=== PATIENT | male | born 1980 | race Two or more races ===

== ENCOUNTER 2016-12-27 00:09 | Inpatient (IN) | payer MEDICAID, OTHER ==
[~2016-12-27] VITALS: Ht 170.2 cm; Wt 102.5 kg
[~2016-12-27 00:09] MED LIST: ASPI-605 PO; ATOR80TA PO; ENAL10TA PO; FLUC100T8 PO; Gemfibrozil PO; HYDR-552 PO; INSU100I14 SQ; INSU100V10 SQ; METF10002 PO; NIAC500T8 PO; PANT40TA2 PO
[2016-12-27] MEDS ORDERED: IV NORMAL SALINE 1000 ML BAG IV ONE (00:30)
[2016-12-27] MEDS ORDERED: ONDANSETRON 4 MG/2 ML VIAL IV ONE (00:30)
[2016-12-27] MEDS ORDERED: HYDROMORPHONE 1 MG/1 ML DISP.SYRIN IV ONE ×2 (00:30→02:00)
--- NOTE | 2016-12-27 00:30 | NUR ---
PATIENT WALKED INTO ER C/O CP RADIATING TO BILATERAL LOWER QAUDRANT THAT STARTED IN THE AM OF 12/26/16. PATIENT IS NAUSEATED BUT HAS NOT VOMITIED. CAME IN FOR WORSENING PAIN
[2016-12-27] MEDS ORDERED: FENO145T20 PO (00:33)
[2016-12-27] MEDS ORDERED: GLIM4TAB3 PO (00:33)
[2016-12-27] MEDS ORDERED: JANUMET PO (00:33)
--- NOTE | 2016-12-27 00:33 | NUR ---
PT GAVE ME NAMES,DOSES AND FREQUENCY OF DAILY MEDS.PT STATES TAKES ONLY 4 MEDS NOW
[2016-12-27] MEDS ORDERED: HYDROMORPHONE 1 MG/1 ML DISP.SYRIN ONE ×3 (00:41→06:25)
[2016-12-27] MEDS ORDERED: ONDANSETRON 4 MG/2 ML VIAL ONE (00:41)
[2016-12-27 01:11] LABS: HEMOGLOBIN 16.3 G/DL (14.0-18.0); MEAN CORPUSCULAR HEMOGLOBIN 33.2 UUG (27.0-31.0); MEAN CORPUSCULAR HGB CONC 41 g/dL (32.0-37.0); MEAN CORPUSCULAR VOLUME 81.7 FL (82.0-92.0); PLATELET COUNT (AUTO) 355 K/UL (150-450); WHITE BLOOD COUNT (AUTO) 10.1 K/UL (4.0-11.2)
[2016-12-27 01:22] LABS: BAND % (MANUAL) 2 % (0-10); EOSINOPHILS % (MANUAL) 2 % (0-8); LYMPHOCYTES % (MANUAL) 36 % (20-40); MONOCYTES % (MANUAL) 2 % (2-10); NEUTROPHILS % (MANUAL) 58 % (42-75)
[2016-12-27 01:51] LABS: BILIRUBIN,TOTAL 1.4 mg/dL (0.1-1.0); POTASSIUM 3.3 mmol/L (3.5-5.1)
[2016-12-27 01:52] LABS: BILIRUBIN,DIRECT 0.1 mg/dL (0.0-0.2)
[2016-12-27] MEDS ORDERED: POTASSIUM CHLORIDE 40 MEQ in IV NS 1000 ML 1,000 ML IV STA (02:08)
[2016-12-27] MEDS ORDERED: IV NS 1000 ML 1,000 ML IV PRN (02:51)
[2016-12-27] MEDS ORDERED: MORPHINE SULFATE 2 MG/1 ML DISP.SYRIN IV PRN (03:00)
[2016-12-27] MEDS ORDERED: Z GUARD REMEDY PASTE 57 GM TUBE TOP PRN (03:00)
[2016-12-27] MEDS ORDERED: ONDANSETRON 4 MG/2 ML VIAL IV PRN (03:00)
[2016-12-27] MEDS ORDERED: TEMAZEPAM 7.5 MG CAPSULE PO PRN (03:00)
[2016-12-27] MEDS ORDERED: MAGNESIUM HYDROXIDE 30 ML LIQUID UDC PO PRN (03:00)
[2016-12-27] MEDS ORDERED: DEXTROSE 50% 50 ML DISP.SYRIN IV PRN (03:00)
[2016-12-27] MEDS ORDERED: INSULIN REGULAR, HUMAN 300 UNITS/3 ML VIAL SQ PRN (03:00)
[2016-12-27] MEDS ORDERED: ACETAMINOPHEN 325 MG TABLET PO PRN (03:00)
--- NOTE | 2016-12-27 03:02 | NUR ---
Transfered to 2nd floor Med Surg via antonio
--- NOTE | 2016-12-27 03:30 | NUR ---
CALL TO DR. VEE FOR CLARIFICATION OF ORDERS REGARDING IVF ORDERED BY ER-MD. PER DR. VEE, OKAY TO COMPLETE 1ST BAG OF 40 MEQ KCL IN 1L NS THEN CONTINUE MAINTENANCE IVF. PATIENT ALSO STATED THAT ORDERED MORPHINE DOES NOT MANAGE HIS PAIN WELL IN PAST, REQUESTED DILAUDID INSTEAD. NOTIFIED DR. VEE, ORDERS RECEIVED. SEE ORDER HISTORY.
[2016-12-27] MEDS ORDERED: HYDROMORPHONE 1 MG/1 ML DISP.SYRIN IM PRN (03:45)
[2016-12-27 04:36] VITALS: BP 121/90
[2016-12-27 05:10] LABS: TOTAL PROTEIN, SERUM 7.4 g/dL (6.4-8.2)
[2016-12-27 05:12] LABS: CREATININE 1.1 mg/dL (0.6-1.3)
--- NOTE | 2016-12-27 06:58 | NUR ---
STK MED ONCE 1 mg Dilaudid pulled from pyxis, administered as ordered. See eMAR
[2016-12-27] MEDS ORDERED: GLIMEPIRIDE 4 MG TABLET PO SCH (08:00)
--- NOTE | 2016-12-27 08:00 | NUR ---
RERSTING WELL NO SOB OR N/V OR PAIN AT THIS TIME CONTINUE IVF EAT CLEAR LIQ DIET MOD AMT CALL COE IN REACH AND INSTRUCTION TO CALL WHEN NEEDED
[2016-12-27] MEDS: PANTOPRAZOLE SODIUM 40 MG TABLET.DR PO SCH (08:38)
[2016-12-27] MEDS: ASPIRIN EC 81 MG TABLET.DR PO SCH (08:38)
[2016-12-27] MEDS: BLOOD SUGAR DIAGNOSTIC 1 EACH STRIP VI SCH ×8 (08:39→23:06)
[2016-12-27] MEDS ORDERED: METFORMIN HCL 500 MG TABLET PO SCH (09:00)
[2016-12-27] MEDS ORDERED: FENOFIBRATE NANOCRYSTALLIZED 145 MG TABLET PO SCH (09:00)
[2016-12-27] MEDS ORDERED: LINAGLIPTIN 5 MG TABLET PO SCH (09:00)
[2016-12-27] MEDS ORDERED: JANUMET PO SCH (09:00)
[2016-12-27] MEDS: INSULIN REGULAR, HUMAN 300 UNIT/3 ML VIAL SQ PRN ×2 (09:29→12:25)
--- NOTE | 2016-12-27 09:30 | NUR ---
ELDER BAINS SEE PATIENT AND LAB RESULT AND ORDER IN CHART
[2016-12-27 09:48] LABS: HEMATOCRIT 37.4 % (40-50); HEMOGLOBIN 14.7 G/DL (14.0-18.0); MEAN CORPUSCULAR HEMOGLOBIN 32.6 UUG (27.0-31.0); MEAN CORPUSCULAR HGB CONC 39 g/dL (32.0-37.0); MEAN CORPUSCULAR VOLUME 83.1 FL (82.0-92.0); PLATELET COUNT (AUTO) 342 K/UL (150-450); RED BLOOD CELL COUNT(AUTO) 4.51 MIL/UL (4.7-6.1); WHITE BLOOD COUNT (AUTO) 8.1 K/UL (4.0-11.2)
--- NOTE | 2016-12-27 10:00 | NUR ---
NPO FOR CT SCAN OF ABD WITHUOT CONTRAST
[2016-12-27] MEDS: HYDROMORPHONE 1 MG/1 ML DISP.SYRIN IV PRN ×4 (10:15→21:10)
--- NOTE | 2016-12-27 10:30 | NUR ---
TO CT SCAN VIA W/C CONDITION STABLE
--- NOTE | 2016-12-27 10:45 | NUR ---
BACK TO ROOM DR MILLER SEE PATIENT AND URINE SENT TO LAB ORDER
[2016-12-27 10:59] LABS: EOSINOPHILS % (MANUAL) 2 % (0-8); LYMPHOCYTES % (MANUAL) 39 % (20-40); NEUTROPHILS % (MANUAL) 59 % (42-75)
[2016-12-27 11:51] LABS: *BLOOD, URINE NEGATIVE (NEGATIVE); *CLARITY,URINE CLEAR (CLEAR); *COLOR,URINE YELLOW (YELLOW); *KETONES,URINE NEGATIVE (NEGATIVE); *PROTEIN,URINE 1+ (NEGATIVE); *UROBILINOGEN,URINE 0.2 E.U./dl (NORMAL); LEUKOCYTE ESTERASE ,URINE NEGATIVE (NEGATIVE); NITRITE, URINE NEGATIVE (NEGATIVE); PH,URINE 5.5 (5.0-8.0)
[2016-12-27] MEDS ORDERED: POTASSIUM CHLORIDE 20 MEQ TAB.PRT.SR PO ONE (12:00)
[2016-12-27 12:02] LABS: *BILIRUBIN,URIN 1+ (NEGATIVE); UGLUCOSE 2+ (NEGATIVE)
[2016-12-27 12:16] LABS: RBC,URINE 0-3 /HPF (0-3)
[2016-12-27 12:17] LABS: BACTERIA,URINE FEW /HPF (NONE SEEN); SQUAMOUS EPITHELIAL CELL,UR MANY /HPF (NONE SEEN)
--- NOTE | 2016-12-27 13:06 | NUR ---
Pt reassignment and full SBAR report received by WOODY Ball.
[2016-12-27 13:16] VITALS: BP 108/75
[2016-12-27 13:42] LABS: BASOPHILS % (AUTO) 0.7 % (0.0-2.0); EOSINOPHILS # (AUTO) 0.3 K/uL (0.0-0.7); EOSINOPHILS % (AUTO) 4.9 % (0.0-7.0); LYMPHOCYTES # (AUTO) 2.8 K/UL (0.8-4.8); MONOCYTES # (AUTO) 0.5 K/UL (0.1-1.30); MONOCYTES % (AUTO) 6.9 % (0.0-11.0); NEUTROPHILS # (AUTO) 3.2 K/UL (1.8-8.9); NEUTROPHILS % (AUTO) 45.5 % (38.5-71.5); PLATELET COUNT (AUTO) 317 K/UL (150-450); WHITE BLOOD COUNT (AUTO) 6.8 K/UL (4.0-11.2)
[2016-12-27] MEDS: CEFTRIAXONE 1 G in IV DEXTROSE 5% 50 ML IV SCH (13:42)
[2016-12-27 14:49] LABS: HEMATOCRIT 33.7 % (40-50); HEMOGLOBIN 11.4 G/DL (14.0-18.0); MEAN CORPUSCULAR HEMOGLOBIN 28.1 UUG (27.0-31.0); MEAN CORPUSCULAR HGB CONC 34 g/dL (32.0-37.0); MEAN CORPUSCULAR VOLUME 83.4 FL (82.0-92.0); RED BLOOD CELL COUNT(AUTO) 4.04 MIL/UL (4.7-6.1)
[2016-12-27] MEDS: IV D5/ 0.9% NACL 1,000 ML IV PRN (16:00)
[2016-12-27] MEDS: GEMFIBROZIL 600 MG TABLET PO SCH ×2 (16:03→20:14)
[2016-12-27] MEDS ORDERED: BLOOD SUGAR DIAGNOSTIC 1 EACH STRIP VI SCH (16:30)
[2016-12-27] MEDS ORDERED: INSULIN REGULAR, HUMAN 100 UNIT in IV NORMAL SALINE 99 ML IV PRN ×2 (16:30)
[2016-12-27 16:39] VITALS: BP 127/82
[2016-12-27] MEDS: INSULIN REGULAR, HUMAN 100 UNIT in IV NORMAL SALINE 99 ML IV PRN ×2 (17:04)
[2016-12-27 17:15] LABS: BILIRUBIN,TOTAL 0.5 mg/dL (0.1-1.0); POTASSIUM 4.5 mmol/L (3.5-5.1)
[2016-12-27 17:16] LABS: TOTAL PROTEIN, SERUM 7.2 g/dL (6.4-8.2)
[2016-12-27 17:18] LABS: MAGNESIUM 1.5 mg/dL (1.8-2.4); PHOSPHOROUS 4.1 mg/dL (2.5-4.9)
--- NOTE | 2016-12-27 19:20 | NUR ---
Made rounds and seen patient lying high bentley's position with sister and mother. Pt is full AOX4 ambulates to bathroom, non labored breathing, on telebox cardiac rehab nurse w/ SR on the monitor 90's. Denies any discomfort (epigastric pain). On continuos insulin drip and on blood sugar monitoring.
--- NOTE | 2016-12-27 19:32 | NUR ---
End of shift: Pt resting in bed awake and alert with family at the bedside. director quality systems and alarms working properly wnl. IV insulin drip infusing as ordered per protocol. IVF infusing as ordered. All needs met. Pt stable and nad noted.
[2016-12-27 20:00] VITALS: BP 118/90
[2016-12-27] MEDS: NIACIN 500 MG TABLET PO SCH (20:13)
--- NOTE | 2016-12-27 20:50 | NUR ---
Dr. Reeves changed protocol blood sugar range from 95-150 to 80 to 100mg/dl. Following same protocol with different range. BS @ 2000 119mg/dl.
--- NOTE | 2016-12-27 21:00 | NUR ---
BS is 120mg/dl. Kept the same rate 1 unit/hr.Encouaraged to rest and drink water, compliant.
--- NOTE | 2016-12-27 22:00 | NUR ---
BS 119mg/dl, kept the same rate 1 unit/hr. Pt observed resting/sleeping, continue monitor.
[2016-12-28] VITALS: BP 114/82
--- NOTE | 2016-12-28 | NUR ---
BS 115mg/dl, kept Insulin drip 1 unit/hr. Continue monitor. Pt intermittently awake.
[2016-12-28] MEDS: BLOOD SUGAR DIAGNOSTIC 1 EACH STRIP VI SCH ×25 (00:22→23:49)
--- NOTE | 2016-12-28 01:00 | NUR ---
BS 114mg/dl, maintained 1 unit /hr of insulin drip.
[2016-12-28] MEDS: HYDROMORPHONE 1 MG/1 ML DISP.SYRIN IV PRN ×6 (01:10→21:14)
--- NOTE | 2016-12-28 02:00 | NUR ---
Blodd sugar 129mg/dl, continue Insulin drip of 1 unit/hr.Continue monitor.
[2016-12-28 04:00] VITALS: BP 114/84
[2016-12-28] MEDS: IV D5/ 0.9% NACL 1,000 ML IV PRN ×2 (05:09→15:35)
[2016-12-28] MEDS: HYDROCODONE/APAP 5-325MG TABLET PO PRN (06:19)
[2016-12-28] MEDS: PANTOPRAZOLE SODIUM 40 MG TABLET.DR PO SCH (06:21)
--- NOTE | 2016-12-28 07:00 | NUR ---
BS has been below 150mg/dl, BS check Q1.Remained on Insulin drip 1unit/hr. Lowest BS was 114mg/dl and highest is 150mg/dl for the whole shift.
--- NOTE | 2016-12-28 07:10 | NUR ---
Report to WOODY Menendez
[2016-12-28 07:31] LABS: HEMATOCRIT 35.8 % (40-50); HEMOGLOBIN 12.6 G/DL (14.0-18.0); MEAN CORPUSCULAR HEMOGLOBIN 29.5 UUG (27.0-31.0); MEAN CORPUSCULAR HGB CONC 35 g/dL (32.0-37.0); MEAN CORPUSCULAR VOLUME 83.6 FL (82.0-92.0); PLATELET COUNT (AUTO) 264 K/UL (150-450); RED BLOOD CELL COUNT(AUTO) 4.28 MIL/UL (4.7-6.1); WHITE BLOOD COUNT (AUTO) 5.3 K/UL (4.0-11.2)
[2016-12-28] MEDS: GEMFIBROZIL 600 MG TABLET PO SCH ×2 (08:02→20:49)
[2016-12-28] MEDS: ASPIRIN EC 81 MG TABLET.DR PO SCH (08:02)
[2016-12-28 10:56] LABS: CREATININE 0.7 mg/dL (0.6-1.3); PHOSPHOROUS 3.7 mg/dL (2.5-4.9)
[2016-12-28 10:58] LABS: MAGNESIUM 1.6 mg/dL (1.8-2.4); THYROID STIMULATING HORMONE 1.664 mIU/mL (0.358-3.740); TOTAL PROTEIN, SERUM 6.7 g/dL (6.4-8.2)
[2016-12-28 10:59] LABS: BILIRUBIN,TOTAL 0.6 mg/dL (0.2-1.0); POTASSIUM 4.2 mmol/L (3.5-5.1)
[2016-12-28 11:47] VITALS: BP 118/86
[2016-12-28] MEDS: CEFTRIAXONE 1 G in IV DEXTROSE 5% 50 ML IV SCH (13:16)
[2016-12-28 14:28] LABS: BAND % (MANUAL) 2 % (0-10); EOSINOPHILS % (MANUAL) 10 % (0-8); LYMPHOCYTES % (MANUAL) 48 % (20-40); METAMYELOCYTES % 1 % (0-1); MONOCYTES % (MANUAL) 6 % (2-10); NEUTROPHILS % (MANUAL) 33 % (42-75)
--- NOTE | 2016-12-28 15:02 | NUR ---
ELDER Watters here to see pt. Full report given. New orders received. stated that it was okay for pt to advance diet to full liquids.
[2016-12-28 16:24] VITALS: BP 123/85
[2016-12-28] MEDS: INSULIN REGULAR, HUMAN 100 UNIT in IV NORMAL SALINE 99 ML IV PRN ×2 (17:22)
--- NOTE | 2016-12-28 18:44 | NUR ---
End of shift: Pt resting in bed awake and alert. child monitor and alarms working properly wnl. IV insulin drip infusing as ordered per protocol. IVF infusing as ordered. All needs met. Pt stable and nad noted.
[2016-12-28 20:00] VITALS: BP 124/89
--- NOTE | 2016-12-28 20:00 | NUR ---
RECEIVED PT. AWAKE, ALERT & ORIENTED X4. C/O PAIN ON UPPER ABD. REPOSITIONED, DOES NOT NEED MED. FOR PAIN THIS TIME. IVF D5NS @ 100CC/HR ON RFA. ON REGULAR INSULIN DRIP @ 1 UNIT/HR. ON RM AIR W/ O2 SAT OF 100%.
[2016-12-28] MEDS: NIACIN 500 MG TABLET PO SCH (20:49)
--- NOTE | 2016-12-28 21:13 | NUR ---
C/O UPPER ABD. PAIN SCALE OF 6/10, MEDICATED W/ DILAUDID 1MG IVP ORDERED.
[2016-12-29] VITALS: BP 118/87
[2016-12-29] MEDS: BLOOD SUGAR DIAGNOSTIC 1 EACH STRIP VI SCH ×20 (00:58→23:48)
[2016-12-29] MEDS: HYDROMORPHONE 1 MG/1 ML DISP.SYRIN IV PRN ×6 (01:11→22:19)
[2016-12-29] MEDS: IV D5/ 0.9% NACL 1,000 ML IV PRN ×3 (02:41→20:28)
[2016-12-29 04:00] VITALS: BP 118/82
--- NOTE | 2016-12-29 06:00 | NUR ---
RESTING QUITELY THIS TIME.
[2016-12-29] MEDS: PANTOPRAZOLE SODIUM 40 MG TABLET.DR PO SCH (06:06)
[2016-12-29 06:54] LABS: BASOPHILS % (AUTO) 0.9 % (0.0-2.0); EOSINOPHILS # (AUTO) 0.3 K/uL (0.0-0.7); EOSINOPHILS % (AUTO) 6.4 % (0.0-7.0); HEMATOCRIT 36.1 % (40-50); LYMPHOCYTES # (AUTO) 2.1 K/UL (0.8-4.8); LYMPHOCYTES % (AUTO) 48.1 % (20.5-51.5); MEAN CORPUSCULAR HEMOGLOBIN 28.4 UUG (27.0-31.0); MEAN CORPUSCULAR HGB CONC 34 g/dL (32.0-37.0); MEAN CORPUSCULAR VOLUME 83.5 FL (82.0-92.0); MONOCYTES # (AUTO) 0.4 K/UL (0.1-1.30); MONOCYTES % (AUTO) 8.7 % (0.0-11.0); NEUTROPHILS # (AUTO) 1.6 K/UL (1.8-8.9); NEUTROPHILS % (AUTO) 35.9 % (38.5-71.5); PLATELET COUNT (AUTO) 232 K/UL (150-450); RED BLOOD CELL COUNT(AUTO) 4.32 MIL/UL (4.7-6.1); WHITE BLOOD COUNT (AUTO) 4.4 K/UL (4.0-11.2)
[2016-12-29 07:26] LABS: HEMOGLOBIN 12.3 G/DL (14.0-18.0)
[2016-12-29 07:37] LABS: MAGNESIUM 1.7 mg/dL (1.8-2.4); PHOSPHOROUS 3.4 mg/dL (2.5-4.9)
[2016-12-29 07:58] LABS: CREATININE 0.8 mg/dL (0.6-1.3); POTASSIUM 3.8 mmol/L (3.5-5.1)
[2016-12-29 08:00] VITALS: BP 119/87
[2016-12-29] MEDS: GEMFIBROZIL 600 MG TABLET PO SCH ×2 (08:17→20:22)
[2016-12-29] MEDS: HYDROCODONE/APAP 5-325MG TABLET PO PRN (08:17)
[2016-12-29] MEDS: ASPIRIN EC 81 MG TABLET.DR PO SCH (08:17)
[2016-12-29] MEDS ORDERED: IV NORMAL SALINE 250 ML BAG IV ONE (09:00)
[2016-12-29 09:23] LABS: BILIRUBIN,TOTAL 0.7 mg/dL (0.2-1.0); CREATININE 0.8 mg/dL (0.6-1.3); MAGNESIUM 1.5 mg/dL (1.8-2.4)
[2016-12-29 09:58] LABS: TOTAL PROTEIN, SERUM 6.7 g/dL (6.4-8.2)
[2016-12-29 11:56] VITALS: BP 137/59
[2016-12-29] MEDS: CEFTRIAXONE 1 G in IV DEXTROSE 5% 50 ML IV SCH (12:16)
[2016-12-29] MEDS: MAGNESIUM SULFATE/D5W 100 ML IV SCH ×2 (13:14→14:17)
[2016-12-29 15:43] VITALS: BP 131/91
[2016-12-29] MEDS ORDERED: DEXTROSE 50% 50 ML DISP.SYRIN IV PRN (16:00)
--- NOTE | 2016-12-29 17:00 | NUR ---
At this time patient had a one to one session with manager export who educated patient regarding following diet. Addendum: 12/29/16 at 1907 by MILAD SABILLON RN This education session also covered more education on Diabetes Mellitus.
[2016-12-29] MEDS: INSULIN REGULAR, HUMAN 100 UNIT in IV NORMAL SALINE 99 ML IV PRN ×2 (17:39)
--- NOTE | 2016-12-29 19:20 | NUR ---
Bedside reporting with WOODY Mark. Patient in bed, awake, denies any pain/discomforts at this time. On continuous Insulin drip as ordered. Denies s/s of hypo/hyperglycemia. Continue care as planned.
[2016-12-29 20:05] VITALS: BP 128/91
[2016-12-29] MEDS: NIACIN 500 MG TABLET PO SCH (20:21)
[2016-12-30] VITALS: BP 128/95
[2016-12-30] MEDS: BLOOD SUGAR DIAGNOSTIC 1 EACH STRIP VI SCH ×5 (02:00→10:10)
[2016-12-30] MEDS: HYDROMORPHONE 1 MG/1 ML DISP.SYRIN IV PRN ×3 (02:04→10:11)
[2016-12-30 04:00] VITALS: BP 119/88
[2016-12-30] MEDS: PANTOPRAZOLE SODIUM 40 MG TABLET.DR PO SCH (06:04)
--- NOTE | 2016-12-30 06:15 | NUR ---
VSS. Slept at short interval. Medicated 3x for pain with relief. Continue on Insulin drip as ordered. no s/s of Hypo/hyperglycemia noted. All needs attended and met. No significant event reported all night. Continue care as planned.
[2016-12-30] MEDS: IV D5/ 0.9% NACL 1,000 ML IV PRN (06:38)
[2016-12-30 06:40] LABS: CREATININE 0.9 mg/dL (0.6-1.3); MAGNESIUM 1.7 mg/dL (1.8-2.4); POTASSIUM 3.8 mmol/L (3.5-5.1)
[2016-12-30 07:28] VITALS: BP 124/90
--- NOTE | 2016-12-30 07:30 | NUR ---
RECIEVED PT LYING IN BED, AWAKE , ALERT AND ORIENTEDX3. SR ON THE MONITOR, DENIES OF ANY DISCOMFORTS AT THIS TIME. MAIN IVF IS D5NS AT 100ML /HR INFUSING WELL ON THE RIGHT FA. RECIEVED THE INSULIN DRIP AT 2UNITS/HR INFUSING ON THE RIGHT FA. LAST BS IS 127. PT DENIES ANY DIZZINESS. SKIN IS DRY AND WARM. MOVES ALL EXTREMETIES WITHOUT ANY PROBLEM.
--- NOTE | 2016-12-30 08:00 | NUR ---
ACCU CHECK IS EVERY 2HRS. DONE AT 8AM-119. NO CHANGE IN THE RATE PER INSULIN PROTOCOL.
[2016-12-30] MEDS: ASPIRIN EC 81 MG TABLET.DR PO SCH (08:04)
[2016-12-30] MEDS: GEMFIBROZIL 600 MG TABLET PO SCH (08:07)
--- NOTE | 2016-12-30 09:00 | NUR ---
PT ATE WELL. NO NAUSEA VOMITING NOTED.
[2016-12-30] MEDS ORDERED: MAGNESIUM OXIDE 400 MG TABLET PO ONE (09:30)
--- NOTE | 2016-12-30 09:30 | NUR ---
DROPPED THE INSULIN DOWN TO 1UNIT PER INSULIN PROTOCOL. PHARMACIST MINI AWARE. REPORT GIVEN TO ISHMAEL MCKAY.
--- NOTE | 2016-12-30 10:00 | NUR ---
SEEN BY STOCK CONTROL CLERK WITH DISCHARGE ORDER, SPOKE WITH PT REGARDING HOME FOLLOW-UP
[2016-12-30] MEDS: INSULIN REGULAR, HUMAN 100 UNIT in IV NORMAL SALINE 99 ML IV PRN ×2 (10:13)
[2016-12-30] MEDS ORDERED: NIAC500T8 PO (11:14)
[2016-12-30] MEDS ORDERED: GEMF600T3 PO (11:14)
[2016-12-30] MEDS ORDERED: CEPH-570 PO (11:14)
[2016-12-30] MEDS ORDERED: HYDR-3326 PO (11:14)
[2016-12-30 11:37] VITALS: BP 140/95
--- NOTE | 2016-12-30 12:04 | NUR ---
DISCHARGE INSTRUCTION GIVEN SO WITH DIABETIC TEACHING BY JUNIOR SOFTWARE ENGINEER AND PHARMACY
--- NOTE | 2016-12-30 12:37 | NUR ---
HOME ACCOMPANIED BY MOTHER STABLE VIA PRIVATE CAR
== END 2016-12-30 12:35 | disposition home or self-care (01) | DRG 282 ==
LOC: ER 00:10 → MED 02:53 → TELE-TD 13:12 → MED 12-30 11:28
PROVIDERS: ADMIT Family Medicine; ATTEND Family Medicine
DX: K85.90 Acute pancreatitis without necrosis or infection, unspecified (principal); E11.65 Type 2 diabetes mellitus with hyperglycemia; E88.81 Metabolic syndrome and other insulin resistance; I10 Essential (primary) hypertension; E78.5 Hyperlipidemia, unspecified; E87.6 Hypokalemia; M94.0 Chondrocostal junction syndrome [Tietze]; K86.1 Other chronic pancreatitis; E87.1 Hypo-osmolality and hyponatremia
CPT/HCPCS: 36415; 70030-TC; 71010; 83550; 83690; 83735; 84100; 84300; 84443; 84478; 84550; 85025; 87077; 87086; 93005; 93307; J0696; J1170; J1815; J2405; J3475; J3480; J3490; J7030; J7060

== ENCOUNTER 2017-03-07 01:02 | Inpatient (IN) | payer MEDICAID ==
[~2017-03-07] VITALS: Ht 170.2 cm; Wt 103.0 kg
[2017-03-07] VITALS (12 sets, daily range): BP systolic 111–143; BP diastolic 75–85
[~2017-03-07 01:02] MED LIST changes: -ATOR80TA PO; +CEPH-570 PO; -ENAL10TA PO; -FLUC100T8 PO; +GEMF600T3 PO; +GLIM4TAB3 PO; -Gemfibrozil PO; +HYDR-3326 PO; -HYDR-552 PO; -INSU100I14 SQ; -INSU100V10 SQ; +JANUMET PO; -METF10002 PO; -PANT40TA2 PO
[2017-03-07] MEDS ORDERED: HYDROMORPHONE 1 MG/1 ML DISP.SYRIN IV ONE ×2 (01:15→03:30)
[2017-03-07] MEDS ORDERED: IV NORMAL SALINE 1000 ML BAG IV ONE ×2 (01:30→02:30)
[2017-03-07] MEDS ORDERED: HYDROMORPHONE 2 MG/1 ML DISP.SYRIN ONE ×3 (01:31→06:19)
[2017-03-07] MEDS ORDERED: ATOR40TA PO (01:35)
[2017-03-07] MEDS ORDERED: FENO145T20 PO (01:35)
[2017-03-07] MEDS ORDERED: SITA1TAB6 PO (01:35)
[2017-03-07 02:17] LABS: EOSINOPHILS # (AUTO) 0.5 K/uL (0.0-0.7); MONOCYTES # (AUTO) 0.6 K/UL (0.1-1.30)
[2017-03-07 02:25] LABS: BASOPHILS # (AUTO) 0.1 K/uL (0.0-8.0); EOSINOPHILS % (AUTO) 5.2 % (0.0-7.0); HEMATOCRIT 39.3 % (40-50); HEMOGLOBIN 13.7 G/DL (14.0-18.0); LYMPHOCYTES # (AUTO) 3.3 K/UL (0.8-4.8); LYMPHOCYTES % (AUTO) 34.2 % (20.5-51.5); MEAN CORPUSCULAR HEMOGLOBIN 29.3 UUG (27.0-31.0); MEAN CORPUSCULAR HGB CONC 35 g/dL (32.0-37.0); MONOCYTES % (AUTO) 6.5 % (0.0-11.0); NEUTROPHILS # (AUTO) 5.1 K/UL (1.8-8.9); NEUTROPHILS % (AUTO) 53.1 % (38.5-71.5); PLATELET COUNT (AUTO) 414 K/UL (150-450); RED BLOOD CELL COUNT(AUTO) 4.68 MIL/UL (4.7-6.1); WHITE BLOOD COUNT (AUTO) 9.6 K/UL (4.0-11.2)
[2017-03-07 04:32] LABS: POTASSIUM 4.1 mmol/L (3.5-5.1)
[2017-03-07 04:35] LABS: TOTAL PROTEIN, SERUM 7.9 g/dL (6.4-8.2)
[2017-03-07 04:44] LABS: BILIRUBIN,DIRECT 0.1 mg/dL (0.0-0.2)
[2017-03-07 04:49] LABS: BILIRUBIN,TOTAL 0.7 mg/dL (0.1-1.0)
[2017-03-07] MEDS ORDERED: IV NS 1000 ML 1,000 ML IV PRN (05:04)
--- NOTE | 2017-03-07 05:12 | NUR ---
Pt. admitted to CCU , under care of COLLIN Gutierrez List completed.
[2017-03-07] MEDS ORDERED: INSULIN REGULAR, HUMAN 1,000 UNITS/10 ML VIAL SUBCUT ONE (05:15)
[2017-03-07] MEDS ORDERED: MISCELLANEOUS MED XX ONE (05:15)
[2017-03-07] MEDS ORDERED: HYDROMORPHONE 1 MG/1 ML DISP.SYRIN IV PRN ×2 (05:15→05:45)
[2017-03-07] MEDS ORDERED: INSULIN REGULAR, HUMAN 300 UNIT/3 ML VIAL ONE (05:15)
[2017-03-07] MEDS ORDERED: ACETAMINOPHEN 325 MG TABLET PO PRN (05:15)
--- NOTE | 2017-03-07 05:50 | NUR ---
Received patient to CCU #4. Alert & orientated X 4.
--- NOTE | 2017-03-07 05:53 | NUR ---
TRANSPORTED PATIENT VIA GURNEY TO CCU-4, HAND OFF GIVEN TO WOODY WILLIS AT BEDSIDE.
[2017-03-07 05:57] LABS: BAND % (MANUAL) 3 % (0-10); EOSINOPHILS % (MANUAL) 5 % (0-8); LYMPHOCYTES % (MANUAL) 32 % (20-40); MONOCYTES % (MANUAL) 7 % (2-10); NEUTROPHILS % (MANUAL) 53 % (42-75)
--- NOTE | 2017-03-07 06:10 | NUR ---
Note to pharmacy: Dilaudid given & charted elsewhere.
--- NOTE | 2017-03-07 06:10 | NUR ---
Ch[place] Sunshine N.P. ok'd start Dilaudid dose now.
[2017-03-07] MEDS ORDERED: INSULIN REGULAR, HUMAN 100 UNIT in IV NORMAL SALINE 99 ML IV PRN ×2 (07:00)
[2017-03-07] MEDS ORDERED: INSULIN REGULAR, HUMAN 100 UNITS in IV NORMAL SALINE 100 ML IV ONE ×2 (07:15)
--- NOTE | 2017-03-07 07:15 | NUR ---
report received from Inga. 36yr old male admitted for pancreatitis and hyperglycemia. on insulin drip @ 1.5 units per hr.via left forearm IV site.. awake alert and oriented. ekg sinus rhythm. afebrile. Addendum: 03/07/17 at 0844 by DAMIAN MARK RN Amended: Links added.
[2017-03-07] MEDS: BLOOD SUGAR DIAGNOSTIC 1 EACH STRIP VI SCH ×8 (07:23→20:51)
[2017-03-07] MEDS ORDERED: HYDROMORPHONE 2 MG/1 ML DISP.SYRIN IV PRN (07:30)
--- NOTE | 2017-03-07 08:00 | NUR ---
accucheck 189, remains on insulin drip @ 1.5units/hr via left forearm IV Addendum: 03/07/17 at 0833 by DAMIAN MAKR RN Amended: Links added.
--- NOTE | 2017-03-07 09:00 | NUR ---
tristan 175, remains on 1.5 units per hr insulin drip Addendum: 03/07/17 at 0934 by DAMIAN MARK RN Amended: Links added.
[2017-03-07 09:13] LABS: MAGNESIUM 1.4 mg/dL (1.8-2.4); PHOSPHOROUS 4.5 mg/dL (2.5-4.9)
[2017-03-07] MEDS: FAMOTIDINE. 20 MG/2 ML VIAL IV SCH ×2 (09:24→20:51)
--- NOTE | 2017-03-07 09:25 | NUR ---
medicated for abdominal pain scale / Addendum: 03/07/17 at 0942 by DAMIAN MARK RN Amended: Links added.
[2017-03-07] MEDS: ENOXAPARIN SODIUM 40 MG/0.4 ML DISP.SYRIN SQ SCH (09:56)
--- NOTE | 2017-03-07 10:00 | NUR ---
accuchharriet 136, drip at 1.5 units per hr. IV fluid changed to d5NS at 75ml/hr Addendum: 03/07/17 at 1053 by DAMIAN MARK RN Amended: Links added.
[2017-03-07] MEDS ORDERED: IV D5 1/2 NS 1000 ML 1,000 ML IV PRN (10:15)
[2017-03-07] MEDS: IV D5/ 0.9% NACL 1,000 ML IV PRN (10:36)
--- NOTE | 2017-03-07 10:55 | NUR ---
patient verbalized no relief from dilaudid [address] Tommie Wooten informed Addendum: 03/07/17 at 1055 by DAMIAN MARK RN Amended: Links added. Addendum: 03/07/17 at 1111 by DAMIAN MARK RN Amended: Links added.
--- NOTE | 2017-03-07 11:11 | NUR ---
tristan 124, insulin drip @ 1.5 units per hr Addendum: 03/07/17 at 1111 by DAMIAN MARK RN Amended: Links added.
--- NOTE | 2017-03-07 11:33 | NUR ---
report given to Lucy Machined Parts Metal Sprayer
--- NOTE | 2017-03-07 12:00 | NUR ---
insulin drip at 1.5 units /hr. accucheck 134 Addendum: 03/07/17 at 1224 by DAMIAN MARK RN Amended: Links added.
--- NOTE | 2017-03-07 12:03 | NUR ---
report received from Lucy Director Advertising Addendum: 03/07/17 at 1343 by DAMIAN MARK RN Amended: Links added.
[2017-03-07] MEDS: HYDROMORPHONE 2 MG/1 ML DISP.SYRIN IV PRN ×4 (12:13→22:10)
--- NOTE | 2017-03-07 12:13 | NUR ---
medicated forabdominal pain scale /10 Addendum: 03/07/17 at 1223 by DAMIAN MARK RN Amended: Bay added. Addendum: 03/07/17 at 1224 by DAMIAN MARK RN Amended: Bay vidal.
--- NOTE | 2017-03-07 12:30 | NUR ---
seen by dr salvador triplett with orders . insulin drip dc/d. transfer orders to med surg received. Addendum: 03/07/17 at 1406 by DAMIAN MARK RN Amended: Links added.
[2017-03-07] MEDS: ONDANSETRON 4 MG/2 ML VIAL IV PRN ×2 (12:36→17:23)
[2017-03-07] MEDS ORDERED: DEXTROSE 50% 50 ML DISP.SYRIN IV PRN ×2 (13:30)
[2017-03-07] MEDS ORDERED: INSULIN REGULAR, HUMAN 300 UNIT/3 ML VIAL SQ PRN (13:30)
[2017-03-07] MEDS ORDERED: INSULIN REGULAR, HUMAN 300 UNITS/3 ML VIAL SQ PRN (13:30)
--- NOTE | 2017-03-07 14:15 | NUR ---
report given to Adryan RN Addendum: 03/07/17 at 1432 by DAMIAN MARK RN Amended: Links added.
--- NOTE | 2017-03-07 14:45 | NUR ---
TRANSFER FROM CCU. V/S STABLE. C/O INTERMITTANT CHEST PAIN--STATES IS MUCH LESS THAN WHEN HE WAS FIRST ADMITTED. NO SOB. NO OTHER C/O.
[2017-03-07] MEDS ORDERED: BLOOD SUGAR DIAGNOSTIC 1 EACH STRIP VI SCH (16:00)
--- NOTE | 2017-03-07 19:00 | NUR ---
RECEIVED PATIENT IN BED, ALERT ORIENTED, NO SOB , NO CHEST PAIN, CONT ON PAIN MANAGEMENT, ON CLEAR LIQUID DIET, BUT PATIENT NON COMPLIANT, DRINK MILK, AND ATE PUDDING. NO S/S OF DISTRESS.
[2017-03-08] VITALS (10 sets, daily range): BP systolic 120–147; BP diastolic 73–103
[2017-03-08] MEDS: IV D5/ 0.9% NACL 1,000 ML IV PRN (00:51)
[2017-03-08] MEDS: ONDANSETRON 4 MG/2 ML VIAL IV PRN ×3 (01:09→22:12)
[2017-03-08] MEDS: HYDROMORPHONE 2 MG/1 ML DISP.SYRIN IV PRN ×6 (02:20→21:55)
--- NOTE | 2017-03-08 04:39 | NUR ---
PATIENT SLEEP ON AND OFF, CONT ON PAIN MANAGEMENT, PAIN ON ABDOMEN, HAS X2 EPISODES OF VOMITTING UNDIGESTED FOOD, APPROX AMT 300CC EACH EPISODES, MEDICATED FOR NAUSEA/VOMITING, CONT TO MONITOR.
[2017-03-08] MEDS: BLOOD SUGAR DIAGNOSTIC 1 EACH STRIP VI SCH ×9 (06:24→23:02)
--- NOTE | 2017-03-08 07:39 | NUR ---
Awake, alert, oriented x 4. IVF infusing. Pain level 3/10, bearable
[2017-03-08 07:55] LABS: BASOPHILS # (AUTO) 0.1 K/uL (0.0-8.0); BASOPHILS % (AUTO) 0.6 % (0.0-2.0); EOSINOPHILS # (AUTO) 0.3 K/uL (0.0-0.7); EOSINOPHILS % (AUTO) 3.2 % (0.0-7.0); LYMPHOCYTES # (AUTO) 1.6 K/UL (0.8-4.8); LYMPHOCYTES % (AUTO) 19.1 % (20.5-51.5); MEAN CORPUSCULAR HEMOGLOBIN 28.1 UUG (27.0-31.0); MEAN CORPUSCULAR HGB CONC 33 g/dL (32.0-37.0); MEAN CORPUSCULAR VOLUME 84.8 FL (82.0-92.0); MONOCYTES # (AUTO) 0.3 K/UL (0.1-1.30); MONOCYTES % (AUTO) 3.4 % (0.0-11.0); NEUTROPHILS # (AUTO) 6.3 K/UL (1.8-8.9); NEUTROPHILS % (AUTO) 73.7 % (38.5-71.5); WHITE BLOOD COUNT (AUTO) 8.6 K/UL (4.0-11.2)
[2017-03-08 07:56] LABS: HEMOGLOBIN 11.4 G/DL (14.0-18.0)
[2017-03-08 07:57] LABS: HEMATOCRIT 34.3 % (40-50); PLATELET COUNT (AUTO) 276 K/UL (150-450)
[2017-03-08 07:58] LABS: RED BLOOD CELL COUNT(AUTO) 4.05 MIL/UL (4.7-6.1)
[2017-03-08] MEDS: FAMOTIDINE. 20 MG/2 ML VIAL IV SCH ×2 (08:14→20:59)
[2017-03-08] MEDS: INSULIN REGULAR, HUMAN 300 UNIT/3 ML VIAL SQ PRN ×3 (08:16→17:18)
[2017-03-08] MEDS: ENOXAPARIN SODIUM 40 MG/0.4 ML DISP.SYRIN SQ SCH (08:17)
[2017-03-08] MEDS ORDERED: IV NS 1000 ML 1,000 ML IV SCH (09:45)
--- NOTE | 2017-03-08 09:51 | NUR ---
Complaining of abdominal pain and nausea. Dilaudid and Zofran IV given as ordered, with relief
[2017-03-08 12:32] LABS: POTASSIUM 3.8 mmol/L (3.5-5.1)
[2017-03-08 12:33] LABS: CREATININE 0.8 mg/dL (0.6-1.3)
--- NOTE | 2017-03-08 14:17 | NUR ---
Complained of abdominal pain. Dilaudid IV given as ordered. Resting after
[2017-03-08] MEDS ORDERED: INSULIN REGULAR, HUMAN 100 UNIT in IV NORMAL SALINE 99 ML IV PRN ×2 (16:45)
--- NOTE | 2017-03-08 17:35 | NUR ---
36 yr old male who was admitted for pancreatitis, hyperglycemia secondary to high triglycerides. now being transferred back to ccu for insulin drip and high lipase. patient is awake alert and oriented. vital sign ar stable.. patient verbalized understanding of rationale for transfer Addendum: 03/08/17 at 1829 by DAMIAN MARK RN Amended: Links added.
--- NOTE | 2017-03-08 17:36 | NUR ---
Noted elevated lipase. Dr. Lopez informed with orders to transfer to ICU. Transferred per wheelchair. Report given to Emi.
[2017-03-08] MEDS: POTASSIUM CHLORIDE 20 MEQ in IV D5 1/2 NS 1000 ML 1,000 ML IV PRN (17:50)
--- NOTE | 2017-03-08 18:10 | NUR ---
started on main IV fluid d5 1/2 plus 20meq kcl at 100 ml/hr and also insulin drip 3units per hr. via left forearm iv site #20 Addendum: 03/08/17 at 1831 by DAMIAN MARK RN Amended: Links added.
--- NOTE | 2017-03-08 18:25 | NUR ---
medicated for abd pain scale 04/26 Addendum: 03/08/17 at 1825 by DAMIAN MARK RN Amended: Bay added. Addendum: 03/08/17 at 1831 by DAMIAN MARK RN Amended: Bay vidal.
--- NOTE | 2017-03-08 18:56 | NUR ---
tristan goodrich 211, insulin drip titrated down to 2 units/hr Addendum: 03/08/17 at 1856 by DAMIAN MARK RN Amended: Links added.
--- NOTE | 2017-03-08 19:22 | NUR ---
report given to Sasha Addendum: 03/08/17 at 1922 by DAMIAN MARK RN Amended: Links added.
--- NOTE | 2017-03-08 20:00 | NUR ---
Awake, alert, pleasant. Plans of care discussed and pt explained understanding. Family was here briefly; all appreciative of care and info. Remains on insulin drip per protocol with main IV infusing as well via left forearm. Stable VS and rhythm. Admits to bearable abdominal discomfort; made aware to call for PRN meds. Please see CCU flowsheet for full assessment and clinical data.
[2017-03-08] MEDS ORDERED: HYDROMORPHONE 2 MG/1 ML DISP.SYRIN ONE (21:57)
--- NOTE | 2017-03-08 22:30 | NUR ---
Had abdominal pain and nausea episodes, relieved with IV Dilaudid and Zofran. Sleeping at periodic intervals.
[2017-03-09] VITALS (22 sets, daily range): BP systolic 115–143; BP diastolic 68–94
[2017-03-09] MEDS: BLOOD SUGAR DIAGNOSTIC 1 EACH STRIP VI SCH ×24 (00:09→22:56)
[2017-03-09] MEDS: HYDROMORPHONE 2 MG/1 ML DISP.SYRIN IV PRN ×8 (03:11→23:00)
[2017-03-09] MEDS ORDERED: HYDROMORPHONE 2 MG/1 ML DISP.SYRIN ONE ×2 (03:22→05:55)
--- NOTE | 2017-03-09 03:30 | NUR ---
Had another unbearable abdominal pain episode relieved with IV Dilaudid. Nursing comfort measures observed at all times.
[2017-03-09] MEDS: ONDANSETRON 4 MG/2 ML VIAL IV PRN ×4 (04:10→18:56)
[2017-03-09] MEDS: POTASSIUM CHLORIDE 20 MEQ in IV D5 1/2 NS 1000 ML 1,000 ML IV PRN ×2 (04:15→14:29)
[2017-03-09 05:20] LABS: HEMATOCRIT 32.9 % (40-50); HEMOGLOBIN 11.6 G/DL (14.0-18.0); MEAN CORPUSCULAR HEMOGLOBIN 29.8 UUG (27.0-31.0); MEAN CORPUSCULAR HGB CONC 35 g/dL (32.0-37.0); MEAN CORPUSCULAR VOLUME 84.7 FL (82.0-92.0); PLATELET COUNT (AUTO) 312 K/UL (150-450); RED BLOOD CELL COUNT(AUTO) 3.89 MIL/UL (4.7-6.1); WHITE BLOOD COUNT (AUTO) 5.3 K/UL (4.0-11.2)
--- NOTE | 2017-03-09 06:00 | NUR ---
AM care rendered. Medicated with another IV Dilaudid dose, with relief. Remains on insulin drip per protocol. No untoward reactions noted. Restful, stable night. Please see CCU flowsheet for trends and clinical data.
[2017-03-09 07:27] LABS: EOSINOPHILS % (MANUAL) 7 % (0-8); LYMPHOCYTES % (MANUAL) 37 % (20-40); MONOCYTES % (MANUAL) 2 % (2-10); NEUTROPHILS % (MANUAL) 54 % (42-75)
[2017-03-09] MEDS: FAMOTIDINE. 20 MG/2 ML VIAL IV SCH ×2 (08:04→20:39)
[2017-03-09] MEDS: ENOXAPARIN SODIUM 40 MG/0.4 ML DISP.SYRIN SQ SCH (08:05)
--- NOTE | 2017-03-09 08:20 | NUR ---
A call to Lab. to inquire for estimated time of report for LFT's.
[2017-03-09] MEDS ORDERED: HYDROMORPHONE 2 MG/1 ML DISP.SYRIN IV PRN (12:15)
--- NOTE | 2017-03-09 12:37 | NUR ---
Report given to press room supervisor.
[2017-03-09 13:23] LABS: POTASSIUM 3.8 mmol/L (3.5-5.1)
[2017-03-09 13:24] LABS: BILIRUBIN,TOTAL 0.7 mg/dL (0.1-1.0); CREATININE 0.7 mg/dL (0.6-1.3); PHOSPHOROUS 3.3 mg/dL (2.5-4.9)
[2017-03-09 13:25] LABS: MAGNESIUM 1.3 mg/dL (1.8-2.4)
[2017-03-09 13:26] LABS: TOTAL PROTEIN, SERUM 6.5 g/dL (6.4-8.2)
[2017-03-09 14:47] LABS: AMYLASE 39 U/L (25-115); LIPASE 314 U/L (73-393)
--- NOTE | 2017-03-09 15:00 | NUR ---
Dr. Reeves in the unit to examine patient, also informed of preliminary results for LFT"s as they were reported at this time.
[2017-03-09 15:08] LABS: TRIGLYCERIDES 2345 MG/DL (30-150)
--- NOTE | 2017-03-09 20:00 | NUR ---
RECEIVED PT. AWAKE, ALERT & ORIENTED X3 W/ PLEASANT PERSONALITY. STATED MED. FOR GIVEN EARLIER WORKS. IVF D51/2NS W/ 20MEQ KCL @ 100CC/HR ON LFA. ON REGULAR INSULIN DRIP @ 1 UNIT/HR, CHECKING BLOOD SUGAR Q I HR. VOIDED ADEQ. URINE USES URINAL. NOT IN ANY DISTRESS.
--- NOTE | 2017-03-09 22:00 | NUR ---
REPOSITIONED SELF FOR COMFORTS. V/S STABLE.
[2017-03-10] VITALS (12 sets, daily range): BP systolic 112–144; BP diastolic 76–99
[2017-03-10] MEDS: POTASSIUM CHLORIDE 20 MEQ in IV D5 1/2 NS 1000 ML 1,000 ML IV PRN ×2 (00:45→11:04)
[2017-03-10] MEDS: BLOOD SUGAR DIAGNOSTIC 1 EACH STRIP VI SCH ×16 (00:49→15:29)
[2017-03-10] MEDS: HYDROMORPHONE 2 MG/1 ML DISP.SYRIN IV PRN ×7 (01:01→14:10)
[2017-03-10] MEDS: ONDANSETRON 4 MG/2 ML VIAL IV PRN ×4 (05:02→16:21)
--- NOTE | 2017-03-10 05:30 | NUR ---
AM CARE DONE W/ MINIMAL ASSISTANCE. ORAL CARE DONE..
[2017-03-10] MEDS: FAMOTIDINE. 20 MG/2 ML VIAL IV SCH (08:02)
[2017-03-10] MEDS: ENOXAPARIN SODIUM 40 MG/0.4 ML DISP.SYRIN SQ SCH (08:05)
--- NOTE | 2017-03-10 09:00 | NUR ---
07:00 RECIEVED REPORT FROM DAMIAN MCKAY. pT RESTING COMFORTABLY. INSULIN DRIP IS INFUSING AT 1 UNIT/HR AND IVF D51/2NS + 20 mEq KCL AT 100 ML/HR. IV SITE WNL. PERFORMING POCT Q1HR PER PROTOCOL. COMPLETE ASSESSMENT DONE AND DOCUMENTED. V/S STABLE PT IS AFEBRILE, SINUS RHYTHM ON MONITOR, ON 2L NC OXYGEN LUNGS CTA B/L NO RESPIRATORY DISTRESS. 08:00 C/O 6/10 PAIN UPPER ABDOMEN AREA. DILAUDID 2MG IV GIVEN PER ORDER. PT GET IT Q2H PRN. DENIES ANY NAUSEA AT THIS TIME. 08:33 IMPROVEMENT IN PAIN NOTED. PT RESTING/DOZING INTERMITTENTLY. DIET CHANGED TO CLEAR LIQUID. CONTINUE TO MONITOR. Addendum: 03/10/17 at 0935 by PABLO BRIONES RN DIET CHANGED TO FULL LIQUID.
--- NOTE | 2017-03-10 14:18 | NUR ---
NO CHANGE IN PT'S CONDITION. GIVING PAIN MEDICATION Q2H PER PT'S REQUEST FOR ABDOMINAL PAIN 5-12/25. WITH GOOD RESULTS. V/S STABLE AFEBRILE. AT BEDSIDE VISITING PT. DR LANIER DISCHARGING PT HOME. PT CALLED HIS AND SHE WILL BE COMING TO PICK PT UP. WAITING FOR DR. LANIER TO PUT D/C ORDERS IN. PHARMACY INFORMATION TEXT TO AND TALKED TO ADMITTING TO UPDATE PHARMACY INFORMATION FOLLOWS: [facility] [id number] [place] [address] .
--- NOTE | 2017-03-10 15:47 | NUR ---
INSULIN DRIP AND IVF D/C PER ORDER. pT IS TOLERATED BREAKFAST AND LUNCH. DRINKING FLUIDS WITH OUT PROBLEM. RESTING WITH EYES CLLOSED. NO ACUTE DISTRESS. FELLING BETTER.
[2017-03-10] MEDS ORDERED: INSULIN REGULAR, HUMAN 300 UNIT/3 ML VIAL SQ PRN (16:30)
[2017-03-10] MEDS ORDERED: BLOOD SUGAR DIAGNOSTIC 1 EACH STRIP VI SCH (16:30)
[2017-03-10] MEDS ORDERED: INSULIN REGULAR, HUMAN 300 UNITS/3 ML VIAL SQ PRN (16:30)
[2017-03-10] MEDS ORDERED: DEXTROSE 50% 50 ML DISP.SYRIN IV PRN (16:30)
[2017-03-10] MEDS ORDERED: EZET10TA13 PO (17:03)
[2017-03-10] MEDS ORDERED: HYDR-548 PO (17:03)
[2017-03-10] MEDS ORDERED: FAMO-132 PO (17:03)
--- NOTE | 2017-03-10 17:49 | NUR ---
WENT OVER D/C INSTRUCTIONS PACKAGE WITH PT AND . EXPLAINED WHEN TO CALL OR GO TO ER, FOLLOW UP WITH [facility], DISEASE PROCESS, DIET. BOTH VERBALIZED UNDERSTANDING. PHARMACIST SPOKE TO PT ABOUT HIS D/C MEDICATIONS NARCO AND ZETIA. BELONGING LIST CHECKED AND SIGNED BY PT AND MYSELF. IV HEPLOCK D/C'D PRESSURE APPLIED FOR 5 MINUTES AND DSD APPLIED. PT WENT DOWN IN W/C WITH WOODY STINSON. PT LEAVING WITH IN PRIVATE CAR. PT LEFT IN STABLE CONDITION. NO PAIN AND NO N/V.
== END 2017-03-10 17:55 | disposition home or self-care (01) | DRG 423 ==
LOC: ER 01:05 → CCU 05:32 → TELE 14:42 → MED 14:55 → CCU 03-08 17:40
PROVIDERS: ADMIT Nurse Practitioner Acute Care; ATTEND Nurse Practitioner Acute Care
DX: E78.1 Pure hyperglyceridemia (principal); K85.80 Other acute pancreatitis without necrosis or infection; E11.65 Type 2 diabetes mellitus with hyperglycemia; E88.81 Metabolic syndrome and other insulin resistance; K86.1 Other chronic pancreatitis; E66.9 Obesity, unspecified; Z68.36 Body mass index [BMI] 36.0-36.9, adult; Z79.84 Long term (current) use of oral hypoglycemic drugs; Z79.82 Long term (current) use of aspirin; Z83.3 Family history of diabetes mellitus; Z82.49 Family history of ischemic heart disease and other diseases of the circulatory system; G89.29 Other chronic pain; Z87.440 Personal history of urinary (tract) infections; I10 Essential (primary) hypertension; M47.899 Other spondylosis, site unspecified
CPT/HCPCS: 36415; 83690; 83735; 84100; 84478; 85025; 93005; A4663; J1170; J1650; J1815; J2405; J3480; J3490; J7030; J7042

== ENCOUNTER 2017-07-06 12:02 | Inpatient (IN) | payer MEDICAID ==
[~2017-07-06] VITALS: Ht 170.2 cm; Wt 102.1 kg
[~2017-07-06 12:02] MED LIST changes: +ATOR40TA PO; -CEPH-570 PO; +EZET10TA13 PO; +FAMO-132 PO; +FENO145T20 PO; -GEMF600T3 PO; -HYDR-3326 PO; +HYDR-548 PO; -JANUMET PO; -NIAC500T8 PO; +SITA1TAB6 PO
[2017-07-06] MEDS ORDERED: ONDANSETRON IV *ER 4 MG/2 ML VIAL IV ONE ×2 (12:30→14:30)
[2017-07-06] MEDS ORDERED: IV NORMAL SALINE 1000 ML BAG IV ONE ×2 (12:30→14:00)
[2017-07-06] MEDS ORDERED: HYDROMORPHONE 1 MG/1 ML DISP.SYRIN IV ONE ×2 (12:30→14:30)
[2017-07-06] MEDS ORDERED: METF10002 PO (12:34)
[2017-07-06] MEDS ORDERED: LANTUS SQ (12:34)
[2017-07-06] MEDS ORDERED: LOSA50TA21 PO (12:34)
[2017-07-06] MEDS ORDERED: INSU100V8 SQ (12:34)
[2017-07-06] MEDS ORDERED: OMEGA 3 PO (12:34)
[2017-07-06] MEDS ORDERED: GEMF600T3 PO (12:34)
[2017-07-06 12:43] LABS: BASOPHILS # (AUTO) 0.1 K/uL (0.0-8.0); BASOPHILS % (AUTO) 1.2 % (0.0-2.0); EOSINOPHILS # (AUTO) 0.3 K/uL (0.0-0.7); EOSINOPHILS % (AUTO) 2.4 % (0.0-7.0); HEMATOCRIT 40.6 % (36.7-47.1); HEMOGLOBIN 14.5 g/dL (12.5-16.3); LYMPHOCYTES # (AUTO) 2.6 K/uL (20.0-40.0); LYMPHOCYTES % (AUTO) 22.5 % (20.5-51.5); MEAN CORPUSCULAR HEMOGLOBIN 29.4 uug (23.8-33.4); MEAN CORPUSCULAR HGB CONC 36 g/dL (32.5-36.3); MEAN CORPUSCULAR VOLUME 82.4 fL (73.0-96.2); MONOCYTES # (AUTO) 0.6 K/uL (2.0-10.0); MONOCYTES % (AUTO) 5.2 % (0.0-11.0); NEUTROPHILS # (AUTO) 7.9 K/uL (1.8-8.9); NEUTROPHILS % (AUTO) 68.7 % (38.5-71.5); PLATELET COUNT (AUTO) 448 K/uL (152-348); RED BLOOD CELL COUNT(AUTO) 4.92 MIL/uL (4.06-5.63); WHITE BLOOD COUNT (AUTO) 11.4 K/uL (3.6-10.2)
[2017-07-06] MEDS ORDERED: ONDANSETRON 4 MG/2 ML VIAL ONE ×2 (12:54→14:50)
[2017-07-06] MEDS ORDERED: HYDROMORPHONE 4 MG/1 ML DISP.SYRIN ONE ×2 (12:55→14:50)
[2017-07-06 12:58] LABS: CARBON DIOXIDE 22 mmol/L (21-32); CHLORIDE 94 mmol/L (98-107); CREATININE 0.7 mg/dL (0.6-1.3); POTASSIUM 3.6 mmol/L (3.5-5.1); UREA NITROGEN, BLOOD 12 mg/dL (7-18)
[2017-07-06 13:02] LABS: GLUCOSE 302 mg/dL (74-106)
[2017-07-06 13:12] LABS: ALANINE AMINOTRANSFERASE 16 U/L (16-63); ALKALINE PHOSPHATASE 52 U/L (50-136); ASPARTATE AMINOTRANSFERASE 6 U/L (15-37); BILIRUBIN,DIRECT < 0.1 mg/dL (0.0-0.2); BILIRUBIN,TOTAL 0.7 mg/dL (0.2-1.0); TOTAL PROTEIN, SERUM 7.8 g/dL (6.4-8.2)
--- NOTE | 2017-07-06 13:45 | NUR ---
pt admitted to tele for pancreatits, no bed available at thispoint per maintenance supervisor electrical
[2017-07-06] MEDS ORDERED: PANTOPRAZOLE SODIUM 40 MG VIAL IV ONE (14:00)
[2017-07-06] MEDS ORDERED: INSULIN REGULAR, HUMAN 1,000 UNITS/10 ML VIAL IV ONE (14:00)
--- NOTE | 2017-07-06 14:00 | NUR ---
DR BAUTISTA SPOKE WITH DR BYRD WILL ADMIT TO ICU.
--- NOTE | 2017-07-06 14:00 | NUR ---
Pt. admitted to ICU 3, under care of Dr. BYRD Belongs List completed
--- NOTE | 2017-07-06 14:20 | NUR ---
Telephone SBAR report received by ARLETH Penny.
[2017-07-06] MEDS ORDERED: PANTOPRAZOLE SODIUM 40 MG VIAL ONE (14:26)
[2017-07-06] MEDS ORDERED: INSULIN REGULAR, HUMAN 300 UNIT/3 ML VIAL ONE (14:26)
--- NOTE | 2017-07-06 14:40 | NUR ---
PT TRANSFERED TO CCU IN STABLE CONDITION
--- NOTE | 2017-07-06 14:50 | NUR ---
Pt received from ER awake and alert able to walk to bed. Oriented pt to the room and demonstrated proper use of call light. Plan of care discussed. Pt verbalized understanding.
--- NOTE | 2017-07-06 15:30 | NUR ---
Call made to Dr. Reeves regarding pt's new admission and diet orders. Awaiting return call.
[2017-07-06] MEDS ORDERED: HYDROMORPHONE 1 MG/1 ML DISP.SYRIN IV PRN (15:45)
[2017-07-06] MEDS: MORPHINE SULFATE 4 MG/1 ML DISP.SYRIN IV PRN ×3 (15:53→21:51)
[2017-07-06 16:00] VITALS: BP 129/99
[2017-07-06] MEDS ORDERED: METOPROLOL TARTRATE 5 MG/5 ML VIAL IVP PRN (17:00)
[2017-07-06] MEDS ORDERED: diphenhydrAMINE 50 MG/1 ML VIAL IV PRN (17:00)
[2017-07-06] MEDS ORDERED: ACETAMINOPHEN 650 MG SUPP.RECT RC PRN (17:00)
[2017-07-06] MEDS: BLOOD SUGAR DIAGNOSTIC 1 EACH STRIP VI SCH ×7 (17:55→23:54)
[2017-07-06] MEDS: INSULIN REGULAR, HUMAN 100 UNIT in IV NORMAL SALINE 99 ML IV PRN ×2 (18:03)
--- NOTE | 2017-07-06 19:30 | NUR ---
Report received. Patient sleeping easily arouses to name. NAD noted. Was just medicated by am RN. Patient denies pain at this time. Assessment done. On continuous Insulin drip at 1.5 units/H; accuchecks QH.
[2017-07-06 20:00] VITALS: BP 146/89
--- NOTE | 2017-07-06 20:40 | NUR ---
New IV started to LW area with #20 angio cath. Patient cooperative. Orders clarified with Dr. Lopez including pain medication. Morphine increased to 10 mg Q3H; Pharmacist Hui aware.
[2017-07-06 21:00] VITALS: BP 135/95
[2017-07-06] MEDS ORDERED: MORPHINE SULFATE 10 MG/1 ML DISP.SYRIN IV PRN (21:00)
[2017-07-06] MEDS: FAMOTIDINE. 20 MG/2 ML VIAL IV SCH (21:04)
[2017-07-06 22:00] VITALS: BP 128/85
[2017-07-06] MEDS ORDERED: ENALAPRILAT DIHYDRATE INJ 1.25 MG in IV NORMAL SALINE 50 ML IV SCH (22:00)
[2017-07-06] MEDS ORDERED: ENALAPRILAT DIHYDRATE INJ 1.25 MG in IV NORMAL SALINE 50 ML IV PRN (22:00)
[2017-07-06] MEDS: POTASSIUM CHLORIDE 20 MEQ in IV D5 1/2 NS 1000 ML 1,000 ML IV PRN (22:00)
--- NOTE | 2017-07-06 22:00 | NUR ---
IV order clarified with Dr. Lopez. IV to continue as ordered.
[2017-07-06 23:00] VITALS: BP 126/80
[2017-07-07] VITALS (25 sets, daily range): BP systolic 111–166; BP diastolic 35–97
[2017-07-07] MEDS: MORPHINE SULFATE 4 MG/1 ML DISP.SYRIN IV PRN ×8 (00:51→23:01)
--- NOTE | 2017-07-07 00:51 | NUR ---
Medicated with Morphine IV for c/o chest pain. VS stable.
[2017-07-07] MEDS: BLOOD SUGAR DIAGNOSTIC 1 EACH STRIP VI SCH ×23 (01:00→23:07)
[2017-07-07 05:11] LABS: BASOPHILS # (AUTO) 0.1 K/uL (0.0-8.0); BASOPHILS % (AUTO) 0.7 % (0.0-2.0); EOSINOPHILS # (AUTO) 0.4 K/uL (0.0-0.7); EOSINOPHILS % (AUTO) 4.3 % (0.0-7.0); HEMATOCRIT 36.7 % (36.7-47.1); HEMOGLOBIN 12.8 g/dL (12.5-16.3); LYMPHOCYTES # (AUTO) 2.7 K/uL (20.0-40.0); LYMPHOCYTES % (AUTO) 28.2 % (20.5-51.5); MEAN CORPUSCULAR HEMOGLOBIN 29.3 uug (23.8-33.4); MEAN CORPUSCULAR HGB CONC 35 g/dL (32.5-36.3); MEAN CORPUSCULAR VOLUME 83.9 fL (73.0-96.2); MONOCYTES # (AUTO) 0.7 K/uL (2.0-10.0); MONOCYTES % (AUTO) 7.2 % (0.0-11.0); NEUTROPHILS # (AUTO) 5.8 K/uL (1.8-8.9); NEUTROPHILS % (AUTO) 59.6 % (38.5-71.5); PLATELET COUNT (AUTO) 354 K/uL (152-348); RED BLOOD CELL COUNT(AUTO) 4.38 MIL/uL (4.06-5.63); WHITE BLOOD COUNT (AUTO) 9.7 K/uL (3.6-10.2)
[2017-07-07 05:29] LABS: BILIRUBIN,TOTAL 0.7 mg/dL (0.2-1.0); CREATININE 0.9 mg/dL (0.6-1.3); MAGNESIUM 1.3 mg/dL (1.8-2.4); POTASSIUM 3.4 mmol/L (3.5-5.1); TOTAL PROTEIN, SERUM 7.1 g/dL (6.4-8.2)
--- NOTE | 2017-07-07 05:45 | NUR ---
Am care rendered. Assisted up in chair; gait steady but c/o nausea. Medicated with Zofran IV.
[2017-07-07] MEDS: ONDANSETRON 4 MG/2 ML VIAL IV PRN ×3 (05:49→20:09)
--- NOTE | 2017-07-07 06:36 | NUR ---
Patient c/o chest pain and requesting pain medication. Overrode Morphine 10 mg syringe; no Morphine 4 mg available. Unable to scan Morphine syringe.
[2017-07-07] MEDS ORDERED: MORPHINE SULFATE 10 MG/1 ML DISP.SYRIN ONE (06:52)
--- NOTE | 2017-07-07 07:30 | NUR ---
PT ON CONTINOUS INSULIN DRIP AT1.5 ML/HR CONSTANT DRIP WITHOUT A COVERAGE. AWAKE AND ORIENTEDX3. PT STATED C/O OF CHEST PRESSURE LEVEL 9. MEDICATED WITH MORPPHINE 10MG SLOW IVP. MAIN IV LINE IS D5 1/2 NS WITH 20MEQ KCL AT 80ML/HR. SITE IS INTACT.
[2017-07-07] MEDS: FAMOTIDINE. 20 MG/2 ML VIAL IV SCH ×2 (08:49→20:09)
--- NOTE | 2017-07-07 09:00 | NUR ---
ACCU CHECK Q 1HR WITHOUT COVERAGE. SLEEPING ON AND OFF.
[2017-07-07] MEDS ORDERED: POTASSIUM CHLORIDE 20 MEQ TAB.PRT.SR PO ONE (10:45)
[2017-07-07] MEDS: MAGNESIUM SULFATE/D5W 100 ML IV SCH ×2 (10:53→11:55)
[2017-07-07] MEDS: ASPIRIN EC 81 MG TABLET.DR PO SCH (10:54)
[2017-07-07] MEDS: POTASSIUM CHLORIDE 20 MEQ in IV D5 1/2 NS 1000 ML 1,000 ML IV PRN ×2 (10:54→22:58)
[2017-07-07] MEDS ORDERED: INFLUENZA VACCINE 2017-2018 0.5 ML DISP.SYRIN IM ONE (16:30)
--- NOTE | 2017-07-07 16:30 | NUR ---
SEEN AND EXAMINED BY DR BYRD WITH NEW ORDERS. PT TOLERATED HIS CLEAR LIQUIDS WELL.
[2017-07-07] MEDS: INSULIN REGULAR, HUMAN 100 UNIT in IV NORMAL SALINE 99 ML IV PRN ×2 (18:02)
--- NOTE | 2017-07-07 20:00 | NUR ---
Awake, alert. Expressing desire to be home by Kalpana. Remains on Insulin drip at 1.5 units/hr with hourly accucheks (No titration). Please see IV spreadsheet for glucose trends. Resp. easy and regular. Morphine IV for c/o pain at abdomen/chest, with adequate relief. Nursing comfort measures observed at all times. Please see CCU flowsheet for full assessment and clinical data.
[2017-07-08] VITALS (16 sets, daily range): BP systolic 106–134; BP diastolic 67–90
[2017-07-08] MEDS: BLOOD SUGAR DIAGNOSTIC 1 EACH STRIP VI SCH ×11 (00:02→16:44)
[2017-07-08] MEDS: MORPHINE SULFATE 4 MG/1 ML DISP.SYRIN IV PRN ×4 (02:06→11:26)
--- NOTE | 2017-07-08 04:00 | NUR ---
Sleeps at very short intervals. Remains on Insulin drip at same rate; hourly blood glucose trends stable. Pt also gets Morphine 10 mg IV dose about q 3hr for c/o mid-abdominal pain radiating to chest. In no apparent acute distress.
[2017-07-08 05:23] LABS: BASOPHILS # (AUTO) 0.1 K/uL (0.0-8.0); BASOPHILS % (AUTO) 0.8 % (0.0-2.0); EOSINOPHILS # (AUTO) 0.3 K/uL (0.0-0.7); EOSINOPHILS % (AUTO) 4.2 % (0.0-7.0); HEMATOCRIT 34.8 % (36.7-47.1); LYMPHOCYTES # (AUTO) 2.2 K/uL (20.0-40.0); LYMPHOCYTES % (AUTO) 30.4 % (20.5-51.5); MEAN CORPUSCULAR HEMOGLOBIN 29.1 uug (23.8-33.4); MEAN CORPUSCULAR HGB CONC 34 g/dL (32.5-36.3); MEAN CORPUSCULAR VOLUME 84.9 fL (73.0-96.2); MONOCYTES # (AUTO) 0.6 K/uL (2.0-10.0); MONOCYTES % (AUTO) 7.7 % (0.0-11.0); NEUTROPHILS # (AUTO) 4.2 K/uL (1.8-8.9); NEUTROPHILS % (AUTO) 56.9 % (38.5-71.5); PLATELET COUNT (AUTO) 356 K/uL (152-348); WHITE BLOOD COUNT (AUTO) 7.4 K/uL (3.6-10.2)
[2017-07-08 05:35] LABS: CREATININE 0.9 mg/dL (0.6-1.3); MAGNESIUM 1.7 mg/dL (1.8-2.4); PHOSPHOROUS 2.8 mg/dL (2.5-4.9); POTASSIUM 3.5 mmol/L (3.5-5.1)
--- NOTE | 2017-07-08 07:30 | NUR ---
Pt. A/A/O WATCHING TV, NO S/S OF DISTRESS.
[2017-07-08] MEDS: ASPIRIN EC 81 MG TABLET.DR PO SCH (08:06)
[2017-07-08] MEDS: FAMOTIDINE. 20 MG/2 ML VIAL IV SCH (08:06)
[2017-07-08] MEDS: ONDANSETRON 4 MG/2 ML VIAL IV PRN (08:10)
[2017-07-08] MEDS ORDERED: DEXTROSE 50% 50 ML DISP.SYRIN IV PRN (08:45)
[2017-07-08] MEDS ORDERED: METFORMIN HCL 500 MG TABLET PO SCH (08:45)
[2017-07-08] MEDS ORDERED: INSULIN REGULAR, HUMAN 300 UNITS/3 ML VIAL SQ PRN (08:45)
[2017-07-08] MEDS ORDERED: LOSARTAN POTASSIUM 25 MG TABLET PO SCH (09:00)
[2017-07-08] MEDS ORDERED: OMEGA-3 FATTY ACIDS/FISH OIL CAPSULE PO SCH (09:00)
[2017-07-08] MEDS ORDERED: FENOFIBRATE NANOCRYSTALLIZED 145 MG TABLET PO SCH (09:00)
[2017-07-08] MEDS ORDERED: MAGNESIUM OXIDE 400 MG TABLET PO ONE (09:00)
--- NOTE | 2017-07-08 11:30 | NUR ---
PT.SLEEPING,NO S/S OF DISTRESS.
[2017-07-08] MEDS: INSULIN REGULAR, HUMAN 300 UNIT/3 ML VIAL SQ PRN ×2 (11:34→16:46)
--- NOTE | 2017-07-08 16:25 | NUR ---
Pt.was seen by .
[2017-07-08] MEDS ORDERED: HYDR-548 PO (16:33)
--- NOTE | 2017-07-08 16:55 | NUR ---
PT.WAS D/C HOME,D/C INSTRUCTION AND Rx GIVEN,WAS CARD STRIPPER BY MOM.
[2017-07-08] MEDS ORDERED: FAMOTIDINE 20 MG TABLET PO SCH (21:00)
[2017-07-08] MEDS ORDERED: ATORVASTATIN 40 MG TABLET PO SCH (21:00)
[2017-07-08] MEDS ORDERED: EZETIMIBE 10 MG TABLET PO SCH (21:00)
[2017-07-09] MEDS ORDERED: FENOFIBRATE NANOCRYSTALLIZED 145 MG TABLET PO SCH (09:00)
== END 2017-07-08 16:58 | disposition home or self-care (01) | DRG 423 ==
LOC: ER 12:02 → CCU 14:31
PROVIDERS: ADMIT Internal Medicine; ATTEND Internal Medicine
DX: E78.1 Pure hyperglyceridemia (principal); K85.80 Other acute pancreatitis without necrosis or infection; E88.81 Metabolic syndrome and other insulin resistance; E11.65 Type 2 diabetes mellitus with hyperglycemia; K86.1 Other chronic pancreatitis; Z79.4 Long term (current) use of insulin; G89.29 Other chronic pain; M54.5 Low back pain; Z82.49 Family history of ischemic heart disease and other diseases of the circulatory system; Z83.3 Family history of diabetes mellitus; E66.9 Obesity, unspecified; Z68.35 Body mass index [BMI] 35.0-35.9, adult; Z71.3 Dietary counseling and surveillance; Z87.440 Personal history of urinary (tract) infections; E78.5 Hyperlipidemia, unspecified; Z79.82 Long term (current) use of aspirin; Z79.899 Other long term (current) drug therapy; K21.9 Gastro-esophageal reflux disease without esophagitis; I10 Essential (primary) hypertension
CPT/HCPCS: 36415; 70030-TC; 71010; 83605; 83690; 83735; 84100; 84478; 85025; 85730; 87040; 90686; 93005; A4663; C9113; J1170; J1815; J2270; J2405; J3475; J3480; J3490; J7030

== ENCOUNTER 2017-10-05 21:38 | Inpatient (IN) | payer MEDICAID ==
[~2017-10-05] VITALS: Ht 170.2 cm; Wt 117.9 kg
[~2017-10-05 21:38] MED LIST changes: -ATOR40TA PO; -FAMO-132 PO; -FENO145T20 PO; +FENO145T37 PO; +GEMF600T3 PO; -GLIM4TAB3 PO; +INSU100V8 SQ; +LANTUS SQ; +LOSA50TA21 PO; +METF10004 PO; +OMEGA 3 PO; -SITA1TAB6 PO
[2017-10-05] MEDS ORDERED: ASPIRIN 325 MG TABLET PO ONE (22:00)
[2017-10-05 22:12] LABS: BASOPHILS # (AUTO) 0.1 K/uL (0.0-8.0); BASOPHILS % (AUTO) 1.1 % (0.0-2.0); EOSINOPHILS # (AUTO) 0.3 K/uL (0.0-0.7); EOSINOPHILS % (AUTO) 3.6 % (0.0-7.0); HEMATOCRIT 38.9 % (36.7-47.1); HEMOGLOBIN 13.8 g/dL (12.5-16.3); LYMPHOCYTES # (AUTO) 4.7 K/uL (20.0-40.0); LYMPHOCYTES % (AUTO) 49.2 % (20.5-51.5); MEAN CORPUSCULAR HEMOGLOBIN 29.6 uug (23.8-33.4); MEAN CORPUSCULAR HGB CONC 35 g/dL (32.5-36.3); MEAN CORPUSCULAR VOLUME 83.6 fL (73.0-96.2); MONOCYTES # (AUTO) 0.5 K/uL (2.0-10.0); MONOCYTES % (AUTO) 5.4 % (0.0-11.0); NEUTROPHILS # (AUTO) 3.9 K/uL (1.8-8.9); NEUTROPHILS % (AUTO) 40.7 % (38.5-71.5); PLATELET COUNT (AUTO) 347 K/uL (152-348); RED BLOOD CELL COUNT(AUTO) 4.65 MIL/uL (4.06-5.63); WHITE BLOOD COUNT (AUTO) 9.5 K/uL (3.6-10.2)
--- NOTE | 2017-10-05 22:20 | NUR ---
Pt c/o CP, pressure, 02/24, today, had intermittant CP yesterday w/some nausea. Pt denies SOB, dizziness, n/v, no other complaints, no distress noted. Pt placed on monitor, EKG -- given to MD, IV 20g right hand, Blood drawn and given to kiln labourer.
[2017-10-05] MEDS ORDERED: HYDROMORPHONE 4 MG/1 ML DISP.SYRIN ONE (22:30)
[2017-10-05] MEDS ORDERED: ONDANSETRON 4 MG/2 ML VIAL ONE (22:30)
[2017-10-05] MEDS ORDERED: HYDROMORPHONE 1 MG/1 ML DISP.SYRIN IV ONE (22:30)
[2017-10-05] MEDS ORDERED: ASPIRIN 81 MG TAB.CHEW PO ONE (22:30)
[2017-10-05] MEDS ORDERED: ONDANSETRON IV *ER 4 MG/2 ML VIAL IV ONE (22:30)
[2017-10-05] MEDS ORDERED: ASPIRIN 81 MG TAB.CHEW ONE (22:30)
[2017-10-05 22:35] LABS: CARBON DIOXIDE 24 mmol/L (21-32); CHLORIDE 100 mmol/L (98-107); CREATININE 0.9 mg/dL (0.6-1.3); GLUCOSE 160 mg/dL (74-106); POTASSIUM 3.6 mmol/L (3.5-5.1); UREA NITROGEN, BLOOD 18 mg/dL (7-18)
[2017-10-05 22:46] LABS: ALANINE AMINOTRANSFERASE 35 U/L (16-63); ALKALINE PHOSPHATASE 37 U/L (50-136); BILIRUBIN,DIRECT < 0.1 mg/dL (0.0-0.2); BILIRUBIN,TOTAL 0.1 mg/dL (0.2-1.0); TOTAL PROTEIN, SERUM 7.3 g/dL (6.4-8.2)
[2017-10-05] MEDS ORDERED: INSU100I26 SQ (23:19)
[2017-10-05] MEDS ORDERED: INSU100C SUBCUT (23:19)
[2017-10-05 23:20] LABS: ASPARTATE AMINOTRANSFERASE 18 U/L (15-37)
[2017-10-06] MEDS ORDERED: HYDROMORPHONE 1 MG/1 ML DISP.SYRIN IV ONE
[2017-10-06] MEDS ORDERED: HYDROMORPHONE 4 MG/1 ML DISP.SYRIN ONE ×2 (00:12→06:30)
--- NOTE | 2017-10-06 00:33 | NUR ---
Called report to Tracy.
[2017-10-06 01:00] VITALS: BP 141/100
--- NOTE | 2017-10-06 01:00 | NUR ---
REPORT RECEIVED FROM GRACIA IN ED. PT RECEIVED FROM ED VIA WHEELCHAIR. ORIENTED TO ROOM. A/OX4. ABLE TO MAKE NEEDS KNOWN. V/S STABLE. IN NO ACUTE DISTRESS. PT C/O CHEST PAIN AND ABDOMINAL PRESSURE 5/10 AT THIS TIME. 93 SINUS RHYTHM ON THE TELE MONITOR. IV INTACT AND PATENT. ON RA, TOLERATING WELL. AFEBRILE. SAFETY MEASURES IMPLEMENTED. CALL LIGHT WITHIN REACH.
[2017-10-06] MEDS ORDERED: Z GUARD REMEDY PASTE 57 GM TUBE TOP PRN (01:15)
[2017-10-06] MEDS ORDERED: DEXTROSE 50% 50 ML DISP.SYRIN IV PRN (01:15)
[2017-10-06] MEDS ORDERED: HYDROCODONE/APAP 5-325MG TABLET PO PRN (01:15)
[2017-10-06] MEDS ORDERED: INSULIN REGULAR, HUMAN 300 UNITS/3 ML VIAL SQ PRN (01:15)
[2017-10-06] MEDS ORDERED: MAGNESIUM HYDROXIDE 30 ML LIQUID UDC PO PRN (01:15)
[2017-10-06] MEDS ORDERED: ACETAMINOPHEN 325 MG TABLET PO PRN (01:15)
[2017-10-06] MEDS ORDERED: LORAZEPAM 2 MG/1 ML VIAL IV PRN (01:45)
[2017-10-06] MEDS ORDERED: NITROGLYCERIN 0.4 MG/TAB BOTTLE SL PRN (01:45)
[2017-10-06] MEDS: IV LACTATED RINGERS SOLUTION 1,000 ML IV PRN ×3 (02:06→21:46)
[2017-10-06] MEDS: TEMAZEPAM 15 MG CAPSULE PO PRN ×2 (02:06→21:19)
[2017-10-06] MEDS ORDERED: HYDROMORPHONE 2 MG/1 ML DISP.SYRIN ONE (02:24)
[2017-10-06] MEDS: HYDROMORPHONE 1 MG/1 ML DISP.SYRIN IV PRN ×2 (02:27→06:30)
[2017-10-06 04:00] VITALS: BP 131/93
--- NOTE | 2017-10-06 05:50 | NUR ---
END OF SHIFT NOTES. PT SLEPT INTERMITTENTLY THROUGHOUT SHIFT. INSOMNIA CONT. CHEST PAIN MANAGED. IVF INFUSING. TOLERATED RA, WELL. SINUS RHYTHM ON THE TELE MONITOR. ALL NEEDS ATTENDED. SAFETY MAINTAINED. CALL LIGHT WITHIN REACH.
[2017-10-06] MEDS: BLOOD SUGAR DIAGNOSTIC 1 EACH STRIP VI SCH ×4 (06:24→21:11)
[2017-10-06 06:31] LABS: BILIRUBIN,TOTAL 0.2 mg/dL (0.2-1.0); CREATININE 0.9 mg/dL (0.6-1.3); MAGNESIUM 1.3 mg/dL (1.8-2.4); PHOSPHOROUS 4.4 mg/dL (2.5-4.9); TOTAL PROTEIN, SERUM 7.2 g/dL (6.4-8.2)
--- NOTE | 2017-10-06 07:25 | NUR ---
Received report from night shift supervisor nurse, patient in bed asleep, no evidence of distress noted, bed in low position, side rails up x2.
[2017-10-06] MEDS: PANTOPRAZOLE SODIUM 40 MG VIAL IV SCH (08:15)
[2017-10-06] MEDS: LOSARTAN POTASSIUM 50 MG TABLET PO SCH (08:18)
[2017-10-06] MEDS: METFORMIN HCL 500 MG TABLET PO SCH ×2 (08:18→17:04)
[2017-10-06] MEDS: ASPIRIN 81 MG TAB.CHEW PO SCH (08:18)
[2017-10-06] MEDS: INSULIN REGULAR, HUMAN 300 UNIT/3 ML VIAL SQ PRN ×2 (08:20→17:02)
[2017-10-06] MEDS ORDERED: MORPHINE SULFATE 4 MG/1 ML DISP.SYRIN IV PRN (10:30)
--- NOTE | 2017-10-06 10:30 | NUR ---
Patient is not receiving any pain relief from morphine, contacted DISPATCH OFFICER for review of medications and possible oral Dilauded.
[2017-10-06] MEDS ORDERED: DOCUSATE SODIUM 100 MG CAPSULE PO PRN (10:45)
[2017-10-06] MEDS ORDERED: MORPHINE SULFATE 2 MG/1 ML DISP.SYRIN IV ONE (11:30)
[2017-10-06 11:49] VITALS: BP 126/82
[2017-10-06] MEDS: ONDANSETRON 4 MG/2 ML VIAL IV PRN (14:14)
[2017-10-06] MEDS: MAGNESIUM SULFATE/D5W 100 ML IV SCH ×4 (15:43→21:07)
[2017-10-06] MEDS: MORPHINE SULFATE 4 MG/1 ML DISP.SYRIN IV PRN ×2 (15:44→20:46)
[2017-10-06 15:49] VITALS: BP 137/89
--- NOTE | 2017-10-06 19:04 | NUR ---
PATIENT HAS REPORTED SEVERE PAIN THROUGHOUT THE DAY. ELECTROCARDIOGRAPH REPAIRER NOTIFIED, AND PAIN MEDICATION ADJUSTED. PATIENT IS IN BED, AWAKE NO EVIDENCE OF DISTRESS AT THIS TIME, BED IN LOW POSITION, SIDE RAILS UP X2.
--- NOTE | 2017-10-06 19:40 | NUR ---
PT RECEIVED IN BED, AWAKE. A/OX4. ABLE TO MAKE NEEDS KNOWN. V/S STABLE. IN NO ACUTE DISTRESS. PT C/O CHEST PAIN 02/24. IVF INFUSING. ON RA, TOLERATING WELL. HOB ELEVATED. SAFETY MEASURES IMPLEMENTED. CALL LIGHT WITHIN REACH.
[2017-10-06 20:00] VITALS: BP 129/96
[2017-10-06] MEDS ORDERED: INSULIN GLARGINE,HUM 300 UNITS/3 ML CARTRIDGE SQ SCH (21:00)
[2017-10-06] MEDS ORDERED: FENOFIBRATE NANOCRYSTALLIZED 145 MG TABLET PO SCH (21:00)
[2017-10-06] MEDS ORDERED: EZETIMIBE 10 MG TABLET PO SCH (21:00)
[2017-10-06] MEDS ORDERED: MAGNESIUM OXIDE 400 MG TABLET PO ONE (22:00)
[2017-10-07] MEDS: MORPHINE SULFATE 4 MG/1 ML DISP.SYRIN IV PRN ×3 (00:28→08:04)
[2017-10-07 04:00] VITALS: BP 116/84
--- NOTE | 2017-10-07 05:35 | NUR ---
END OF SHIFT NOTES. PT SLEPT INTERMITTENTLY THROUGHOUT SHIFT. IN STABLE CONDITION. BLOOD GLUCOSE CONTROLLED. IVF INFUSING. TOLERATED RA, WELL. AFEBRILE. CHEST PAIN MANAGED THROUGHOUT SHIFT. ALL NEEDS ATTENDED. SAFETY MAINTAINED. CALL LIGHT WITHIN REACH.
[2017-10-07] MEDS: IV LACTATED RINGERS SOLUTION 1,000 ML IV PRN (06:47)
[2017-10-07] MEDS: BLOOD SUGAR DIAGNOSTIC 1 EACH STRIP VI SCH ×2 (06:48→11:30)
[2017-10-07 06:56] LABS: CREATININE 0.9 mg/dL (0.6-1.3); MAGNESIUM 1.7 mg/dL (1.8-2.4); PHOSPHOROUS 3.9 mg/dL (2.5-4.9)
[2017-10-07 07:02] LABS: BASOPHILS # (AUTO) 0.1 K/uL (0.0-8.0); EOSINOPHILS # (AUTO) 0.3 K/uL (0.0-0.7); EOSINOPHILS % (AUTO) 4.6 % (0.0-7.0); HEMATOCRIT 40.2 % (36.7-47.1); HEMOGLOBIN 13.7 g/dL (12.5-16.3); LYMPHOCYTES # (AUTO) 3.6 K/uL (20.0-40.0); LYMPHOCYTES % (AUTO) 47.3 % (20.5-51.5); MEAN CORPUSCULAR HEMOGLOBIN 28.9 uug (23.8-33.4); MEAN CORPUSCULAR HGB CONC 34 g/dL (32.5-36.3); MEAN CORPUSCULAR VOLUME 84.9 fL (73.0-96.2); MONOCYTES # (AUTO) 0.4 K/uL (2.0-10.0); NEUTROPHILS # (AUTO) 3.1 K/uL (1.8-8.9); NEUTROPHILS % (AUTO) 41.1 % (38.5-71.5); PLATELET COUNT (AUTO) 288 K/uL (152-348); RED BLOOD CELL COUNT(AUTO) 4.74 MIL/uL (4.06-5.63); WHITE BLOOD COUNT (AUTO) 7.5 K/uL (3.6-10.2)
--- NOTE | 2017-10-07 07:10 | NUR ---
RECEIVED REPORT FROM MATERIAL MAN NURSE, PATIENT IN BED AWAKE, REPORTING THAT HE IS DUE FOR HIS PAIN MEDICATION SOON. BED IN LOW POSITION, SIDE RAILS UP X2.
[2017-10-07] MEDS: PANTOPRAZOLE SODIUM 40 MG VIAL IV SCH (08:03)
[2017-10-07] MEDS: ASPIRIN 81 MG TAB.CHEW PO SCH (08:03)
[2017-10-07] MEDS: LOSARTAN POTASSIUM 50 MG TABLET PO SCH (08:03)
[2017-10-07] MEDS: METFORMIN HCL 500 MG TABLET PO SCH (08:03)
[2017-10-07] MEDS: ONDANSETRON 4 MG/2 ML VIAL IV PRN (08:13)
[2017-10-07 11:44] VITALS: BP 121/82
[2017-10-07] MEDS ORDERED: GEMF600T3 PO (12:08)
[2017-10-07] MEDS: INSULIN REGULAR, HUMAN 300 UNIT/3 ML VIAL SQ PRN (12:46)
--- NOTE | 2017-10-07 13:50 | NUR ---
Patient was discharged after education given and iv removed.
[2017-10-07] MEDS ORDERED: MAGNESIUM OXIDE 400 MG TABLET PO ONE (14:00)
[2017-10-19] MEDS ORDERED: HYDR-548 PO (20:15)
== END 2017-10-07 14:00 | disposition home or self-care (01) | DRG 282 ==
LOC: ER 21:39 → TELE 23:44 → MED 10-06 17:05
PROVIDERS: ADMIT Hospitalist; ATTEND Hospitalist
DX: K86.1 Other chronic pancreatitis (principal); E11.65 Type 2 diabetes mellitus with hyperglycemia; I10 Essential (primary) hypertension; E78.1 Pure hyperglyceridemia; E83.42 Hypomagnesemia; Z68.41 Body mass index [BMI] 40.0-44.9, adult; I25.10 Atherosclerotic heart disease of native coronary artery without angina pectoris; E11.9 Type 2 diabetes mellitus without complications; I44.4 Left anterior fascicular block; Z79.4 Long term (current) use of insulin; E66.9 Obesity, unspecified; F41.9 Anxiety disorder, unspecified; R07.89 Other chest pain; Z82.49 Family history of ischemic heart disease and other diseases of the circulatory system; Z83.3 Family history of diabetes mellitus; E78.5 Hyperlipidemia, unspecified
CPT/HCPCS: 36415; 70030-TC; 71045; 83690; 83735; 84100; 85025; 85730; 93005; A4663; C9113; J1170; J1815; J2270; J2405; J3475; J7120

== ENCOUNTER 2017-10-18 18:05 | Inpatient (IN) | payer MEDICAID ==
[~2017-10-18] VITALS: Ht 170.2 cm; Wt 115.7 kg
[~2017-10-18 18:05] MED LIST changes: -GEMF600T3 PO; -HYDR-548 PO; +INSU100C SUBCUT; +INSU100I26 SQ; -INSU100V8 SQ; -LANTUS SQ
[2017-10-18] MEDS ORDERED: KETAMINE HCL 500 MG/10 ML INJ IV ONE (19:30)
[2017-10-18 19:35] LABS: BASOPHILS # (AUTO) 0.1 K/uL (0.0-8.0); EOSINOPHILS # (AUTO) 0.4 K/uL (0.0-0.7); HEMATOCRIT 45.5 % (36.7-47.1); HEMOGLOBIN 15.6 g/dL (12.5-16.3); MEAN CORPUSCULAR HEMOGLOBIN 29.3 uug (23.8-33.4); MEAN CORPUSCULAR HGB CONC 34 g/dL (32.5-36.3); MEAN CORPUSCULAR VOLUME 85.6 fL (73.0-96.2); RED BLOOD CELL COUNT(AUTO) 5.32 MIL/uL (4.06-5.63)
[2017-10-18] MEDS ORDERED: ONDANSETRON 4 MG/2 ML VIAL ONE ×2 (19:40→21:54)
[2017-10-18] MEDS ORDERED: KETAMINE HCL 500 MG/10 ML INJ ONE (19:40)
[2017-10-18] MEDS ORDERED: LORAZEPAM 2 MG/1 ML VIAL ONE ×3 (19:51→21:55)
[2017-10-18 20:00] LABS: PLATELET COUNT (AUTO) 427 K/uL (152-348)
[2017-10-18] MEDS ORDERED: LORAZEPAM 2 MG/1 ML VIAL IV ONE ×2 (20:00→20:15)
[2017-10-18 20:01] LABS: BASOPHILS % (AUTO) 1.3 % (0.0-2.0); EOSINOPHILS % (AUTO) 4.4 % (0.0-7.0); LYMPHOCYTES % (AUTO) 40.6 % (20.5-51.5); MONOCYTES % (AUTO) 5.9 % (0.0-11.0); NEUTROPHILS % (AUTO) 47.8 % (38.5-71.5)
[2017-10-18 20:02] LABS: LYMPHOCYTES # (AUTO) 3.3 K/uL (20.0-40.0); MONOCYTES # (AUTO) 0.5 K/uL (2.0-10.0); NEUTROPHILS # (AUTO) 3.9 K/uL (1.8-8.9)
[2017-10-18 20:04] LABS: WHITE BLOOD COUNT (AUTO) 8.3 K/uL (3.6-10.2)
[2017-10-18 20:46] LABS: NEUTROPHILS % (MANUAL) 45 % (42-75)
[2017-10-18 20:47] LABS: BAND % (MANUAL) 4 % (0-10); EOSINOPHILS % (MANUAL) 6 % (0-8); LYMPHOCYTES % (MANUAL) 38 % (20-40); MONOCYTES % (MANUAL) 7 % (2-10)
[2017-10-18 21:17] LABS: POTASSIUM 3.7 mmol/L (3.5-5.1)
[2017-10-18 21:19] LABS: BILIRUBIN,DIRECT 0.1 mg/dL (0.0-0.2); BILIRUBIN,TOTAL 0.4 mg/dL (0.1-1.0)
[2017-10-18 21:20] LABS: TOTAL PROTEIN, SERUM 7.9 g/dL (6.4-8.2)
[2017-10-18] MEDS ORDERED: IOHEXOL 350 100 ML INFUS..BTL ONE (21:42)
[2017-10-18] MEDS ORDERED: NORMAL SALINE FLUSH 10 ML DISP.SYRIN ONE (21:42)
[2017-10-18] MEDS ORDERED: IV NORMAL SALINE 100 ML ONE (21:42)
[2017-10-18] MEDS ORDERED: ONDANSETRON IV *ER 4 MG/2 ML VIAL IV ONE (21:45)
[2017-10-18] MEDS ORDERED: MORPHINE SULFATE 4 MG/1 ML DISP.SYRIN IV ONE (21:45)
[2017-10-18] MEDS ORDERED: IV NORMAL SALINE 1000 ML BAG IV ONE (21:45)
[2017-10-18] MEDS ORDERED: MORPHINE SULFATE 4 MG/1 ML DISP.SYRIN ONE (21:54)
[2017-10-19] MEDS ORDERED: INSULIN REGULAR, HUMAN 300 UNITS/3 ML VIAL SQ PRN (00:45)
[2017-10-19] MEDS ORDERED: ONDANSETRON 4 MG/2 ML VIAL IV PRN (00:45)
[2017-10-19] MEDS ORDERED: HYDROCODONE/APAP 5-325MG TABLET PO PRN (00:45)
[2017-10-19] MEDS ORDERED: DEXTROSE 50% 50 ML DISP.SYRIN IV PRN (00:45)
[2017-10-19] MEDS ORDERED: ACETAMINOPHEN 325 MG TABLET PO PRN ×2 (00:45→02:37)
[2017-10-19] MEDS ORDERED: Z GUARD REMEDY PASTE 57 GM TUBE TOP PRN (00:45)
[2017-10-19] MEDS ORDERED: MAGNESIUM HYDROXIDE 30 ML LIQUID UDC PO PRN (00:45)
[2017-10-19 03:10] VITALS: BP 138/98
[2017-10-19] MEDS ORDERED: MORPHINE SULFATE 2 MG/1 ML DISP.SYRIN IM PRN (03:45)
[2017-10-19] MEDS: IV NS 1000 ML 1,000 ML IV PRN ×2 (03:58→11:41)
[2017-10-19] MEDS: MORPHINE SULFATE 2 MG/1 ML DISP.SYRIN IVP PRN ×4 (03:59→19:50)
[2017-10-19] MEDS: BLOOD SUGAR DIAGNOSTIC 1 EACH STRIP VI SCH ×4 (06:34→19:53)
[2017-10-19] MEDS ORDERED: PANTOPRAZOLE SODIUM 40 MG VIAL IV SCH (09:00)
[2017-10-19 11:13] VITALS: BP 119/71
[2017-10-19] MEDS: INSULIN REGULAR, HUMAN 300 UNIT/3 ML VIAL SQ PRN ×2 (12:04→17:37)
[2017-10-19] MEDS ORDERED: ASPIRIN EC 81 MG TABLET.DR PO SCH (14:00)
[2017-10-19] MEDS ORDERED: LOSARTAN POTASSIUM 50 MG TABLET PO SCH (14:00)
[2017-10-19 14:28] LABS: BASOPHILS # (AUTO) 0.1 K/uL (0.0-8.0); EOSINOPHILS # (AUTO) 0.3 K/uL (0.0-0.7); EOSINOPHILS % (AUTO) 4.2 % (0.0-7.0); HEMATOCRIT 40.7 % (36.7-47.1); LYMPHOCYTES # (AUTO) 3.3 K/uL (20.0-40.0); LYMPHOCYTES % (AUTO) 44.7 % (20.5-51.5); MEAN CORPUSCULAR HEMOGLOBIN 30.1 uug (23.8-33.4); MEAN CORPUSCULAR HGB CONC 36 g/dL (32.5-36.3); MEAN CORPUSCULAR VOLUME 83.5 fL (73.0-96.2); MONOCYTES # (AUTO) 0.4 K/uL (2.0-10.0); MONOCYTES % (AUTO) 5.6 % (0.0-11.0); NEUTROPHILS # (AUTO) 3.3 K/uL (1.8-8.9); NEUTROPHILS % (AUTO) 44.5 % (38.5-71.5); PLATELET COUNT (AUTO) 394 K/uL (152-348); RED BLOOD CELL COUNT(AUTO) 4.88 MIL/uL (4.06-5.63); WHITE BLOOD COUNT (AUTO) 7.4 K/uL (3.6-10.2)
[2017-10-19 14:43] LABS: HEMOGLOBIN 14.7 g/dL (12.5-16.3)
[2017-10-19 14:59] LABS: POTASSIUM 4.2 mmol/L (3.5-5.1)
[2017-10-19 15:13] LABS: BILIRUBIN,TOTAL 0.2 mg/dL (0.2-1.0); MAGNESIUM 1.5 mg/dL (1.8-2.4); PHOSPHOROUS 3.2 mg/dL (2.5-4.9); TOTAL PROTEIN, SERUM 7.6 g/dL (6.4-8.2)
[2017-10-19 15:18] VITALS: BP 138/95
[2017-10-19] MEDS ORDERED: Medication Not On Formulary EA (Metformin Hcl 1,000 MG) PO SCH (16:30)
[2017-10-19] MEDS ORDERED: METFORMIN HCL 500 MG TABLET PO SCH (18:00)
[2017-10-19] MEDS ORDERED: HYDR-548 PO (20:15)
[2017-10-19] MEDS ORDERED: EZETIMIBE 10 MG TABLET PO SCH (21:00)
[2017-10-19] MEDS ORDERED: INSULIN GLARGINE,HUM 300 UNITS/3 ML CARTRIDGE SQ SCH (21:00)
[2017-10-19] MEDS ORDERED: FENOFIBRATE NANOCRYSTALLIZED 145 MG TABLET PO SCH (21:00)
== END 2017-10-19 21:02 | disposition home or self-care (01) | DRG 282 ==
LOC: ER 18:06 → TELE 10-19 01:50 → MED 10-19 19:40
PROVIDERS: ADMIT Internal Medicine; ATTEND Internal Medicine
DX: K85.90 Acute pancreatitis without necrosis or infection, unspecified (principal); K76.0 Fatty (change of) liver, not elsewhere classified; E11.65 Type 2 diabetes mellitus with hyperglycemia; E78.1 Pure hyperglyceridemia; K86.3 Pseudocyst of pancreas; E83.42 Hypomagnesemia; K40.20 Bilateral inguinal hernia, without obstruction or gangrene, not specified as recurrent; J98.11 Atelectasis; E66.9 Obesity, unspecified; Z68.39 Body mass index [BMI] 39.0-39.9, adult; Z82.49 Family history of ischemic heart disease and other diseases of the circulatory system; Z83.3 Family history of diabetes mellitus; Z79.82 Long term (current) use of aspirin; E78.5 Hyperlipidemia, unspecified; G89.29 Other chronic pain; M47.9 Spondylosis, unspecified; Z87.440 Personal history of urinary (tract) infections; K86.1 Other chronic pancreatitis
CPT/HCPCS: 36415; 70030-TC; 71045; 83690; 83735; 84100; 85025; 85730; 86301; 93005; A4663; C9113; J1815; J2060; J2270; J2405; J3490; J7030; Q9967

== ENCOUNTER 2019-05-19 16:28 | Inpatient (IN) | payer MEDICARE, MEDICAID ==
[~2019-05-19] VITALS: Ht 172.7 cm; Wt 107.5 kg
[~2019-05-19 16:28] MED LIST changes: -EZET10TA13 PO; +EZET10TA15 PO; +HYDR-4354 PO; -LOSA50TA21 PO; +LOSA50TA39 PO; +METF-442 PO; -METF10004 PO
[2019-05-19] MEDS ORDERED: GABA-534 PO (16:56)
[2019-05-19] MEDS ORDERED: BENZ-13 PO (16:56)
[2019-05-19] MEDS ORDERED: EMPA25TA PO (16:56)
[2019-05-19] MEDS ORDERED: ERGO500040 PO (16:56)
[2019-05-19] MEDS ORDERED: METF-442 PO (16:56)
[2019-05-19] MEDS ORDERED: INSU100I26 SQ (16:56)
[2019-05-19] MEDS ORDERED: AMLO5TAB9 PO (16:56)
[2019-05-19] MEDS ORDERED: MECL-102 PO (16:56)
[2019-05-19] MEDS ORDERED: DEXL60CA3 PO (16:56)
[2019-05-19] MEDS ORDERED: ASPI-605 PO (16:56)
[2019-05-19] MEDS ORDERED: METO-356 PO (16:56)
[2019-05-19] MEDS ORDERED: INSU500I SQ (16:56)
[2019-05-19] MEDS ORDERED: PIOG15TA8 PO (16:56)
[2019-05-19] MEDS ORDERED: EZET10TA32 PO (16:56)
[2019-05-19] MEDS ORDERED: GLIM4TAB4 PO (16:56)
[2019-05-19] MEDS ORDERED: HYDR-3326 PO (16:56)
[2019-05-19] MEDS ORDERED: [UNRECOGNIZED DRUG - OTHER] (16:56)
[2019-05-19] MEDS ORDERED: OMEP20CA11 PO (16:56)
[2019-05-19] MEDS ORDERED: GEMF600T5 PO (16:56)
[2019-05-19] MEDS ORDERED: KETOROLAC TROMETHAMINE 15 MG INJ IVP ONE (17:00)
[2019-05-19] MEDS ORDERED: ONDANSETRON 4 MG/2 ML VIAL IV ONE ×3 (17:00→21:00)
[2019-05-19] MEDS ORDERED: IV NORMAL SALINE 1000 ML BAG IV ONE (17:00)
[2019-05-19] MEDS ORDERED: HYDROCODONE/APAP 5-325MG TABLET PO ONE (17:00)
[2019-05-19] MEDS ORDERED: ONDANSETRON 4 MG/2 ML VIAL ONE ×3 (17:01→21:07)
[2019-05-19] MEDS ORDERED: KETOROLAC TROMETHAMINE 15 MG INJ ONE (17:01)
[2019-05-19] MEDS ORDERED: HYDROCODONE/APAP 5-325MG TABLET ONE (17:02)
[2019-05-19 17:50] LABS: HEMOGLOBIN 13.2 G/DL (14.0-18.0); RED BLOOD CELL COUNT(AUTO) 4.64 MIL/UL (4.7-6.1)
[2019-05-19 17:51] LABS: HEMATOCRIT 39.1 % (40-50); MEAN CORPUSCULAR HEMOGLOBIN 28.4 UUG (27.0-31.0); MEAN CORPUSCULAR HGB CONC 34 g/dL (32.0-37.0); MEAN CORPUSCULAR VOLUME 84.4 FL (82.0-92.0); PLATELET COUNT (AUTO) 421 K/UL (150-450)
[2019-05-19 17:53] LABS: WHITE BLOOD COUNT (AUTO) 8.6 K/UL (4.0-11.2)
[2019-05-19 17:54] LABS: BAND % (MANUAL) 7 % (0-10); LYMPHOCYTES % (MANUAL) 36 % (20-40); NEUTROPHILS % (MANUAL) 46 % (42-75)
[2019-05-19 17:55] LABS: EOSINOPHILS % (MANUAL) 5 % (0-8); MONOCYTES % (MANUAL) 4 % (2-10)
--- NOTE | 2019-05-19 18:11 | NUR ---
patient provided urine sample using urinal at bedside
--- NOTE | 2019-05-19 18:12 | NUR ---
patient states the pain medication has not helped and would like something stronger, pt states pain is getting worse. MD made aware
[2019-05-19] MEDS ORDERED: HYDROMORPHONE 1 MG/1 ML DISP.SYRIN IV ONE ×3 (18:15→21:00)
[2019-05-19] MEDS ORDERED: HYDROMORPHONE 1 MG/1 ML DISP.SYRIN ONE (18:19)
[2019-05-19 18:31] LABS: *BILIRUBIN,URIN NEGATIVE (NEGATIVE); *BLOOD, URINE 1+ (NEGATIVE); *CLARITY,URINE SLIGHTLY CLOUDY (CLEAR); *COLOR,URINE YELLOW (YELLOW); *KETONES,URINE NEGATIVE (NEGATIVE); *UROBILINOGEN,URINE 0.2 E.U./dl (NORMAL); LEUKOCYTE ESTERASE ,URINE TRACE (NEGATIVE); NITRITE, URINE NEGATIVE (NEGATIVE); PH,URINE 5.5 (5.0-8.0)
[2019-05-19 18:39] LABS: UGLUCOSE 2+ (NEGATIVE)
--- NOTE | 2019-05-19 18:39 | NUR ---
Critical Lab resulr -Urine glucose 2+
[2019-05-19 18:42] LABS: *AMPHETAMINE, URINE NEGATIVE (NEGATIVE); *BARBITURATE, URINE NEGATIVE (NEGATIVE); *CANNABINOID, URINE NEGATIVE (NEGATIVE); *COCCAINE, URINE NEGATIVE (NEGATIVE); *OPIATE, URINE POSITIVE (NEGATIVE); *PHENCYCLIDINE SCREEN,URINE NEGATIVE (NEGATIVE); BACTERIA,URINE FEW /HPF (NONE SEEN); SQUAMOUS EPITHELIAL CELL,UR FEW /HPF (NONE SEEN); WBC,URINE 20-50 /HPF (0-3)
[2019-05-19 18:44] LABS: MUCUS,URINE MODERATE /LPF (0-FEW); YEAST,URINE RARE /HPF (NONE SEEN)
--- NOTE | 2019-05-19 19:01 | NUR ---
report given to Brenda for transfer of care
--- NOTE | 2019-05-19 19:01 | NUR ---
Received SBAR and Hand off from outgoing dayshift RN Pt NAD, c/o 02/24 inferior sternal area. states dilaudid helped also states acute pain and tingling on fingertips of both hands. Waiting on CMP results which was sent to [facility] 10mins ago as endorsed, pt will be admitted under DR Rojelio KENDRICK Pancreatitis Monitored accordingly Bed at lowest position Siderails x2 up
[2019-05-19] MEDS ORDERED: CEFTRIAXONE /D5W 50ML IVPB **ER PYXIS IV ONE (19:05)
[2019-05-19] MEDS ORDERED: CEFTRIAXONE 1 G in IV DEXTROSE 5% 50 ML IV ONE (19:15)
[2019-05-19] MEDS ORDERED: HYDROMORPHONE 2 MG/1 ML DISP.SYRIN ONE ×2 (19:27→21:07)
[2019-05-19 19:56] LABS: ETHANOL < 3 MG/DL (0-0)
[2019-05-19 19:57] LABS: CARBON DIOXIDE 20 mmol/L (21-32); CHLORIDE 93 mmol/L (98-107); POTASSIUM 3.8 mmol/L (3.5-5.1)
[2019-05-19 19:58] LABS: GLUCOSE 469 mg/dL (74-106)
[2019-05-19 19:59] LABS: ALKALINE PHOSPHATASE 83 U/L (50-136); CREATININE 1.1 mg/dL (0.6-1.3); TOTAL PROTEIN, SERUM 7.7 g/dL (6.4-8.2); UREA NITROGEN, BLOOD 9 mg/dL (7-20)
[2019-05-19 20:02] LABS: CHOLESTEROL 511 mg/dL (<200); HDL CHOLESTEROL > 150 mg/dL (40-60); TRIGLYCERIDES 7936 MG/DL (30-150)
[2019-05-19 20:03] LABS: LIPASE 46 U/L (73-393)
[2019-05-19 20:05] LABS: ALANINE AMINOTRANSFERASE 93 U/L (16-63); ASPARTATE AMINOTRANSFERASE 54 U/L (15-37)
[2019-05-19] MEDS ORDERED: INSULIN REGULAR, HUMAN 300 UNIT/3 ML VIAL ONE (20:06)
[2019-05-19 20:11] LABS: BILIRUBIN,DIRECT < 0.1 mg/dL (0.0-0.2); BILIRUBIN,TOTAL 0.5 mg/dL (0.1-1.0)
[2019-05-19] MEDS ORDERED: INSULIN REGULAR, HUMAN 300 UNIT/3 ML VIAL IV ONE (20:15)
--- NOTE | 2019-05-19 20:15 | NUR ---
PT BLOOD GLUCOSE 469 PT RECEIVED HUMULIN R PER IV ORDERED CO-SIGNED BY ARLETH MCKAY
--- NOTE | 2019-05-19 20:15 | NUR ---
SPENCER BAUTISTA ON THE PHONE WITH DR CHILEL
--- NOTE | 2019-05-19 20:17 | NUR ---
PT TO BE ADMITTED TO CCU-3 WILL BE STARTED ON INSULIN DRIP DX PANCREATITIS UNDER DR CHILEL
[2019-05-19] MEDS ORDERED: IV 1/2NS 1000 ML 1,000 ML IV PRN (20:29)
[2019-05-19] MEDS ORDERED: Z GUARD REMEDY PASTE 57 GM TUBE TOP PRN (20:30)
[2019-05-19] MEDS ORDERED: ACETAMINOPHEN 325 MG TABLET PO PRN (20:30)
[2019-05-19] MEDS ORDERED: INSULIN REGULAR, HUMAN 100 UNIT in IV NORMAL SALINE 100 ML IV ONE ×2 (20:30)
[2019-05-19] MEDS ORDERED: INSULIN REGULAR, HUMAN 100 UNITS in IV NORMAL SALINE 100 ML IV ONE ×2 (21:00)
--- NOTE | 2019-05-19 21:00 | NUR ---
REASSESSED BLOOD GLUCOSE: 265 PT STARTED ON INSULIN DRIP ORDERED: 10UNITS/ HR ON 0.9%NSS 100ML PT ABLE TO TOLERATE MONITORED ACCORDINGLY
--- NOTE | 2019-05-19 21:59 | NUR ---
REPORT GIVEN TO MS HARRY RN PT WILL BE ADMITTED TO CCU [address] CHILEL ALL BELONGINGS W/ PT BELONGINGS LIST SIGNED TRANSPORTED VIA [facility]
[2019-05-19 22:30] VITALS: BP 123/97
[2019-05-19] MEDS: INSULIN REGULAR, HUMAN 100 UNIT in IV NORMAL SALINE 99 ML IV PRN ×2 (22:31)
--- NOTE | 2019-05-19 22:35 | NUR ---
EMAR RN NOTE FOR NOVOLIN: REASSESSED BLOOD GLUCOSE: 265 PT STARTED ON INSULIN DRIP ORDERED: 10UNITS/ HR ON 0.9%NSS 100ML, INFUSING WELL PROTOCOL FOR INSULIN DRIP INITIATED PT ABLE TO TOLERATE MONITORED ACCORDINGLY
--- NOTE | 2019-05-19 22:35 | NUR ---
Admitted a 38 y.o male patient from ER via [facility] DX: Acute Pancreatitis. AAO, NAD noted. On continuous Insulin drip @ 10 units per hour via infusion pump to RHD IV site. Attached to bedside monitor: SR. Assessment done. [id number].
[2019-05-19 23:00] VITALS: BP 135/93
[2019-05-19] MEDS: BLOOD SUGAR DIAGNOSTIC 1 EACH STRIP VI SCH (23:00)
--- NOTE | 2019-05-19 23:10 | NUR ---
Spoke to Dr. Serrato; Informed of [id number] and Insulin orders clarified with him. Orders received for Insulin drip not for DKA Algorithm#1 and to change IV to D51/2 NS at same rate. Insulin drip protocol faxed to Pharmacy.
[2019-05-19] MEDS: HYDROMORPHONE 2 MG/1 ML DISP.SYRIN IV PRN (23:12)
--- NOTE | 2019-05-19 23:12 | NUR ---
Medicated with Dilaudid for Epigastric/abdominal pain.
[2019-05-19] MEDS: IV D5 1/2 NS 1000 ML 1,000 ML IV PRN (23:26)
[2019-05-19 23:30] VITALS: BP 130/86
[2019-05-20] VITALS (23 sets, daily range): BP systolic 123–159; BP diastolic 55–105
--- NOTE | 2019-05-20 | NUR ---
Saturation 88-91% on room air; O2 2L NC administered. [id number]; Insulin drip increased to 1.5 units/H as per protocol.
[2019-05-20] MEDS: BLOOD SUGAR DIAGNOSTIC 1 EACH STRIP VI SCH ×24 (00:05→23:08)
--- NOTE | 2019-05-20 01:31 | NUR ---
0200: (Fall Back time) [id number]; Insulin drip increased to 2 units/H.
[2019-05-20] MEDS: HYDROMORPHONE 2 MG/1 ML DISP.SYRIN IV PRN ×7 (02:38→22:07)
[2019-05-20 05:24] LABS: MAGNESIUM 1.4 mg/dL (1.8-2.4); POTASSIUM 3.3 mmol/L (3.5-5.1)
[2019-05-20 05:26] LABS: BASOPHILS # (AUTO) 0.2 K/uL (0.0-8.0); BASOPHILS % (AUTO) 3.4 % (0.0-2.0); EOSINOPHILS # (AUTO) 0.5 K/uL (0.0-0.7); EOSINOPHILS % (AUTO) 7.4 % (0.0-7.0); LYMPHOCYTES # (AUTO) 1.4 K/uL (20.0-40.0); LYMPHOCYTES % (AUTO) 20.1 % (20.5-51.5); MONOCYTES # (AUTO) 1.2 K/uL (2.0-10.0); MONOCYTES % (AUTO) 17.8 % (0.0-11.0); NEUTROPHILS # (AUTO) 3.5 K/uL (1.8-8.9); PLATELET COUNT (AUTO) 372 K/uL (152-348); WHITE BLOOD COUNT (AUTO) 6.8 K/uL (3.6-10.2)
[2019-05-20] MEDS: IV D5 1/2 NS 1000 ML 1,000 ML IV PRN ×3 (05:34→20:10)
[2019-05-20 06:14] LABS: MEAN CORPUSCULAR HEMOGLOBIN 28.7 uug (23.8-33.4); MEAN CORPUSCULAR HGB CONC 33 g/dL (32.5-36.3)
[2019-05-20 06:15] LABS: HEMATOCRIT 33.1 % (36.7-47.1)
[2019-05-20 06:16] LABS: MEAN CORPUSCULAR VOLUME 86.3 fL (73.0-96.2); NEUTROPHILS % (AUTO) 51.3 % (38.5-71.5)
[2019-05-20 06:44] LABS: EOSINOPHILS % (MANUAL) 4 % (0-8); LYMPHOCYTES % (MANUAL) 27 % (20-40); MONOCYTES % (MANUAL) 6 % (2-10); NEUTROPHILS % (MANUAL) 63 % (42-75)
--- NOTE | 2019-05-20 07:21 | NUR ---
Insulin drip at 2 units/H with accuchecks QH. VS stable. Medicated with Dilaudid Q4H fo epigastric/abdominal pain with relief. Report given to am shift.
[2019-05-20 08:45] LABS: BILIRUBIN,TOTAL 0.2 mg/dL (0.2-1.0)
[2019-05-20 08:46] LABS: PHOSPHOROUS 4.1 mg/dL (2.5-4.9)
[2019-05-20 08:56] LABS: CREATININE 0.8 mg/dL (0.6-1.3)
[2019-05-20] MEDS: POTASSIUM CHLORIDE 50 ML IV SCH ×5 (08:59→12:40)
[2019-05-20] MEDS: MAGNESIUM SULFATE/D5W 100 ML IV SCH ×2 (08:59→16:00)
[2019-05-20] MEDS ORDERED: METOPROLOL SUCCINATE XL 25 MG TAB.SR.24H PO SCH (09:00)
[2019-05-20] MEDS: ASPIRIN EC 81 MG TABLET.DR PO SCH (09:29)
[2019-05-20] MEDS: GABAPENTIN 300 MG CAPSULE PO SCH (09:30)
[2019-05-20] MEDS: AMLODIPINE 5 MG TABLET PO SCH (09:30)
[2019-05-20] MEDS: EZETIMIBE 10 MG TABLET PO SCH (09:31)
[2019-05-20] MEDS: GEMFIBROZIL 600 MG TABLET PO SCH ×2 (09:32→17:50)
[2019-05-20] MEDS: INSULIN REGULAR, HUMAN 100 UNIT in IV NORMAL SALINE 99 ML IV PRN ×2 (09:49)
--- NOTE | 2019-05-20 10:00 | NUR ---
PATIENT RECIEVED, ALERT AND ORIENTED X 3. REQUESTING PAIN MED FOR GEN DISCOMFORT. DILAUDID GIVEN 2MG IVP. INSULIN GTT CONT AT 2UNITS/HR PER HOURLY ACCUCHECK
[2019-05-20] MEDS: ONDANSETRON 4 MG/2 ML VIAL IV PRN ×2 (16:11→22:07)
--- NOTE | 2019-05-20 19:25 | NUR ---
Report received. Patient AAO, c/o epigastric/mid chest crushing pain and requesting for his pain medication. VS stable. Medicated with Dilaudid IV. On continuous Insulin drip via infusion pump. O2 2 L NC; NAD noted. Addendum: 05/20/19 at 2120 by PIERO MCLAUGHLIN RN Amended: Links added. Addendum: 05/20/19 at 212 by PIERO MCLAUGHLIN RN Amended: Links added.
[2019-05-20] MEDS ORDERED: METOCLOPRAMIDE HCL 10 MG/2 ML VIAL IV PRN (19:30)
--- NOTE | 2019-05-20 19:30 | NUR ---
Vomited green fluids; spoke to Marcial Villareal not due till 2199. Order received for Reglan. Patient informed of medication order but refused. Claims he feels better after vomiting. Addendum: 05/20/19 at 2125 by PIERO MCLAUGHLIN RN Amended: Links added.
[2019-05-21] VITALS (23 sets, daily range): BP systolic 119–152; BP diastolic 73–92
[2019-05-21] MEDS: BLOOD SUGAR DIAGNOSTIC 1 EACH STRIP VI SCH ×25 (00:06→23:57)
[2019-05-21] MEDS: HYDROMORPHONE 2 MG/1 ML DISP.SYRIN IV PRN ×7 (02:34→22:22)
[2019-05-21] MEDS: IV D5 1/2 NS 1000 ML 1,000 ML IV PRN ×3 (02:43→23:07)
[2019-05-21 04:56] LABS: BASOPHILS # (AUTO) 0.1 K/uL (0.0-8.0); EOSINOPHILS # (AUTO) 0.5 K/uL (0.0-0.7); LYMPHOCYTES # (AUTO) 1.3 K/uL (20.0-40.0); MONOCYTES # (AUTO) 1.1 K/uL (2.0-10.0); NEUTROPHILS # (AUTO) 3.6 K/uL (1.8-8.9); PLATELET COUNT (AUTO) 324 K/uL (152-348); RED BLOOD CELL COUNT(AUTO) 3.98 MIL/uL (4.06-5.63); WHITE BLOOD COUNT (AUTO) 6.7 K/uL (3.6-10.2)
[2019-05-21] MEDS: ONDANSETRON 4 MG/2 ML VIAL IV PRN ×3 (05:21→19:03)
[2019-05-21 06:33] LABS: CREATININE 0.8 mg/dL (0.6-1.3); POTASSIUM 3.8 mmol/L (3.5-5.1)
--- NOTE | 2019-05-21 06:36 | NUR ---
Remains on continuous Insulin drip and accuchecks hourly. NAD noted. Slept on and off after every pain medication. Monitor: SR; SBPs 120's-140's with diastoles trending 80's-90's. Am care rendered; patient dangled at side on bed. Tolerated care fairly well. No further vomiting.
[2019-05-21 06:55] LABS: MEAN CORPUSCULAR HEMOGLOBIN 28.1 uug (23.8-33.4)
[2019-05-21 06:56] LABS: MEAN CORPUSCULAR HGB CONC 33 g/dL (32.5-36.3)
[2019-05-21 06:57] LABS: BASOPHILS % (AUTO) 0.8 % (0.0-2.0); EOSINOPHILS % (AUTO) 5.5 % (0.0-7.0); LYMPHOCYTES % (AUTO) 35.3 % (20.5-51.5); MONOCYTES % (AUTO) 4.1 % (0.0-11.0); NEUTROPHILS % (AUTO) 54.3 % (38.5-71.5)
[2019-05-21 06:58] LABS: HEMATOCRIT 33.3 % (36.7-47.1)
[2019-05-21 06:59] LABS: MEAN CORPUSCULAR VOLUME 84.1 fL (73.0-96.2)
--- NOTE | 2019-05-21 07:42 | NUR ---
dr drew came to see pt , received new orders Addendum: 05/21/19 at 1858 by NOEMI HINES RN Amended: Bay added. Addendum: 05/21/19 at 1859 by NOEMI HINES RN Amended: Bay vidal.
[2019-05-21] MEDS: ASPIRIN EC 81 MG TABLET.DR PO SCH (08:18)
[2019-05-21] MEDS: PANTOPRAZOLE SODIUM 40 MG VIAL IV SCH (08:18)
[2019-05-21] MEDS: AMLODIPINE 5 MG TABLET PO SCH (08:19)
[2019-05-21] MEDS: METOPROLOL SUCCINATE XL 50 MG TAB.SR.24H PO SCH (08:20)
--- NOTE | 2019-05-21 08:41 | NUR ---
medicated for epigastric pain , scale 7/10 Addendum: 05/21/19 at 0842 by NOEMI HNIES RN Amended: Links added.
[2019-05-21] MEDS ORDERED: METOPROLOL SUCCINATE XL 25 MG TAB.SR.24H PO SCH (09:00)
[2019-05-21] MEDS: GEMFIBROZIL 600 MG TABLET PO SCH ×2 (09:21→17:18)
[2019-05-21] MEDS: GABAPENTIN 300 MG CAPSULE PO SCH (09:21)
[2019-05-21] MEDS: EZETIMIBE 10 MG TABLET PO SCH (09:21)
--- NOTE | 2019-05-21 09:40 | NUR ---
dr garay , came to see patient Addendum: 05/21/19 at 1859 by NOEMI HINES RN Amended: Links added.
--- NOTE | 2019-05-21 11:22 | NUR ---
MEDICATED FOR EPIGASTRIC PAIN SCALE OF 5 /10 Addendum: 05/21/19 at 1413 by NOEMI HINES RN Amended: Bay added. Addendum: 05/21/19 at 1414 by NOEMI HINES RN Amended: Bay vidal.
--- NOTE | 2019-05-21 11:22 | NUR ---
MEDICATED FOR NAUSEA Addendum: 05/21/19 at 1414 by NOEMI HINES RN Amended: Links added.
--- NOTE | 2019-05-21 15:20 | NUR ---
medicated for same epigastric pain scale 03/27 Addendum: 05/21/19 at 1521 by NOEMI HINES RN Amended: Links added.
--- NOTE | 2019-05-21 19:10 | NUR ---
medicated for pain and nausea Addendum: 05/21/19 at 1910 by DAMIAN MARK RN Amended: Links added.
--- NOTE | 2019-05-21 20:00 | NUR ---
RECEIVED PT. DROWSY, AROUSABLE, DENIES PAIN THIS TIME. ON O2 @ 2LNC W/ O2 SAT OF 93%.IVF D51/2NS @ 150CC/HR ON R HAND. ON REGULAR HUMULIN INSULIN DRIP @ 3 UNITS/HR , BS-244. HEP LOCK INTACT & PATENT ON LFA. C-SCOPE SR NO ECTOPY. NOT IN ANY DISTRESS
--- NOTE | 2019-05-21 22:22 | NUR ---
MEDICATED W/ DILAUDID 2MG IVP FOR EPIGASTRIC PAIN SCALE 10/10. BP STABLE.
[2019-05-22] VITALS (23 sets, daily range): BP systolic 105–140; BP diastolic 64–91
[2019-05-22] MEDS: BLOOD SUGAR DIAGNOSTIC 1 EACH STRIP VI SCH ×24 (00:57→23:55)
[2019-05-22] MEDS: HYDROMORPHONE 2 MG/1 ML DISP.SYRIN IV PRN ×7 (01:28→20:21)
--- NOTE | 2019-05-22 01:28 | NUR ---
C/O EPIGASTRIC PAIN SCALE 8/10, MEDICATED W/ DILAUDID 2MG IVP FOR PAIN. V/S STABLE.
--- NOTE | 2019-05-22 04:00 | NUR ---
REFUSED AM CARE, WILL HAVE IT DONE LATER. V/S STABLE. C/O EPIGASTRIC PAIN SCALE 7/10.
[2019-05-22] MEDS: INSULIN REGULAR, HUMAN 100 UNIT in IV NORMAL SALINE 99 ML IV PRN ×4 (05:13→10:01)
[2019-05-22 05:15] LABS: CARBON DIOXIDE 29 mmol/L (21-32); CHLORIDE 93 mmol/L (98-107); CREATININE 0.5 mg/dL (0.6-1.3); GLUCOSE 289 mg/dL (74-106); UREA NITROGEN, BLOOD 3 mg/dL (7-18)
[2019-05-22 05:21] LABS: BASOPHILS # (AUTO) 0.2 K/uL (0.0-8.0); BASOPHILS % (AUTO) 2.5 % (0.0-2.0); EOSINOPHILS # (AUTO) 0.5 K/uL (0.0-0.7); EOSINOPHILS % (AUTO) 7.3 % (0.0-7.0); HEMATOCRIT 33.7 % (36.7-47.1); HEMOGLOBIN 12.5 g/dL (12.5-16.3); LYMPHOCYTES # (AUTO) 2.4 K/uL (20.0-40.0); LYMPHOCYTES % (AUTO) 38.2 % (20.5-51.5); MEAN CORPUSCULAR HEMOGLOBIN 31.1 uug (23.8-33.4); MEAN CORPUSCULAR HGB CONC 37 g/dL (32.5-36.3); MEAN CORPUSCULAR VOLUME 83.7 fL (73.0-96.2); MONOCYTES # (AUTO) 0.4 K/uL (2.0-10.0); MONOCYTES % (AUTO) 6.2 % (0.0-11.0); NEUTROPHILS # (AUTO) 2.9 K/uL (1.8-8.9); NEUTROPHILS % (AUTO) 45.8 % (38.5-71.5); PLATELET COUNT (AUTO) 355 K/uL (152-348); RED BLOOD CELL COUNT(AUTO) 4.03 MIL/uL (4.06-5.63); WHITE BLOOD COUNT (AUTO) 6.3 K/uL (3.6-10.2)
[2019-05-22] MEDS: IV D5 1/2 NS 1000 ML 1,000 ML IV PRN ×2 (05:54→12:37)
--- NOTE | 2019-05-22 06:15 | NUR ---
REMAINS ON HUMULIN REGULAR INSULIN DRIP. ACCUCHECK DONE QIH & RECORDED. NOT IN ANY DISTRESS.
[2019-05-22] MEDS: ASPIRIN EC 81 MG TABLET.DR PO SCH (08:07)
[2019-05-22] MEDS: GABAPENTIN 300 MG CAPSULE PO SCH (08:07)
[2019-05-22] MEDS: PANTOPRAZOLE SODIUM 40 MG VIAL IV SCH (08:07)
[2019-05-22] MEDS: EZETIMIBE 10 MG TABLET PO SCH (08:07)
[2019-05-22] MEDS: METOPROLOL SUCCINATE XL 50 MG TAB.SR.24H PO SCH (08:08)
[2019-05-22] MEDS: GEMFIBROZIL 600 MG TABLET PO SCH ×2 (08:08→17:19)
[2019-05-22] MEDS: AMLODIPINE 5 MG TABLET PO SCH (08:09)
--- NOTE | 2019-05-22 08:33 | NUR ---
Pharmacy was notified of New Insulin bag request
[2019-05-22] MEDS: ONDANSETRON 4 MG/2 ML VIAL IV PRN (10:33)
--- NOTE | 2019-05-22 12:39 | NUR ---
DR CASTAÑEDA CAME TO SEE PTIENT , CHANGED IV FLUID FROM D51/2 NS TO D5 NS DUE TO LOW NA leve Addendum: 05/22/19 at 1355 by NOEMI HINES RN Amended: Links added.
[2019-05-22] MEDS: IV D5/ 0.9% NACL 1,000 ML IV PRN ×2 (12:59→19:53)
--- NOTE | 2019-05-22 16:55 | NUR ---
Exhibits no loss of weight * Maintains balanced intake and outpu Addendum: 05/22/19 at 1700 by NOEMI HINES RN Amended: Links added.
--- NOTE | 2019-05-22 16:56 | NUR ---
Exhibits no s/s of infection Addendum: 05/22/19 at 1700 by NOEMI HINES RN Amended: Links added.
--- NOTE | 2019-05-22 16:57 | NUR ---
an * Understands factors which upset diabetes management * Understands medication regime * Understands need to control blood green Addendum: 05/22/19 at 1700 by NOEMI HINES RN Amended: Links added.
--- NOTE | 2019-05-22 18:12 | NUR ---
dr nunez is here to see patient , aware of current labs , talked to the patient , diet has been changed to diabetic Addendum: 05/22/19 at 1812 by NOEMI HINES RN Amended: Links added.
--- NOTE | 2019-05-22 18:45 | NUR ---
came to see patient , at the bedside , gave updated status with patient consent
--- NOTE | 2019-05-22 19:30 | NUR ---
Report received. Patient admitted 05/19/2019 with abdominal DX: Acute Pancreatitis. OBEY TYLER noted. On continuous Insulin drip per protocol via infusion pump currently @ 1.5 units/H and accuchecks QH. Assessment done; see flow sheet for complete data. Addendum: 05/22/19 at 2209 by PIERO MCLAUGHLIN RN Amended: Links added. Addendum: 05/22/19 at 2213 by PIERO MCLAUGHLIN RN Amended: Links added. Addendum: 05/22/19 at 2214 by PIERO MCLAUGHLIN RN Amended: Links added. Addendum: 05/22/19 at 2214 by PIERO MCLAUGHLIN RN Amended: Links added. Addendum: 05/22/19 at 2215 by PIERO MCLAUGHLIN RN Amended: Links added. Addendum: 05/22/19 at 2230 by PIERO MCLAUGHLIN RN Amended: Links added.
--- NOTE | 2019-05-22 20:20 | NUR ---
Ate dinner. PM care rendered afterwards. Patient encouraged increasing mobility. Sat at side of bed. No dizziness; tolerated care well. Medicated with Dilaudid for c/o abdominal/epigastric pain per patient's request. Addendum: 05/22/19 at 3 by PIERO MCLAUGHLIN RN Amended: Links added. Addendum: 05/22/19 at 4 by PIERO MCLAUGHLIN RN Amended: Links added. Addendum: 05/22/19 at 2214 by PIERO MCLAUGHLIN RN Amended: Links added. Addendum: 05/22/19 at 2215 by PIERO MCLAUGHLIN RN Amended: Links added. Addendum: 05/22/19 at 2230 by PIERO MCLAUGHLIN RN Amended: Links added.
[2019-05-23] VITALS (24 sets, daily range): BP systolic 107–139; BP diastolic 59–83
[2019-05-23] MEDS: BLOOD SUGAR DIAGNOSTIC 1 EACH STRIP VI SCH ×23 (01:12→23:05)
[2019-05-23] MEDS: HYDROMORPHONE 2 MG/1 ML DISP.SYRIN IV PRN ×6 (02:00→20:52)
[2019-05-23] MEDS: IV D5/ 0.9% NACL 1,000 ML IV PRN ×3 (02:15→16:05)
[2019-05-23 05:07] LABS: BASOPHILS # (AUTO) 0.3 K/uL (0.0-8.0); BASOPHILS % (AUTO) 2.6 % (0.0-2.0); EOSINOPHILS # (AUTO) 0.3 K/uL (0.0-0.7); EOSINOPHILS % (AUTO) 2.9 % (0.0-7.0); HEMOGLOBIN 11.3 g/dL (12.5-16.3); LYMPHOCYTES % (AUTO) 19.8 % (20.5-51.5); MEAN CORPUSCULAR HEMOGLOBIN 29.8 uug (23.8-33.4); MEAN CORPUSCULAR HGB CONC 35 g/dL (32.5-36.3); MEAN CORPUSCULAR VOLUME 84.3 fL (73.0-96.2); MONOCYTES # (AUTO) 0.6 K/uL (2.0-10.0); MONOCYTES % (AUTO) 5.7 % (0.0-11.0); NEUTROPHILS # (AUTO) 6.9 K/uL (1.8-8.9); PLATELET COUNT (AUTO) 295 K/uL (152-348); WHITE BLOOD COUNT (AUTO) 9.9 K/uL (3.6-10.2)
[2019-05-23 05:22] LABS: ALANINE AMINOTRANSFERASE < 6 U/L (16-63); ALKALINE PHOSPHATASE 66 U/L (50-136); ASPARTATE AMINOTRANSFERASE < 5 U/L (15-37); BILIRUBIN,TOTAL 0.7 mg/dL (0.2-1.0); CARBON DIOXIDE 32 mmol/L (21-32); CHLORIDE 97 mmol/L (98-107); CREATININE 0.7 mg/dL (0.6-1.3); GLUCOSE 233 mg/dL (74-106); MAGNESIUM 1.4 mg/dL (1.8-2.4); PHOSPHOROUS 3.4 mg/dL (2.5-4.9); TOTAL PROTEIN, SERUM 6.3 g/dL (6.4-8.2); TRIGLYCERIDES 2242 MG/DL (30-150); UREA NITROGEN, BLOOD 3 mg/dL (7-18)
--- NOTE | 2019-05-23 06:23 | NUR ---
VS stable. Still on Insulin drip as per protocol. Accu checks 185-316. Slept fairly well; Dilaudid 2 mg IV for abdominal given 3 times during the shift. Encouraged to increase mobility. Am care rendered and tolerated well. Addendum: 05/23/19 at 0625 by PIERO MCLAUGHLIN RN Amended: Links added.
[2019-05-23] MEDS: PANTOPRAZOLE SODIUM 40 MG VIAL IV SCH (08:10)
[2019-05-23] MEDS: ASPIRIN EC 81 MG TABLET.DR PO SCH (08:10)
[2019-05-23] MEDS: GABAPENTIN 300 MG CAPSULE PO SCH (08:10)
[2019-05-23] MEDS: METOPROLOL SUCCINATE XL 50 MG TAB.SR.24H PO SCH (08:11)
[2019-05-23] MEDS: AMLODIPINE 5 MG TABLET PO SCH (08:11)
[2019-05-23] MEDS: GEMFIBROZIL 600 MG TABLET PO SCH ×2 (08:12→16:53)
[2019-05-23] MEDS: EZETIMIBE 10 MG TABLET PO SCH (08:12)
--- NOTE | 2019-05-23 08:21 | NUR ---
Pt.was seen by .
[2019-05-23] MEDS: INSULIN REGULAR, HUMAN 100 UNIT in IV NORMAL SALINE 99 ML IV PRN ×2 (10:12)
--- NOTE | 2019-05-23 14:56 | NUR ---
Pt. watching TV, no s/s of acute distress.
[2019-05-23] MEDS: MAGNESIUM SULFATE/D5W 100 ML IV SCH ×4 (16:48→20:06)
--- NOTE | 2019-05-23 18:10 | NUR ---
Pt.was seen by .
--- NOTE | 2019-05-23 19:30 | NUR ---
Report received. Patient admitted 05/19/2019 DX: Acute Pancreatitis. AAO, with O2 at 2 L NC, sat above 92%. NAD noted. On continuous Insulin drip via infusion pump as per protocol currently on Algorithm #3. Drip protocol discussed with Pharmacist and arabella MCKAY. Addendum: 05/23/19 at 2025 by PIERO MCLAUGHLIN RN Amended: Links added.
[2019-05-23] MEDS: INSULIN GLARGINE,HUM 300 UNITS/3 ML CARTRIDGE SQ SCH (20:04)
--- NOTE | 2019-05-23 20:30 | NUR ---
Encouraged personal hygiene. Assisted up to chair. No dizziness or chest pain. PM care rendered. Tolerated activity well.
[2019-05-24] VITALS (17 sets, daily range): BP systolic 98–130; BP diastolic 67–87
[2019-05-24] MEDS: BLOOD SUGAR DIAGNOSTIC 1 EACH STRIP VI SCH ×14 (00:05→13:11)
[2019-05-24] MEDS: HYDROMORPHONE 2 MG/1 ML DISP.SYRIN IV PRN ×4 (00:07→09:19)
[2019-05-24] MEDS: IV D5/ 0.9% NACL 1,000 ML IV PRN ×2 (03:04→10:31)
[2019-05-24 05:30] LABS: BASOPHILS # (AUTO) 0.1 K/uL (0.0-8.0); BASOPHILS % (AUTO) 1.3 % (0.0-2.0); EOSINOPHILS # (AUTO) 0.4 K/uL (0.0-0.7); EOSINOPHILS % (AUTO) 4.5 % (0.0-7.0); HEMATOCRIT 32.5 % (36.7-47.1); HEMOGLOBIN 11.1 g/dL (12.5-16.3); LYMPHOCYTES # (AUTO) 2.2 K/uL (20.0-40.0); LYMPHOCYTES % (AUTO) 27.1 % (20.5-51.5); MEAN CORPUSCULAR HEMOGLOBIN 29.5 uug (23.8-33.4); MEAN CORPUSCULAR HGB CONC 34 g/dL (32.5-36.3); MEAN CORPUSCULAR VOLUME 86.7 fL (73.0-96.2); MONOCYTES # (AUTO) 0.6 K/uL (2.0-10.0); MONOCYTES % (AUTO) 7.2 % (0.0-11.0); NEUTROPHILS # (AUTO) 4.8 K/uL (1.8-8.9); NEUTROPHILS % (AUTO) 59.9 % (38.5-71.5); PLATELET COUNT (AUTO) 261 K/uL (152-348); RED BLOOD CELL COUNT(AUTO) 3.75 MIL/uL (4.06-5.63); WHITE BLOOD COUNT (AUTO) 8.1 K/uL (3.6-10.2)
[2019-05-24 06:15] LABS: CREATININE 0.7 mg/dL (0.6-1.3); MAGNESIUM 1.7 mg/dL (1.8-2.4); PHOSPHOROUS 4.4 mg/dL (2.5-4.9); POTASSIUM 3.6 mmol/L (3.5-5.1)
--- NOTE | 2019-05-24 06:51 | NUR ---
Remains on Insulin drip per protocol (Algorithm#3); Accuchecks QH ranges 155-236. VS stable. NAD. Slept fairly well during the night. Still requiring Dilaudid 2 mg IV for abdominal pain Q3H. Possible DC home today. Addendum: 05/24/19 at 0652 by PIERO MCLAUGHLIN RN Amended: Links added.
[2019-05-24] MEDS: INSULIN GLARGINE,HUM 300 UNITS/3 ML CARTRIDGE SQ SCH (06:58)
--- NOTE | 2019-05-24 07:20 | NUR ---
Report received from fishing reel assembler nurse. Patient admitted 05/19/2019 DX: Acute Pancreatitis. AAOx4, with O2 at 2 L NC, sat above 92%. No distress noted at this time. Patient is on continuous Insulin drip via infusion pump as per protocol currently on Algorithm #3 4u/hr.
--- NOTE | 2019-05-24 08:00 | NUR ---
Decreased oxygen to 1L in efforts to titrate off of oxygen.
[2019-05-24] MEDS: AMLODIPINE 5 MG TABLET PO SCH (08:09)
[2019-05-24] MEDS: GABAPENTIN 300 MG CAPSULE PO SCH (08:09)
[2019-05-24] MEDS: ASPIRIN EC 81 MG TABLET.DR PO SCH (08:10)
[2019-05-24] MEDS: METOPROLOL SUCCINATE XL 50 MG TAB.SR.24H PO SCH (08:10)
[2019-05-24] MEDS: EZETIMIBE 10 MG TABLET PO SCH (08:10)
[2019-05-24] MEDS: GEMFIBROZIL 600 MG TABLET PO SCH ×2 (08:10→16:27)
[2019-05-24] MEDS ORDERED: PANTOPRAZOLE SODIUM 40 MG TABLET.DR PO SCH (09:00)
[2019-05-24] MEDS ORDERED: MAGNESIUM SULFATE 1 GM in IV DEXTROSE 5% 50 ML IV ONE (09:15)
[2019-05-24] MEDS: INSULIN REGULAR, HUMAN 100 UNIT in IV NORMAL SALINE 99 ML IV PRN ×2 (09:19)
--- NOTE | 2019-05-24 09:30 | NUR ---
Decreased oxygen to 0.5l nc for trial pending discharge, patient desaturating down to 85-87%. Increased back to 1L nc and informing physician of status.
[2019-05-24] MEDS ORDERED: MAGNESIUM SULFATE/D5W 100 ML IV SCH (09:45)
--- NOTE | 2019-05-24 09:55 | NUR ---
Received orders for stat cxr and abg from Dr. Lopez.
[2019-05-24 10:32] LABS: ABG BASE EXCESS -1.7 mmol/L; ABG HCO3 23.7 mmol/L; ABG PCO2 42.9 mmHg (35.0-45.0); ABG PH 7.361 (7.350-7.450); ABG PO2 61.6 mmHg (75.0-100.0); ABG SITE RIGHT RADIAL; ABG TOTAL HEMOGLOBIN 11.3 G/dL (13.5-18.0); COHb 1.4 % (0.5-1.5); MetHb 0.1 % (0.0-1.5); O2Hb 89.7 % (94.0-97.0); VENT MODE Nasal Cannula
--- NOTE | 2019-05-24 10:45 | NUR ---
ABG result received from Respiratory and relayed to Dr. Lopez along with CXR results. Oxygen increased to 2.5L Nasal Cannula and patient given incentive spirometer and education provided on its use.
[2019-05-24] MEDS ORDERED: LEVOFLOXACIN 500 MG/D5W 500 MG in PREMIXED 1 EACH IV SCH (11:00)
[2019-05-24] MEDS: ALBUTEROL SULFATE 2.5 MG/ 0.5 ML NEBU NEB PRN ×2 (11:32→16:49)
[2019-05-24] MEDS ORDERED: DEXTROSE 50% 50 ML DISP.SYRIN IV PRN (13:30)
[2019-05-24] MEDS ORDERED: INSULIN REGULAR, HUMAN 300 UNIT/3 ML VIAL SQ PRN (13:30)
[2019-05-24] MEDS ORDERED: HYDROMORPHONE 2 MG/1 ML DISP.SYRIN IV ONE (13:30)
--- NOTE | 2019-05-24 14:30 | NUR ---
Patient ambulated without difficulty throughout unit. Patient tolerated well.
[2019-05-24] MEDS ORDERED: BLOOD SUGAR DIAGNOSTIC 1 EACH STRIP VI SCH (16:30)
[2019-05-24] MEDS ORDERED: METO-295 PO (16:53)
[2019-05-24] MEDS ORDERED: LEVO500T2 PO (16:53)
--- NOTE | 2019-05-24 17:45 | NUR ---
Patient was given discharge instructions, IV removed, and follow up appointment made with forensic document examiner. Belongings were accounted for and prescription provided to patient. Copy in the chart. All of the patient's questions were answered and patient is awaiting bean picker machine operator. Patient's vitals are stable, no distress noted upon discharge.
== END 2019-05-24 17:45 | disposition home or self-care (01) | DRG 438 ==
LOC: ER 16:29 → CCU 22:01
PROVIDERS: ADMIT Internal Medicine; ATTEND Internal Medicine
DX: K85.80 Other acute pancreatitis without necrosis or infection (principal); J69.0 Pneumonitis due to inhalation of food and vomit; E87.1 Hypo-osmolality and hyponatremia; K86.1 Other chronic pancreatitis; E11.65 Type 2 diabetes mellitus with hyperglycemia; E78.1 Pure hyperglyceridemia; E66.9 Obesity, unspecified; Z68.36 Body mass index [BMI] 36.0-36.9, adult; E11.43 Type 2 diabetes mellitus with diabetic autonomic (poly)neuropathy; K31.84 Gastroparesis; Z87.440 Personal history of urinary (tract) infections; G89.29 Other chronic pain; M47.9 Spondylosis, unspecified; Z79.82 Long term (current) use of aspirin; Z79.4 Long term (current) use of insulin; K42.9 Umbilical hernia without obstruction or gangrene; I25.10 Atherosclerotic heart disease of native coronary artery without angina pectoris; I10 Essential (primary) hypertension; D63.8 Anemia in other chronic diseases classified elsewhere; E78.49 Other hyperlipidemia; E83.42 Hypomagnesemia; K86.81 Exocrine pancreatic insufficiency
CPT/HCPCS: 36415; 36600; 70030-TC; 71045; 80307; 83690; 83735; 84100; 84478; 85025; 87086; 93005; 94640; 94664; A4663; C9113; G0378; G0480; J0696; J1170; J1815; J1885; J1956; J2405; J3475; J3480; J3490; J7030; J7042; J7050; J7070

== ENCOUNTER 2019-07-21 00:20 | Inpatient (IN) | payer MEDICARE, OTHER ==
[2019-07-21] VITALS (14 sets, daily range): BP systolic 106–165; BP diastolic 67–111
[~2019-07-21] VITALS: Ht 172.7 cm; Wt 99.8 kg
[~2019-07-21 00:20] MED LIST changes: +AMLO5TAB9 PO; +BENZ-13 PO; +DEXL60CA3 PO; +EMPA25TA PO; +ERGO500040 PO; -EZET10TA15 PO; +EZET10TA32 PO; -FENO145T37 PO; +GABA-534 PO; +GEMF600T5 PO; +GLIM4TAB37 PO; +HYDR-3326 PO; -HYDR-4354 PO; -INSU100C SUBCUT; +INSU500I SQ; +LEVO500T2 PO; -LOSA50TA39 PO; +MECL-159 PO; +METO-295 PO; +METO-356 PO; -OMEGA 3 PO; +PIOG15TA8 PO
--- NOTE | 2019-07-21 00:35 | NUR ---
Patient walked into ER c/o intermitten CP for 2 days but constant in the last several hours. Addendum: 07/21/19 at [email or web address] Lopez speaking with Dr Serrato tactical deception plans officer for [facility] panel.
--- NOTE | 2019-07-21 00:41 | NUR ---
Dr Lopez into eval patient.
[2019-07-21] MEDS ORDERED: ONDANSETRON 4 MG/2 ML VIAL ONE (00:58)
[2019-07-21] MEDS ORDERED: HYDROMORPHONE 1 MG/1 ML DISP.SYRIN ONE ×3 (00:58→06:26)
[2019-07-21] MEDS ORDERED: HYDROMORPHONE 1 MG/1 ML DISP.SYRIN IV ONE ×3 (01:00→06:30)
[2019-07-21] MEDS ORDERED: IV NORMAL SALINE 1000 ML BAG IV ONE ×2 (01:00→03:15)
[2019-07-21] MEDS ORDERED: ONDANSETRON 4 MG/2 ML VIAL IV ONE (01:00)
[2019-07-21 01:05] LABS: BASOPHILS # (AUTO) 0.1 K/uL (0.0-8.0); EOSINOPHILS # (AUTO) 0.3 K/uL (0.0-0.7); MONOCYTES # (AUTO) 0.5 K/uL (2.0-10.0)
[2019-07-21 01:07] LABS: CARBON DIOXIDE 23 mmol/L (21-32); CHLORIDE 94 mmol/L (98-107); CREATININE 0.9 mg/dL (0.6-1.3); POTASSIUM 3.7 mmol/L (3.5-5.1); UREA NITROGEN, BLOOD 14 mg/dL (7-18)
[2019-07-21 01:11] LABS: GLUCOSE 429 mg/dL (74-106)
[2019-07-21 01:19] LABS: *BILIRUBIN,URIN NEGATIVE (NEGATIVE); *COLOR,URINE YELLOW (YELLOW); *KETONES,URINE TRACE (NEGATIVE); *UROBILINOGEN,URINE 0.2 E.U./dl (NORMAL); LEUKOCYTE ESTERASE ,URINE 1+ (NEGATIVE); NITRITE, URINE NEGATIVE (NEGATIVE); PH,URINE 5.5 (5.0-8.0); UGLUCOSE 2+ (NEGATIVE)
[2019-07-21 01:23] LABS: BASOPHILS % (AUTO) 1.3 % (0.0-2.0); EOSINOPHILS % (AUTO) 3.5 % (0.0-7.0); HEMATOCRIT 35.1 % (36.7-47.1); HEMOGLOBIN 11.9 g/dL (12.5-16.3); LYMPHOCYTES # (AUTO) 2.9 K/uL (20.0-40.0); LYMPHOCYTES % (AUTO) 35.5 % (20.5-51.5); MEAN CORPUSCULAR HEMOGLOBIN 29.1 uug (23.8-33.4); MEAN CORPUSCULAR HGB CONC 34 g/dL (32.5-36.3); MEAN CORPUSCULAR VOLUME 86.2 fL (73.0-96.2); MONOCYTES % (AUTO) 6.1 % (0.0-11.0); NEUTROPHILS # (AUTO) 4.4 K/uL (1.8-8.9); NEUTROPHILS % (AUTO) 53.6 % (38.5-71.5); PLATELET COUNT (AUTO) 368 K/uL (152-348); RED BLOOD CELL COUNT(AUTO) 4.08 MIL/uL (4.06-5.63); WHITE BLOOD COUNT (AUTO) 8.2 K/uL (3.6-10.2)
[2019-07-21 01:44] LABS: *BLOOD, URINE TRACE (NEGATIVE); *CLARITY,URINE HAZY (CLEAR)
[2019-07-21 01:45] LABS: BACTERIA,URINE FEW /HPF (NONE SEEN); SQUAMOUS EPITHELIAL CELL,UR MANY /HPF (NONE SEEN); YEAST,URINE MODERATE /HPF (NONE SEEN)
[2019-07-21 02:18] LABS: ALANINE AMINOTRANSFERASE 30 U/L (16-63); ALKALINE PHOSPHATASE 72 U/L (50-136); ASPARTATE AMINOTRANSFERASE 14 U/L (15-37); BILIRUBIN,DIRECT < 0.1 mg/dL (0.0-0.2); BILIRUBIN,TOTAL 0.5 mg/dL (0.2-1.0); LIPASE 44 U/L (73-393); TOTAL PROTEIN, SERUM 7.2 g/dL (6.4-8.2)
[2019-07-21] MEDS ORDERED: ONDANSETRON 4 MG/2 ML VIAL IV PRN (03:00)
[2019-07-21] MEDS ORDERED: MORPHINE SULFATE 2 MG/1 ML DISP.SYRIN IV PRN (03:00)
[2019-07-21] MEDS ORDERED: ACETAMINOPHEN 325 MG TABLET PO PRN (03:00)
[2019-07-21] MEDS ORDERED: MAGNESIUM HYDROXIDE 30 ML LIQUID UDC PO PRN (03:00)
[2019-07-21] MEDS ORDERED: HYDROCODONE/APAP 5-325MG TABLET PO PRN (03:00)
[2019-07-21] MEDS ORDERED: Z GUARD REMEDY PASTE 57 GM TUBE TOP PRN (03:00)
--- NOTE | 2019-07-21 03:00 | NUR ---
Dr Lopez spoke to Dr Serrato cardiac monitor technician [facility].
--- NOTE | 2019-07-21 03:24 | NUR ---
Accu check is 193. Dr Lopez made aware.
[2019-07-21] MEDS ORDERED: IV D5 1/2 NS 1000 ML 1,000 ML IV STA (03:25)
[2019-07-21] MEDS ORDERED: INSULIN REGULAR, HUMAN 300 UNIT/3 ML VIAL ONE (03:34)
[2019-07-21] MEDS ORDERED: DEXTROSE 50% 50 ML DISP.SYRIN ONE (03:34)
--- NOTE | 2019-07-21 03:40 | NUR ---
Started D5 1/2 NS at 200 ML/HR as ordered By Dr Lopez Prior to started insulin drip.
[2019-07-21] MEDS: INSULIN REGULAR, HUMAN 100 UNIT in IV NORMAL SALINE 99 ML IV PRN ×6 (04:03→13:24)
--- NOTE | 2019-07-21 04:04 | NUR ---
Started Insulin Drip per protocol at 10units/HR.Counter check infusion Rate with Barrington MCKAY.
[2019-07-21] MEDS ORDERED: DEXTROSE 50% 50 ML DISP.SYRIN IV ONE (04:30)
--- NOTE | 2019-07-21 05:00 | NUR ---
Patient laying on gurny with no distress noted.
[2019-07-21 07:14] LABS: BASOPHILS # (AUTO) 0.3 K/uL (0.0-8.0); BASOPHILS % (AUTO) 3.6 % (0.0-2.0); EOSINOPHILS # (AUTO) 0.3 K/uL (0.0-0.7); EOSINOPHILS % (AUTO) 3.6 % (0.0-7.0); HEMATOCRIT 33.4 % (36.7-47.1); HEMOGLOBIN 12.5 g/dL (12.5-16.3); LYMPHOCYTES # (AUTO) 2.8 K/uL (20.0-40.0); LYMPHOCYTES % (AUTO) 40.6 % (20.5-51.5); MEAN CORPUSCULAR HEMOGLOBIN 32.7 uug (23.8-33.4); MEAN CORPUSCULAR HGB CONC 38 g/dL (32.5-36.3); MEAN CORPUSCULAR VOLUME 87.1 fL (73.0-96.2); MONOCYTES # (AUTO) 0.7 K/uL (2.0-10.0); MONOCYTES % (AUTO) 9.3 % (0.0-11.0); NEUTROPHILS % (AUTO) 42.9 % (38.5-71.5); PLATELET COUNT (AUTO) 337 K/uL (152-348); RED BLOOD CELL COUNT(AUTO) 3.83 MIL/uL (4.06-5.63)
--- NOTE | 2019-07-21 07:54 | NUR ---
Patient in bed at lowest position, NAD, VSS
[2019-07-21 08:07] LABS: ALANINE AMINOTRANSFERASE 24 U/L (16-63); ALKALINE PHOSPHATASE 59 U/L (50-136); ASPARTATE AMINOTRANSFERASE 14 U/L (15-37); BILIRUBIN,TOTAL 0.4 mg/dL (0.2-1.0); CARBON DIOXIDE 24 mmol/L (21-32); CHLORIDE 101 mmol/L (98-107); CREATININE 0.6 mg/dL (0.6-1.3); GLUCOSE 200 mg/dL (74-106); POTASSIUM 3.5 mmol/L (3.5-5.1); TOTAL PROTEIN, SERUM 6.5 g/dL (6.4-8.2); UREA NITROGEN, BLOOD 13 mg/dL (7-18)
[2019-07-21 08:15] LABS: LIPASE 35 U/L (73-393)
--- NOTE | 2019-07-21 10:06 | NUR ---
Patient transported to CCU in stable condition.
--- NOTE | 2019-07-21 10:10 | NUR ---
Received patient on insulin drip 1.5units/hr and d51/2 ns @150cc/hr, sinus tachycardia, room air. Patient transferred to bed, vitals taken and oriented to unit. patient reports increasing epigastric pain.
[2019-07-21] MEDS: IV 1/2NS 1000 ML 1,000 ML IV PRN ×2 (10:47→11:13)
[2019-07-21] MEDS ORDERED: HYDROMORPHONE 1 MG/1 ML DISP.SYRIN IV PRN (11:00)
[2019-07-21] MEDS: BLOOD SUGAR DIAGNOSTIC 1 EACH STRIP VI SCH ×9 (11:11→23:25)
[2019-07-21] MEDS ORDERED: METOCLOPRAMIDE HCL 10 MG/2 ML VIAL IV PRN (12:15)
[2019-07-21] MEDS: PANTOPRAZOLE SODIUM 40 MG VIAL IV SCH (12:43)
[2019-07-21] MEDS: AMLODIPINE 5 MG TABLET PO SCH (12:44)
[2019-07-21] MEDS: GABAPENTIN 300 MG CAPSULE PO SCH ×2 (12:44→21:18)
[2019-07-21] MEDS: ASPIRIN EC 81 MG TABLET.DR PO SCH (12:44)
[2019-07-21] MEDS: GEMFIBROZIL 600 MG TABLET PO SCH ×2 (12:45→21:18)
[2019-07-21] MEDS: FLUOXETINE HCL 10 MG CAPSULE PO SCH (12:45)
[2019-07-21] MEDS: METOPROLOL SUCCINATE XL 25 MG TAB.SR.24H PO SCH (12:45)
[2019-07-21] MEDS: IV D5 1/2 NS 1000 ML 1,000 ML IV PRN ×2 (12:46→23:27)
[2019-07-21] MEDS: HYDROMORPHONE 1 MG/1 ML DISP.SYRIN IV PRN ×3 (14:52→21:43)
[2019-07-21] MEDS: CLONIDINE HCL 0.1 MG TABLET PO PRN (14:55)
--- NOTE | 2019-07-21 15:23 | NUR ---
Patient put on oxygen 2L as he was desaturating to 87%, Incentive spirometer given and instruction provided on how to use.
--- NOTE | 2019-07-21 19:31 | NUR ---
Report given to tomer. patient on insulin drip 1unit/hr, d51/2ns @90cc/hr. 2L nasal cannula, patient resting comfortable in bed.
[2019-07-22] VITALS (24 sets, daily range): BP systolic 101–158; BP diastolic 60–106
[2019-07-22] MEDS: HYDROMORPHONE 1 MG/1 ML DISP.SYRIN IV PRN ×7 (00:12→22:58)
[2019-07-22] MEDS: BLOOD SUGAR DIAGNOSTIC 1 EACH STRIP VI SCH ×12 (01:04→23:04)
[2019-07-22 05:05] LABS: BASOPHILS # (AUTO) 0.1 K/uL (0.0-8.0); BASOPHILS % (AUTO) 1.1 % (0.0-2.0); EOSINOPHILS # (AUTO) 0.3 K/uL (0.0-0.7); EOSINOPHILS % (AUTO) 4.5 % (0.0-7.0); HEMATOCRIT 32.6 % (36.7-47.1); HEMOGLOBIN 11.3 g/dL (12.5-16.3); LYMPHOCYTES % (AUTO) 46.8 % (20.5-51.5); MEAN CORPUSCULAR HEMOGLOBIN 29.3 uug (23.8-33.4); MEAN CORPUSCULAR HGB CONC 35 g/dL (32.5-36.3); MEAN CORPUSCULAR VOLUME 85.1 fL (73.0-96.2); MONOCYTES # (AUTO) 0.4 K/uL (2.0-10.0); MONOCYTES % (AUTO) 6.1 % (0.0-11.0); NEUTROPHILS # (AUTO) 2.7 K/uL (1.8-8.9); NEUTROPHILS % (AUTO) 41.5 % (38.5-71.5); PLATELET COUNT (AUTO) 265 K/uL (152-348); RED BLOOD CELL COUNT(AUTO) 3.84 MIL/uL (4.06-5.63); WHITE BLOOD COUNT (AUTO) 6.4 K/uL (3.6-10.2)
[2019-07-22 05:47] LABS: BILIRUBIN,TOTAL 0.3 mg/dL (0.2-1.0); CREATININE 0.7 mg/dL (0.6-1.3); MAGNESIUM 1.4 mg/dL (1.8-2.4); PHOSPHOROUS 3.8 mg/dL (2.5-4.9); POTASSIUM 3.5 mmol/L (3.5-5.1); TOTAL PROTEIN, SERUM 6.4 g/dL (6.4-8.2)
[2019-07-22] MEDS: METOPROLOL SUCCINATE XL 25 MG TAB.SR.24H PO SCH (08:39)
[2019-07-22] MEDS: PANTOPRAZOLE SODIUM 40 MG VIAL IV SCH (08:39)
[2019-07-22] MEDS: FLUOXETINE HCL 10 MG CAPSULE PO SCH (08:39)
[2019-07-22] MEDS: GEMFIBROZIL 600 MG TABLET PO SCH ×2 (08:41→21:07)
[2019-07-22] MEDS: AMLODIPINE 5 MG TABLET PO SCH (08:41)
[2019-07-22] MEDS: EZETIMIBE 10 MG TABLET PO SCH (08:41)
[2019-07-22] MEDS: ASPIRIN EC 81 MG TABLET.DR PO SCH (08:41)
[2019-07-22] MEDS: GABAPENTIN 300 MG CAPSULE PO SCH ×2 (09:07→21:07)
[2019-07-22] MEDS: INSULIN REGULAR, HUMAN 100 UNIT in IV NORMAL SALINE 99 ML IV PRN ×2 (11:02)
[2019-07-22] MEDS: IV D5 1/2 NS 1000 ML 1,000 ML IV PRN (11:10)
[2019-07-22] MEDS: CLONIDINE HCL 0.1 MG TABLET PO PRN (15:05)
[2019-07-22] MEDS: MAGNESIUM SULFATE/D5W 100 ML IV SCH ×4 (15:06→19:24)
[2019-07-22] MEDS: CEFTRIAXONE 1 G in IV DEXTROSE 5% 50 ML IV SCH (19:17)
[2019-07-22] MEDS: FLUCONAZOLE 200 MG/NS 100ML IV 100 MG in PREMIXED 1 EACH IV SCH (19:42)
[2019-07-23] VITALS (14 sets, daily range): BP systolic 104–139; BP diastolic 58–96
[2019-07-23] MEDS: BLOOD SUGAR DIAGNOSTIC 1 EACH STRIP VI SCH ×9 (01:30→20:15)
[2019-07-23] MEDS: IV D5 1/2 NS 1000 ML 1,000 ML IV PRN ×2 (01:32→18:47)
[2019-07-23] MEDS: HYDROMORPHONE 1 MG/1 ML DISP.SYRIN IV PRN ×6 (02:10→20:51)
[2019-07-23 05:04] LABS: BASOPHILS # (AUTO) 0.1 K/uL (0.0-8.0); BASOPHILS % (AUTO) 1.4 % (0.0-2.0); EOSINOPHILS # (AUTO) 0.3 K/uL (0.0-0.7); EOSINOPHILS % (AUTO) 4.6 % (0.0-7.0); HEMATOCRIT 34.8 % (36.7-47.1); HEMOGLOBIN 11.7 g/dL (12.5-16.3); LYMPHOCYTES # (AUTO) 2.3 K/uL (20.0-40.0); LYMPHOCYTES % (AUTO) 39.2 % (20.5-51.5); MEAN CORPUSCULAR HEMOGLOBIN 28.9 uug (23.8-33.4); MEAN CORPUSCULAR HGB CONC 34 g/dL (32.5-36.3); MEAN CORPUSCULAR VOLUME 86.2 fL (73.0-96.2); MONOCYTES # (AUTO) 0.4 K/uL (2.0-10.0); MONOCYTES % (AUTO) 7.2 % (0.0-11.0); NEUTROPHILS # (AUTO) 2.8 K/uL (1.8-8.9); NEUTROPHILS % (AUTO) 47.6 % (38.5-71.5); PLATELET COUNT (AUTO) 293 K/uL (152-348); RED BLOOD CELL COUNT(AUTO) 4.04 MIL/uL (4.06-5.63); WHITE BLOOD COUNT (AUTO) 5.9 K/uL (3.6-10.2)
[2019-07-23 05:07] LABS: CREATININE 0.7 mg/dL (0.6-1.3); POTASSIUM 3.8 mmol/L (3.5-5.1)
[2019-07-23] MEDS: GABAPENTIN 300 MG CAPSULE PO SCH ×2 (08:47→20:10)
[2019-07-23] MEDS: ASPIRIN EC 81 MG TABLET.DR PO SCH (08:47)
[2019-07-23] MEDS: PANTOPRAZOLE SODIUM 40 MG VIAL IV SCH (08:47)
[2019-07-23] MEDS: AMLODIPINE 5 MG TABLET PO SCH (08:50)
[2019-07-23] MEDS: FLUOXETINE HCL 10 MG CAPSULE PO SCH (08:51)
[2019-07-23] MEDS: EZETIMIBE 10 MG TABLET PO SCH (08:51)
[2019-07-23] MEDS: METOPROLOL SUCCINATE XL 25 MG TAB.SR.24H PO SCH (08:52)
[2019-07-23] MEDS: GEMFIBROZIL 600 MG TABLET PO SCH (08:53)
[2019-07-23] MEDS: INSULIN REGULAR, HUMAN 100 UNIT in IV NORMAL SALINE 99 ML IV PRN ×2 (11:05)
--- NOTE | 2019-07-23 16:16 | NUR ---
Spoke with Dr. Reeves on the telephone. Full report given. okay to downgrade pt to telemetry status.
[2019-07-23] MEDS: CEFTRIAXONE 1 G in IV DEXTROSE 5% 50 ML IV SCH (17:28)
--- NOTE | 2019-07-23 17:35 | NUR ---
Full telephone SBAR report given to WOODY Condon.
[2019-07-23] MEDS ORDERED: DEXTROSE 50% 50 ML DISP.SYRIN IV PRN (18:30)
[2019-07-23] MEDS ORDERED: INSULIN REGULAR, HUMAN 300 UNITS/3 ML VIAL SQ PRN (18:30)
--- NOTE | 2019-07-23 18:42 | NUR ---
Pt brought up to 315-T via wheelchair with automotive service professional. YULISA godlman. All belongings reviewed and brought with the pt. Pt stable and nad noted upon transfer.
--- NOTE | 2019-07-23 19:20 | NUR ---
Received patient lying in bed. AAOX4. In no acute distress. Denies any SOB. Sinus tachy on tele at 110/min. Right FA IV site and left hand IV site intact and patent. IVF infusing on left hand. Needs assessed and attended to. Safety measure initiated and call canas within reached.
--- NOTE | 2019-07-23 19:30 | NUR ---
RECEIVED PATIENT BY W/CHAIR TO ROOM 315 PLACED INTO BED FIXED AND MADE COMFORTABLE PATIENT IS ALERT AND ORIENTED DENIES PAIN OR DISCOMFORTS AT THIS TIME .TELE IS SR IVF CONNECTED ORDERED PATIENT ORIENTED TO ROOM AND FACILITY NOT IN DISTRESS AT THIS TIME WILL CONTINUE TO OBSERVE.
[2019-07-23] MEDS: FLUCONAZOLE 200 MG/NS 100ML IV 100 MG in PREMIXED 1 EACH IV SCH (20:10)
[2019-07-23] MEDS ORDERED: INSULIN GLARGINE,HUM 300 UNITS/3 ML CARTRIDGE SQ SCH (21:00)
[2019-07-24] VITALS: BP 125/72
[2019-07-24] MEDS: HYDROMORPHONE 1 MG/1 ML DISP.SYRIN IV PRN ×4 (00:01→10:14)
[2019-07-24 04:00] VITALS: BP 137/94
--- NOTE | 2019-07-24 06:29 | NUR ---
AAOX4. In no acute distress. Denies any SOB. Patient given Dilaudid PRN per order for complain of pain and effective. NSR on tele at 90/min. Right FA IV site and left hand IV site intact and patent. IVF infusing on left hand. No adverse reaction noted from IV Diflucan.Needs assessed and attended to. Safety measure maintained and call canas within reached
[2019-07-24] MEDS: BLOOD SUGAR DIAGNOSTIC 1 EACH STRIP VI SCH ×2 (06:31→11:51)
[2019-07-24 06:44] LABS: BASOPHILS % (AUTO) 0.5 % (0.0-2.0); EOSINOPHILS # (AUTO) 0.3 K/uL (0.0-0.7); EOSINOPHILS % (AUTO) 4.5 % (0.0-7.0); HEMOGLOBIN 12.5 g/dL (12.5-16.3); LYMPHOCYTES # (AUTO) 1.7 K/uL (20.0-40.0); LYMPHOCYTES % (AUTO) 22.7 % (20.5-51.5); MEAN CORPUSCULAR HEMOGLOBIN 29.4 uug (23.8-33.4); MEAN CORPUSCULAR HGB CONC 34 g/dL (32.5-36.3); MEAN CORPUSCULAR VOLUME 87.2 fL (73.0-96.2); MONOCYTES # (AUTO) 0.6 K/uL (2.0-10.0); MONOCYTES % (AUTO) 8.3 % (0.0-11.0); NEUTROPHILS # (AUTO) 4.9 K/uL (1.8-8.9); PLATELET COUNT (AUTO) 302 K/uL (152-348); RED BLOOD CELL COUNT(AUTO) 4.24 MIL/uL (4.06-5.63)
[2019-07-24 06:53] LABS: WHITE BLOOD COUNT (AUTO) 7.6 K/uL (3.6-10.2)
[2019-07-24] MEDS ORDERED: PANTOPRAZOLE SODIUM 40 MG TABLET.DR PO SCH (07:00)
[2019-07-24] MEDS: IV D5 1/2 NS 1000 ML 1,000 ML IV PRN (07:02)
[2019-07-24 07:06] LABS: CREATININE 0.7 mg/dL (0.6-1.3); MAGNESIUM 1.5 mg/dL (1.8-2.4); PHOSPHOROUS 3.8 mg/dL (2.5-4.9); POTASSIUM 3.5 mmol/L (3.5-5.1)
--- NOTE | 2019-07-24 07:30 | NUR ---
RECEIVED PATIENT IN BED AWAKE ALERT AND ORIENTED STATED COMFORTABLE AT THIS TIME REMAIN ON IVF ORDERED WITH NO S/S OF INFILTERATION ON SITE NO S/S OF HYPERGLYCEMIC REACTIONS AT THIS TIME.CALL LIGHTS AND PERSONAL BELONGINGS ARE WITHIN EASY REACH AT THIS TIME WILL CONTINUE TO OBSERVE.
[2019-07-24] MEDS: INSULIN REGULAR, HUMAN 300 UNIT/3 ML VIAL SQ PRN ×2 (07:48→12:30)
[2019-07-24] MEDS: ASPIRIN EC 81 MG TABLET.DR PO SCH (08:29)
[2019-07-24] MEDS: FLUOXETINE HCL 10 MG CAPSULE PO SCH (08:29)
[2019-07-24] MEDS: EZETIMIBE 10 MG TABLET PO SCH (08:29)
[2019-07-24] MEDS: GABAPENTIN 300 MG CAPSULE PO SCH (08:29)
[2019-07-24] MEDS: AMLODIPINE 5 MG TABLET PO SCH (08:30)
[2019-07-24] MEDS: METOPROLOL SUCCINATE XL 25 MG TAB.SR.24H PO SCH (08:33)
[2019-07-24] MEDS ORDERED: GLIMEPIRIDE 4 MG TABLET PO SCH (09:00)
[2019-07-24] MEDS ORDERED: GEMFIBROZIL 600 MG TABLET PO SCH (09:00)
[2019-07-24 11:26] VITALS: BP 138/95
[2019-07-24] MEDS ORDERED: MAGNESIUM SULFATE/D5W 100 ML IV SCH (11:45)
[2019-07-24] MEDS ORDERED: MAGNESIUM OXIDE 400 MG TABLET PO ONE (12:30)
--- NOTE | 2019-07-24 12:32 | NUR ---
PATIENT SEEN AND EXAMINED BY MERCY FRIEDMAN STATED WILL DISCHARGE PATIENT HOME TODAY STATED WILL CHANGE THE SECOND BAG OF MAGNESSIUM TO ORAL AND WILL CHANGE HIS DIET ORDER TO REGULAR FOOD CONSISTENCY FROM FULL LIQUIDS PATIENT AWARE.
[2019-07-24] MEDS ORDERED: CEPH-570 PO (15:35)
[2019-07-24] MEDS ORDERED: FLUO10CA27 PO (15:35)
[2019-07-24] MEDS ORDERED: FLUC200T PO (15:35)
[2019-07-24 15:50] VITALS: BP 125/77
--- NOTE | 2019-07-24 16:18 | NUR ---
PATIENT DISCHARGED PICKED UP BY HIS SISTER GABBY IN SATISFACTORY CONDITION WITH DISCHARGE INSTRUCTIONS PATIENT INSTRUCTED TO CONTINUE WITH HIS ANTIBIOTICS ORDERED AND TO FOLLOW UP WITH HIS PRIMARY FOR A REFERRAL TO A PAIN MANAGEMENT CLINIC PATIENT ALSO INSTRUCTED THAT HIS MEDICATIONS WAS ELECTRONICALLY SENT TO HIS PHARMACY NEED TO PICK IT UP AND HE EXPRESSED UNDERSTANDING.
--- NOTE | 2019-07-24 17:06 | NUR ---
late note: dilaudid 0.5mg at 1059 not given at that time. Addendum: 07/24/19 at 1711 by DEVANG LEDESMA RN on date 07/22.
== END 2019-07-24 16:18 | disposition home or self-care (01) | DRG 637 ==
LOC: ER 00:24 → CCU 09:34 → TELE3 07-23 18:42 → MEDSURG3 07-24 14:36
PROVIDERS: ADMIT Internal Medicine; ATTEND Internal Medicine
DX: E11.65 Type 2 diabetes mellitus with hyperglycemia (principal); K85.80 Other acute pancreatitis without necrosis or infection; K86.1 Other chronic pancreatitis; B48.8 Other specified mycoses; B37.49 Other urogenital candidiasis; F11.20 Opioid dependence, uncomplicated; E87.1 Hypo-osmolality and hyponatremia; E78.1 Pure hyperglyceridemia; E78.49 Other hyperlipidemia; K86.81 Exocrine pancreatic insufficiency; E78.5 Hyperlipidemia, unspecified; F32.9 Major depressive disorder, single episode, unspecified; I25.10 Atherosclerotic heart disease of native coronary artery without angina pectoris; K76.0 Fatty (change of) liver, not elsewhere classified; I44.4 Left anterior fascicular block; I10 Essential (primary) hypertension; B96.89 Other specified bacterial agents as the cause of diseases classified elsewhere; G89.4 Chronic pain syndrome; Z82.49 Family history of ischemic heart disease and other diseases of the circulatory system; Z83.438 Family history of other disorder of lipoprotein metabolism and other lipidemia; Z83.3 Family history of diabetes mellitus; E66.9 Obesity, unspecified; Z68.39 Body mass index [BMI] 39.0-39.9, adult; Z79.4 Long term (current) use of insulin; Z79.82 Long term (current) use of aspirin
CPT/HCPCS: 36415; 70030-TC; 71045; 83690; 83735; 84100; 84478; 85025; 87086; 93005; A4663; C9113; G0378; J0696; J1170; J1450; J1815; J2405; J3475; J3490; J7030; J7060

== ENCOUNTER 2019-08-22 23:13 | Inpatient (IN) | payer MEDICARE, OTHER ==
[~2019-08-22] VITALS: Ht 172.7 cm; Wt 98.6 kg
[2019-08-22] MEDS ORDERED: IV NORMAL SALINE 1000 ML BAG IV ONE (23:45)
[2019-08-22 23:59] LABS: BASOPHILS # (AUTO) 0.1 K/uL (0.0-8.0); BASOPHILS % (AUTO) 0.7 % (0.0-2.0); EOSINOPHILS # (AUTO) 0.2 K/uL (0.0-0.7); EOSINOPHILS % (AUTO) 2.3 % (0.0-7.0); HEMATOCRIT 39.5 % (36.7-47.1); HEMOGLOBIN 13.7 g/dL (12.5-16.3); LYMPHOCYTES # (AUTO) 2.6 K/uL (20.0-40.0); LYMPHOCYTES % (AUTO) 35.6 % (20.5-51.5); MEAN CORPUSCULAR HEMOGLOBIN 30.1 uug (23.8-33.4); MEAN CORPUSCULAR HGB CONC 35 g/dL (32.5-36.3); MEAN CORPUSCULAR VOLUME 86.8 fL (73.0-96.2); MONOCYTES # (AUTO) 0.5 K/uL (2.0-10.0); MONOCYTES % (AUTO) 7.4 % (0.0-11.0); NEUTROPHILS # (AUTO) 3.9 K/uL (1.8-8.9); PLATELET COUNT (AUTO) 372 K/uL (152-348); RED BLOOD CELL COUNT(AUTO) 4.54 MIL/uL (4.06-5.63); WHITE BLOOD COUNT (AUTO) 7.2 K/uL (3.6-10.2)
[2019-08-23] MEDS ORDERED: ONDANSETRON 4 MG/2 ML VIAL IV ONE
[2019-08-23] MEDS ORDERED: HYDROMORPHONE 2 MG/1 ML DISP.SYRIN ONE (00:02)
[2019-08-23 00:15] LABS: ALKALINE PHOSPHATASE 62 U/L (50-136); BILIRUBIN,DIRECT < 0.1 mg/dL (0.0-0.2); BILIRUBIN,TOTAL 0.6 mg/dL (0.2-1.0); CARBON DIOXIDE 28 mmol/L (21-32); CHLORIDE 88 mmol/L (98-107); CREATININE 1.2 mg/dL (0.6-1.3); POTASSIUM 4.3 mmol/L (3.5-5.1); TOTAL PROTEIN, SERUM 7.3 g/dL (6.4-8.2); UREA NITROGEN, BLOOD 15 mg/dL (7-18)
[2019-08-23 00:19] LABS: GLUCOSE 669 mg/dL (74-106)
[2019-08-23 00:40] LABS: ABG BASE EXCESS -0.3 mmol/L; ABG HCO3 24.9 mmol/L; ABG PCO2 42.7 mmHg (35.0-45.0); ABG PH 7.383 (7.350-7.450); ABG PO2 61.3 mmHg (75.0-100.0); ABG SITE LEFT BRACHIAL; ABG TOTAL HEMOGLOBIN 12.9 G/dL (13.5-18.0); COHb 1.4 % (0.5-1.5); MetHb 0.1 % (0.0-1.5); O2Hb 89.2 % (94.0-97.0); VENT MODE ROOM AIR
--- NOTE | 2019-08-23 01:13 | NUR ---
PT CONTACT INFO: [phone]
[2019-08-23 01:28] LABS: ASPARTATE AMINOTRANSFERASE 10 U/L (15-37); LIPASE 45 U/L (73-393)
[2019-08-23 01:30] LABS: ALANINE AMINOTRANSFERASE 12 U/L (16-63)
[2019-08-23] MEDS ORDERED: HYDROMORPHONE 1 MG/1 ML DISP.SYRIN IV ONE ×2 (01:45)
[2019-08-23] MEDS ORDERED: ASPIRIN 81 MG TAB.CHEW PO ONE ×2 (01:45)
[2019-08-23 01:50] LABS: *BILIRUBIN,URIN NEGATIVE (NEGATIVE); *BLOOD, URINE NEGATIVE (NEGATIVE); *CLARITY,URINE CLEAR (CLEAR); *COLOR,URINE YELLOW (YELLOW); *KETONES,URINE NEGATIVE (NEGATIVE); *UROBILINOGEN,URINE 0.2 E.U./dl (NORMAL); LEUKOCYTE ESTERASE ,URINE NEGATIVE (NEGATIVE); NITRITE, URINE NEGATIVE (NEGATIVE)
[2019-08-23] MEDS ORDERED: HYDROMORPHONE 1 MG/1 ML DISP.SYRIN ONE (01:53)
[2019-08-23] MEDS ORDERED: ACETAMINOPHEN 325 MG TABLET PO PRN (02:00)
[2019-08-23] MEDS ORDERED: MAGNESIUM HYDROXIDE 30 ML LIQUID UDC PO PRN (02:00)
[2019-08-23] MEDS ORDERED: TEMAZEPAM 15 MG CAPSULE PO PRN (02:00)
[2019-08-23] MEDS ORDERED: Z GUARD REMEDY PASTE 57 GM TUBE TOP PRN (02:00)
[2019-08-23] MEDS ORDERED: MORPHINE SULFATE 2 MG/1 ML DISP.SYRIN IV PRN (02:00)
[2019-08-23] MEDS ORDERED: ONDANSETRON 4 MG/2 ML VIAL IV PRN (02:00)
[2019-08-23] MEDS ORDERED: DEXTROSE 50% 50 ML DISP.SYRIN IV PRN (02:15)
[2019-08-23] MEDS ORDERED: INSULIN REGULAR, HUMAN 300 UNITS/3 ML VIAL SQ PRN (02:15)
--- NOTE | 2019-08-23 02:20 | NUR ---
OK TO ADMIT UNDER COLLIN GOMES TELE RM DX: CHEST PAIN BELONGINGS LIST ACCOUNTED FOR
--- NOTE | 2019-08-23 02:27 | NUR ---
WOODY BURKS IS THE RECEIVING PLATE CORRECTOR HAND OFF AND SBAR GIVEN TO AVIAN KEEPER (JORGE)
[2019-08-23 02:32] LABS: UGLUCOSE 2+ (NEGATIVE)
[2019-08-23 02:36] LABS: BACTERIA,URINE NONE SEEN /HPF (NONE SEEN); RBC,URINE 0-3 /HPF (0-3); SQUAMOUS EPITHELIAL CELL,UR FEW /HPF (NONE SEEN)
[2019-08-23] MEDS ORDERED: INSULIN REGULAR, HUMAN 300 UNIT/3 ML VIAL IV ONE (02:45)
--- NOTE | 2019-08-23 03:59 | NUR ---
TRANSPORTED VIA [facility] BY MILLER ROD MILL
--- NOTE | 2019-08-23 04:00 | NUR ---
Admitted 39 y/o Male under the care of Jong FRIEDMAN. Dx: Chest pain r/o ACS. Patient is A&Ox4, noted ambulatory w/ steady gait. IV access on RAC 20g intact and patent w/ saline flush. Placed patient on Tele monitor noted w/ SR. Admission protocol initiated. Body assessment done. Safety measures observed. Call light in reach
[2019-08-23 04:07] VITALS: BP 132/91
[2019-08-23] MEDS: IV NS 1000 ML 1,000 ML IV PRN ×2 (04:15→15:09)
[2019-08-23] MEDS ORDERED: HYDROMORPHONE 1 MG/1 ML DISP.SYRIN IV PRN (04:30)
--- NOTE | 2019-08-23 04:30 | NUR ---
Patient complaining of 8/10 pain on his mid chest, nonradiating. Refused his PRN Morphine 4mg IV d/t S/E of bad headache and requested for Dilaudid instead. Informed Jong FRIEDMAN w/ order to d/c Morphine and start Dilaudid 0.5mg IV Q6 PRN.
[2019-08-23] MEDS: BLOOD SUGAR DIAGNOSTIC 1 EACH STRIP VI SCH ×4 (06:33→20:47)
--- NOTE | 2019-08-23 08:00 | NUR ---
RECEIVED PT RESTING IN BED. NO ACUTE DISTRESS OR SOB NOTED. PT DENIES PAIN AT THIS TIME. TELE SHOWS SINUS RHYTHM. BED LOCKED AND IN LOW POSITION. CALL LIGHT WITHIN REACH. WILL CONTINUE TO MONITOR FOR SAFETY AND COMFORT.
[2019-08-23] MEDS: INSULIN REGULAR, HUMAN 300 UNIT/3 ML VIAL SQ PRN ×3 (08:16→17:04)
[2019-08-23] MEDS ORDERED: ASPIRIN 81 MG TAB.CHEW PO SCH (09:00)
[2019-08-23] MEDS: PANTOPRAZOLE SODIUM 40 MG VIAL IV SCH (09:13)
[2019-08-23] MEDS ORDERED: KETOROLAC TROMETHAMINE 30 MG INJ IM PRN (10:45)
[2019-08-23 11:37] VITALS: BP 143/86
[2019-08-23] MEDS: HYDROCODONE/APAP 5-325MG TABLET PO PRN ×2 (13:25→19:32)
[2019-08-23] MEDS ORDERED: KETOROLAC TROMETHAMINE 30 MG INJ IVP PRN (14:00)
[2019-08-23 16:00] VITALS: BP 132/78
--- NOTE | 2019-08-23 17:55 | NUR ---
PT RESTING COMFORTABLY IN BED. NO ACUTE DISTRESS OR SOB NOTED. PAIN MANAGED WITH MEDS. TELE SINUS RHYTHM. PT ALERT AND ORIENTED X4. PLEASANT AND COOPERATIVE. DR CALVIN'José Luis DILAUDID AND ADDED TORADOL IM, WHICH SUBSEQUENTLY WAS CHANGED TO TORADOL IVP. PT STATES THAT THIS MEDICATION IS NOT ENOUGH FOR HIS CHEST PAIN MD AWARE. NO NEW ORDERS GIVEN. CALL LIGHT WITHIN REACH. BED LOCKED AND IN LOW POSITION. WILL GIVE REPORT ACCORDINGLY.
[2019-08-23] MEDS ORDERED: METOCLOPRAMIDE HCL 10 MG TABLET PO PRN (18:30)
[2019-08-23 20:00] VITALS: BP 145/93
--- NOTE | 2019-08-23 21:15 | NUR ---
Patient still complaining of 7/10 mid chest pain, nonradiating and verbalized that PRN Toradol and [place] are not working. Patient requesting for Dilaudid or Morphine. Informed allergist/pediatric pulmonologist Curry FRIEDMAN w/ n.o for Morphine 2mg IV Q4 PRN for severe pain. Patient made aware
[2019-08-23] MEDS: MORPHINE SULFATE 2 MG/1 ML DISP.SYRIN IV PRN (21:38)
[2019-08-24] VITALS: BP 128/74
[2019-08-24] MEDS: IV NS 1000 ML 1,000 ML IV PRN ×2 (01:38→11:32)
[2019-08-24] MEDS: MORPHINE SULFATE 2 MG/1 ML DISP.SYRIN IV PRN ×3 (01:38→11:36)
[2019-08-24 04:00] VITALS: BP 125/84
[2019-08-24 06:10] LABS: BASOPHILS % (AUTO) 0.6 % (0.0-2.0); EOSINOPHILS # (AUTO) 0.2 K/uL (0.0-0.7); EOSINOPHILS % (AUTO) 3.8 % (0.0-7.0); HEMATOCRIT 34.8 % (36.7-47.1); HEMOGLOBIN 12.1 g/dL (12.5-16.3); LYMPHOCYTES # (AUTO) 2.9 K/uL (20.0-40.0); LYMPHOCYTES % (AUTO) 45.6 % (20.5-51.5); MEAN CORPUSCULAR HEMOGLOBIN 29.4 uug (23.8-33.4); MEAN CORPUSCULAR HGB CONC 35 g/dL (32.5-36.3); MEAN CORPUSCULAR VOLUME 84.7 fL (73.0-96.2); MONOCYTES # (AUTO) 0.4 K/uL (2.0-10.0); NEUTROPHILS # (AUTO) 2.8 K/uL (1.8-8.9); PLATELET COUNT (AUTO) 279 K/uL (152-348); RED BLOOD CELL COUNT(AUTO) 4.11 MIL/uL (4.06-5.63); WHITE BLOOD COUNT (AUTO) 6.4 K/uL (3.6-10.2)
[2019-08-24 06:32] LABS: THYROID STIMULATING HORMONE 1.107 mIU/mL (0.358-3.740)
[2019-08-24 06:35] LABS: CREATININE 0.7 mg/dL (0.6-1.3); MAGNESIUM 1.9 mg/dL (1.8-2.4); PHOSPHOROUS 3.9 mg/dL (2.5-4.9); POTASSIUM 3.8 mmol/L (3.5-5.1)
--- NOTE | 2019-08-24 06:35 | NUR ---
Patient slept intermittently. c/o midchest pain, PRN Morphine 2mg IV given x 2 this shift. No SOB noted. IV access on RAC 20g intact and patent w/ IVF infusing. All needs attended. Will endorse accordingly
[2019-08-24] MEDS: BLOOD SUGAR DIAGNOSTIC 1 EACH STRIP VI SCH ×2 (06:48→11:22)
--- NOTE | 2019-08-24 07:25 | NUR ---
Patient In bed, awake and verbally responsive. No signs of distress noted. No SOB. Pain Medication Morphine 2mg IV, given as ordered for Mid chest Pain, Will give 12 units insulin for BS of 303. Kept clean and comfortable. Will continue to monitor.
[2019-08-24] MEDS: INSULIN REGULAR, HUMAN 300 UNIT/3 ML VIAL SQ PRN ×2 (07:44→12:30)
[2019-08-24] MEDS ORDERED: METFORMIN HCL 500 MG TABLET PO SCH (08:00)
[2019-08-24] MEDS: PANTOPRAZOLE SODIUM 40 MG VIAL IV SCH (08:37)
[2019-08-24] MEDS ORDERED: EZETIMIBE 10 MG TABLET PO SCH (09:00)
[2019-08-24] MEDS ORDERED: ASPIRIN EC 81 MG TABLET.DR PO SCH (09:00)
[2019-08-24] MEDS ORDERED: PIOGLITAZONE HCL 15 MG TABLET PO SCH (09:00)
[2019-08-24] MEDS ORDERED: METOPROLOL SUCCINATE XL 25 MG TAB.SR.24H PO SCH (09:00)
[2019-08-24] MEDS ORDERED: GABAPENTIN 300 MG CAPSULE PO SCH (09:00)
[2019-08-24] MEDS ORDERED: AMLODIPINE 5 MG TABLET PO SCH (09:00)
[2019-08-24] MEDS ORDERED: GLIMEPIRIDE 4 MG TABLET PO SCH (09:00)
[2019-08-24] MEDS ORDERED: GEMFIBROZIL 600 MG TABLET PO SCH ×2 (09:00→21:00)
[2019-08-24] MEDS ORDERED: FLUOXETINE HCL 10 MG CAPSULE PO SCH (09:00)
[2019-08-24] MEDS ORDERED: Medication Not On Formulary EA (Empagliflozin (Jardiance) 25 MG) PO SCH (09:00)
--- NOTE | 2019-08-24 10:15 | NUR ---
Patient with Order of cardiac CTA at [facility], Patient refused to go, and prefers to go Home. Dr. Zapien made aware.
[2019-08-24 11:22] VITALS: BP 151/99
--- NOTE | 2019-08-24 14:30 | NUR ---
Seen and examined by Dr. Zapien with Order to be discharge today. Patient is awake, alert and verbally responsive. No signs of distress noted. No complain of Pain or discomfort.last Blood sugar is 272, 9 units given per sliding scale. Discharge Instructions given to patient and verbalized Understanding. Removed gambling monitor, IV site and wrist band. All belongings signed and sent with Patient. Patient left in stable condition.
[2019-08-25] MEDS ORDERED: PANTOPRAZOLE SODIUM 40 MG TABLET.DR PO SCH (07:00)
== END 2019-08-24 14:30 | disposition home or self-care (01) | DRG 313 ==
LOC: ER 23:13 → TELE3 08-23 03:38
PROVIDERS: ADMIT Nurse Practitioner Acute Care; ATTEND Student in an Organized Health Care Education/Training Program
DX: R07.89 Other chest pain (principal); F11.20 Opioid dependence, uncomplicated; E11.65 Type 2 diabetes mellitus with hyperglycemia; Z79.4 Long term (current) use of insulin; G89.4 Chronic pain syndrome; E78.1 Pure hyperglyceridemia; I10 Essential (primary) hypertension; Z79.82 Long term (current) use of aspirin; Z83.3 Family history of diabetes mellitus; Z82.49 Family history of ischemic heart disease and other diseases of the circulatory system; Z83.438 Family history of other disorder of lipoprotein metabolism and other lipidemia; Z79.899 Other long term (current) drug therapy; E66.9 Obesity, unspecified; Z86.39 Personal history of other endocrine, nutritional and metabolic disease; Z87.19 Personal history of other diseases of the digestive system
CPT/HCPCS: 36415; 36600; 70030-TC; 71045; 83690; 83735; 84100; 84443; 85025; 87086; 93005; 93307; A4663; C9113; G0378; J1170; J1815; J1885; J2270; J2405; J7030

== ENCOUNTER 2019-12-15 19:57 | Emergency (ER) | payer MEDICARE, MEDICAID ==
[~2019-12-15] VITALS: Ht 170.2 cm; Wt 102.1 kg
[~2019-12-15 19:57] MED LIST changes: -BENZ-13 PO; -ERGO500040 PO; +FLUO10CA27 PO; -HYDR-3326 PO; -LEVO500T2 PO; -MECL-159 PO
--- NOTE | 2019-12-15 20:00 | NUR ---
Pt was brought to ER by family member. Ambulated in steady gait. AO x 4.Verbally responsive. Patient narrates that pain has been on adn off since last night and it is mostly towards the center of his chest and explains it as crushing pain. Pt immediately placed on monitor. EKG. VS recorded. Stable at this time. Side rails up x 2. Bed locked in position. Fall and safety precautions maintained.
--- NOTE | 2019-12-15 20:40 | NUR ---
Dr Bennett at bedside for MSE
[2019-12-15] MEDS ORDERED: IV NORMAL SALINE 1000 ML BAG IV ONE (20:45)
[2019-12-15] MEDS ORDERED: ONDANSETRON 4 MG/2 ML VIAL IV ONE (20:45)
[2019-12-15] MEDS ORDERED: PANTOPRAZOLE SODIUM 40 MG VIAL IV ONE (20:45)
[2019-12-15] MEDS ORDERED: PANTOPRAZOLE SODIUM 40 MG VIAL ONE (20:49)
[2019-12-15] MEDS ORDERED: ONDANSETRON 4 MG/2 ML VIAL ONE (20:49)
[2019-12-15 21:06] LABS: BASOPHILS # (AUTO) 0.1 K/uL (0.0-8.0); BASOPHILS % (AUTO) 1.6 % (0.0-2.0); EOSINOPHILS # (AUTO) 0.4 K/uL (0.0-0.7); EOSINOPHILS % (AUTO) 4.5 % (0.0-7.0); HEMATOCRIT 40.1 % (36.7-47.1); LYMPHOCYTES # (AUTO) 3.1 K/uL (20.0-40.0); LYMPHOCYTES % (AUTO) 36.9 % (20.5-51.5); MEAN CORPUSCULAR VOLUME 84.4 fL (73.0-96.2); MONOCYTES # (AUTO) 0.4 K/uL (2.0-10.0); MONOCYTES % (AUTO) 5.1 % (0.0-11.0); NEUTROPHILS # (AUTO) 4.3 K/uL (1.8-8.9); NEUTROPHILS % (AUTO) 51.9 % (38.5-71.5); PLATELET COUNT (AUTO) 390 K/uL (152-348); RED BLOOD CELL COUNT(AUTO) 4.75 MIL/uL (4.06-5.63)
[2019-12-15 21:36] LABS: HEMOGLOBIN 14.2 g/dL (12.5-16.3); MEAN CORPUSCULAR HEMOGLOBIN 29.8 uug (23.8-33.4)
[2019-12-15 21:37] LABS: MEAN CORPUSCULAR HGB CONC 35 g/dL (32.5-36.3); WHITE BLOOD COUNT (AUTO) 8.4 K/uL (3.6-10.2)
[2019-12-15 22:17] LABS: TOTAL PROTEIN, SERUM 7.6 g/dL (6.4-8.2)
[2019-12-15 22:24] LABS: BILIRUBIN,TOTAL 0.5 mg/dL (0.2-1.0)
[2019-12-15 22:25] LABS: BILIRUBIN,DIRECT 0.1 mg/dL (0.0-0.2)
[2019-12-15] MEDS ORDERED: MAG HYDROX/AL HYDROX/SIMETH 30 ML LIQUID UDC PO ONE (22:30)
[2019-12-15] MEDS ORDERED: OXYCODONE/APAP 5-325 MG TABLET PO ONE (22:30)
[2019-12-15] MEDS ORDERED: LIDOCAINE VISCUS 2% 15 ML UDC MM ONE (22:30)
[2019-12-15] MEDS ORDERED: MAG HYDROX/AL HYDROX/SIMETH 30 ML LIQUID UDC ONE (22:42)
[2019-12-15] MEDS ORDERED: OXYCODONE/APAP 5-325 MG TABLET ONE (22:42)
[2019-12-15] MEDS ORDERED: LIDOCAINE VISCUS 2% 15 ML UDC ONE (22:42)
[2019-12-15] MEDS ORDERED: INSULIN REGULAR, HUMAN 300 UNIT/3 ML VIAL IV ONE (22:45)
--- NOTE | 2019-12-15 23:11 | NUR ---
Pt down for CT, in stable condition via stretcher.
[2019-12-15] MEDS ORDERED: INSULIN REGULAR, HUMAN 300 UNIT/3 ML VIAL ONE (23:19)
--- NOTE | 2019-12-15 23:25 | NUR ---
Back from CT in stable condition.
[2019-12-15 23:54] LABS: *BILIRUBIN,URIN NEGATIVE (NEGATIVE); *BLOOD, URINE NEGATIVE (NEGATIVE); *COLOR,URINE YELLOW (YELLOW); *KETONES,URINE TRACE (NEGATIVE); *UROBILINOGEN,URINE 0.2 E.U./dl (NORMAL); LEUKOCYTE ESTERASE ,URINE 1+ (NEGATIVE); NITRITE, URINE NEGATIVE (NEGATIVE)
--- NOTE | 2019-12-15 23:54 | NUR ---
Pt remains resting in bed. Continued on Tele monitoring, Normal sinus rhythm at 94 at this time with rare ectopic beats. Chest pain is improving per patient but remains slightly uncomfortable in the middle of the chest. Side rails up x 2. All fall and safety precautions maintained. VS recorded, stable.
[2019-12-16 00:07] LABS: *CLARITY,URINE HAZY (CLEAR); UGLUCOSE 2+ (NEGATIVE)
[2019-12-16 00:14] LABS: BACTERIA,URINE FEW /HPF (NONE SEEN); RBC,URINE 0-3 /HPF (0-3); SQUAMOUS EPITHELIAL CELL,UR MODERATE /HPF (NONE SEEN)
--- NOTE | 2019-12-16 00:42 | NUR ---
Dr. Bennett at bedside and explained all the test results to patient. Patient discharged to home in stable condition. Written and verbal after care instructions given. Patient verbalizes understanding of instructions. Stressed follow up or return to ER for worsening s/s. IV removed. Catheter intact and site benign. Pressure and 4x4 gauze applied to site. No bleeding noted. Pt ambulated out of ER in stable condition.
[2019-12-16 01:06] VITALS: BP 136/91
== END 2019-12-16 01:00 | disposition home or self-care (01) ==
LOC: ER 20:01
DX: R10.13 Epigastric pain (principal); E78.1 Pure hyperglyceridemia; R00.0 Tachycardia, unspecified; E11.65 Type 2 diabetes mellitus with hyperglycemia; Z79.4 Long term (current) use of insulin; G89.4 Chronic pain syndrome; E66.9 Obesity, unspecified; Z79.82 Long term (current) use of aspirin; I10 Essential (primary) hypertension; I25.10 Atherosclerotic heart disease of native coronary artery without angina pectoris
CPT/HCPCS: 36415 ×2; 71045; 74176; 80048; 80076; 81001; 83690; 84443; 84484 ×2; 85025; 85730; 87086; 93005 ×2; 96361; 96372; 96374; 96375; 99285; C9113; J1815; J2405; 70030-TC; A4663; J7030

== ENCOUNTER 2020-11-17 20:35 | Inpatient (IN) | payer MEDICARE, OTHER ==
[~2020-11-17] VITALS: Ht 172.7 cm; Wt 103.2 kg
[~2020-11-17 20:35] MED LIST changes: +AMLO-212 PO; -AMLO5TAB9 PO; -FLUO10CA27 PO; +FLUO10CA29 PO; -GEMF600T5 PO; +GEMF600T90 PO
[2020-11-17] MEDS ORDERED: PANTOPRAZOLE SODIUM 40 MG VIAL IV ONE (21:00)
[2020-11-17] MEDS ORDERED: IV NORMAL SALINE 1000 ML BAG IV ONE ×2 (21:00→23:30)
[2020-11-17] MEDS ORDERED: ONDANSETRON 4 MG/2 ML VIAL IV ONE ×2 (21:00→23:30)
[2020-11-17] MEDS ORDERED: HYDROMORPHONE 1 MG/1 ML DISP.SYRIN IV ONE ×2 (21:00→23:30)
[2020-11-17] MEDS ORDERED: PANTOPRAZOLE SODIUM 40 MG VIAL ONE (21:02)
[2020-11-17] MEDS ORDERED: ONDANSETRON 4 MG/2 ML VIAL ONE ×2 (21:02→23:29)
[2020-11-17] MEDS ORDERED: HYDROMORPHONE 2 MG/1 ML DISP.SYRIN ONE ×2 (21:02→23:29)
[2020-11-17 21:03] LABS: BASOPHILS # (AUTO) 0.2 K/uL (0.0-8.0); BASOPHILS % (AUTO) 2.6 % (0.0-2.0); EOSINOPHILS # (AUTO) 0.3 K/uL (0.0-0.7); EOSINOPHILS % (AUTO) 3.9 % (0.0-7.0); HEMATOCRIT 37.4 % (36.7-47.1); HEMOGLOBIN 15.4 g/dL (12.5-16.3); LYMPHOCYTES # (AUTO) 2.9 K/uL (20.0-40.0); LYMPHOCYTES % (AUTO) 34.9 % (20.5-51.5); MEAN CORPUSCULAR HEMOGLOBIN 34.7 uug (23.8-33.4); MEAN CORPUSCULAR HGB CONC 41 g/dL (32.5-36.3); MEAN CORPUSCULAR VOLUME 84.5 fL (73.0-96.2); MONOCYTES # (AUTO) 0.5 K/uL (2.0-10.0); MONOCYTES % (AUTO) 6.5 % (0.0-11.0); NEUTROPHILS # (AUTO) 4.3 K/uL (1.8-8.9); NEUTROPHILS % (AUTO) 52.1 % (38.5-71.5); PLATELET COUNT (AUTO) 408 K/uL (152-348); RED BLOOD CELL COUNT(AUTO) 4.42 MIL/uL (4.06-5.63); WHITE BLOOD COUNT (AUTO) 8.3 K/uL (3.6-10.2)
[2020-11-17 22:55] LABS: BILIRUBIN,DIRECT 0.1 mg/dL (0.0-0.2); BILIRUBIN,TOTAL 0.5 mg/dL (0.2-1.0); CREATININE 0.9 mg/dL (0.6-1.3); POTASSIUM 3.9 mmol/L (3.5-5.1)
[2020-11-17] MEDS ORDERED: INSULIN REGULAR, HUMAN 300 UNIT/3 ML VIAL IV ONE (23:15)
[2020-11-17] MEDS ORDERED: INSULIN REGULAR, HUMAN 300 UNIT/3 ML VIAL ONE (23:15)
[2020-11-17] MEDS ORDERED: VITAMIN D (23:17)
[2020-11-17] MEDS ORDERED: OMEG1CAP55 PO (23:17)
[2020-11-18] VITALS (13 sets, daily range): BP systolic 111–157; BP diastolic 77–103
[2020-11-18] MEDS ORDERED: Z GUARD REMEDY PASTE 57 GM TUBE TOP PRN (00:45)
[2020-11-18] MEDS ORDERED: MAGNESIUM HYDROXIDE 30 ML LIQUID UDC PO PRN (00:45)
[2020-11-18] MEDS ORDERED: ACETAMINOPHEN 325 MG TABLET PO PRN (00:45)
[2020-11-18] MEDS ORDERED: DEXTROSE 50% 50 ML DISP.SYRIN IV PRN (00:45)
[2020-11-18] MEDS ORDERED: INSULIN REGULAR, HUMAN 300 UNITS/3 ML VIAL SQ PRN (00:45)
[2020-11-18] MEDS ORDERED: IV NS 1000 ML 1,000 ML IV PRN (00:45)
[2020-11-18] MEDS ORDERED: HYDROCODONE/APAP 5-325MG TABLET PO PRN (00:45)
[2020-11-18] MEDS: HYDROMORPHONE 1 MG/1 ML DISP.SYRIN IV PRN ×6 (02:57→22:54)
[2020-11-18] MEDS: PANTOPRAZOLE SODIUM 40 MG TABLET.DR PO SCH (06:05)
[2020-11-18] MEDS: BLOOD SUGAR DIAGNOSTIC 1 EACH STRIP VI SCH ×9 (06:38→22:41)
[2020-11-18] MEDS: INSULIN REGULAR, HUMAN 300 UNIT/3 ML VIAL SQ PRN ×2 (07:18→11:52)
[2020-11-18] MEDS ORDERED: PIOGLITAZONE HCL 15 MG TABLET PO SCH (09:00)
[2020-11-18] MEDS: FLUOXETINE HCL 10 MG CAPSULE PO SCH (09:00)
[2020-11-18] MEDS ORDERED: Empagliflozin (Jardiance) 25 MG) PO SCH (09:00)
[2020-11-18] MEDS: GEMFIBROZIL 600 MG TABLET PO SCH ×2 (09:00→17:23)
[2020-11-18] MEDS: OMEGA-3 FATTY ACIDS/FISH OIL CAPSULE PO SCH ×3 (09:00→17:15)
[2020-11-18] MEDS: EZETIMIBE 10 MG TABLET PO SCH (09:00)
[2020-11-18] MEDS: AMLODIPINE 5 MG TABLET PO SCH (09:00)
[2020-11-18] MEDS: ASPIRIN EC 81 MG TABLET.DR PO SCH (09:00)
[2020-11-18] MEDS: METOPROLOL SUCCINATE XL 25 MG TAB.SR.24H PO SCH (09:00)
[2020-11-18] MEDS: INSULIN REGULAR, HUMAN 100 UNIT in IV NORMAL SALINE 99 ML IV PRN (15:10)
[2020-11-18] MEDS ORDERED: INSU300I SQ (18:55)
[2020-11-18] MEDS ORDERED: ICOS1CAP PO (19:02)
[2020-11-18] MEDS: ONDANSETRON 4 MG/2 ML VIAL IV PRN (19:23)
[2020-11-19] VITALS (24 sets, daily range): BP systolic 102–154; BP diastolic 68–97
[2020-11-19] MEDS: BLOOD SUGAR DIAGNOSTIC 1 EACH STRIP VI SCH ×12 (00:57→23:04)
[2020-11-19] MEDS: HYDROMORPHONE 1 MG/1 ML DISP.SYRIN IV PRN ×7 (02:09→22:04)
[2020-11-19 05:27] LABS: BASOPHILS # (AUTO) 0.1 K/uL (0.0-8.0); BASOPHILS % (AUTO) 1.2 % (0.0-2.0); EOSINOPHILS # (AUTO) 0.4 K/uL (0.0-0.7); EOSINOPHILS % (AUTO) 5.7 % (0.0-7.0); HEMATOCRIT 35.3 % (36.7-47.1); HEMOGLOBIN 12.2 g/dL (12.5-16.3); LYMPHOCYTES # (AUTO) 3.2 K/uL (20.0-40.0); LYMPHOCYTES % (AUTO) 49.6 % (20.5-51.5); MEAN CORPUSCULAR HEMOGLOBIN 29.7 uug (23.8-33.4); MEAN CORPUSCULAR HGB CONC 35 g/dL (32.5-36.3); MEAN CORPUSCULAR VOLUME 85.9 fL (73.0-96.2); MONOCYTES # (AUTO) 0.4 K/uL (2.0-10.0); MONOCYTES % (AUTO) 6.9 % (0.0-11.0); NEUTROPHILS # (AUTO) 2.3 K/uL (1.8-8.9); NEUTROPHILS % (AUTO) 36.6 % (38.5-71.5); PLATELET COUNT (AUTO) 340 K/uL (152-348); RED BLOOD CELL COUNT(AUTO) 4.11 MIL/uL (4.06-5.63); WHITE BLOOD COUNT (AUTO) 6.4 K/uL (3.6-10.2)
[2020-11-19 05:53] LABS: CHOLESTEROL 631 mg/dL (<200); HDL CHOLESTEROL 41 mg/dL (40-60)
[2020-11-19 05:54] LABS: TRIGLYCERIDES > 4000 MG/DL (30-150)
[2020-11-19 06:11] LABS: THYROID STIMULATING HORMONE 0.973 mIU/mL (0.358-3.740)
[2020-11-19 06:12] LABS: ALANINE AMINOTRANSFERASE 23 U/L (16-63); ALKALINE PHOSPHATASE 79 U/L (50-136); ASPARTATE AMINOTRANSFERASE 17 U/L (15-37); BILIRUBIN,TOTAL 0.4 mg/dL (0.2-1.0); CARBON DIOXIDE 29 mmol/L (21-32); CHLORIDE 100 mmol/L (98-107); CREATININE 0.8 mg/dL (0.6-1.3); GLUCOSE 218 mg/dL (74-106); MAGNESIUM 1.7 mg/dL (1.8-2.4); PHOSPHOROUS 3.6 mg/dL (2.5-4.9); POTASSIUM 3.7 mmol/L (3.5-5.1); TOTAL PROTEIN, SERUM 6.8 g/dL (6.4-8.2); UREA NITROGEN, BLOOD 6 mg/dL (7-18); URIC ACID 7.3 mg/dL (3.5-7.2)
[2020-11-19] MEDS: PANTOPRAZOLE SODIUM 40 MG TABLET.DR PO SCH (06:30)
[2020-11-19] MEDS: ASPIRIN EC 81 MG TABLET.DR PO SCH (08:17)
[2020-11-19] MEDS: GEMFIBROZIL 600 MG TABLET PO SCH ×2 (08:17→16:53)
[2020-11-19] MEDS: AMLODIPINE 5 MG TABLET PO SCH (08:17)
[2020-11-19] MEDS: OMEGA-3 FATTY ACIDS/FISH OIL CAPSULE PO SCH ×2 (08:17→16:53)
[2020-11-19] MEDS: ENOXAPARIN SODIUM 40 MG/0.4 ML DISP.SYRIN SQ SCH (08:29)
[2020-11-19] MEDS: EZETIMIBE 10 MG TABLET PO SCH (08:44)
[2020-11-19] MEDS: FLUOXETINE HCL 10 MG CAPSULE PO SCH (08:44)
[2020-11-19] MEDS: METOPROLOL SUCCINATE XL 25 MG TAB.SR.24H PO SCH (08:55)
[2020-11-19] MEDS ORDERED: PIOGLITAZONE HCL 15 MG TABLET PO SCH (09:00)
[2020-11-19] MEDS: MAGNESIUM SULFATE/D5W 100 ML IV SCH ×2 (09:28→10:24)
[2020-11-19] MEDS: INSULIN REGULAR, HUMAN 100 UNIT in IV NORMAL SALINE 99 ML IV PRN (13:35)
[2020-11-20] VITALS (14 sets, daily range): BP systolic 116–131; BP diastolic 66–94
[2020-11-20] MEDS: BLOOD SUGAR DIAGNOSTIC 1 EACH STRIP VI SCH ×7 (01:10→13:03)
[2020-11-20] MEDS: HYDROMORPHONE 1 MG/1 ML DISP.SYRIN IV PRN ×4 (01:17→11:44)
[2020-11-20] MEDS: INSULIN REGULAR, HUMAN 100 UNIT in IV NORMAL SALINE 99 ML IV PRN ×2 (02:20→08:09)
[2020-11-20 05:10] LABS: BASOPHILS # (AUTO) 0.1 K/uL (0.0-8.0); BASOPHILS % (AUTO) 1.2 % (0.0-2.0); EOSINOPHILS # (AUTO) 0.3 K/uL (0.0-0.7); EOSINOPHILS % (AUTO) 5.1 % (0.0-7.0); HEMATOCRIT 36.4 % (36.7-47.1); HEMOGLOBIN 12.2 g/dL (12.5-16.3); LYMPHOCYTES # (AUTO) 3.1 K/uL (20.0-40.0); LYMPHOCYTES % (AUTO) 45.9 % (20.5-51.5); MEAN CORPUSCULAR HEMOGLOBIN 28.9 uug (23.8-33.4); MEAN CORPUSCULAR HGB CONC 34 g/dL (32.5-36.3); MEAN CORPUSCULAR VOLUME 86.2 fL (73.0-96.2); MONOCYTES # (AUTO) 0.4 K/uL (2.0-10.0); MONOCYTES % (AUTO) 6.3 % (0.0-11.0); NEUTROPHILS # (AUTO) 2.8 K/uL (1.8-8.9); NEUTROPHILS % (AUTO) 41.5 % (38.5-71.5); PLATELET COUNT (AUTO) 374 K/uL (152-348); RED BLOOD CELL COUNT(AUTO) 4.23 MIL/uL (4.06-5.63); WHITE BLOOD COUNT (AUTO) 6.7 K/uL (3.6-10.2)
[2020-11-20 05:30] LABS: CREATININE 0.7 mg/dL (0.6-1.3); MAGNESIUM 1.8 mg/dL (1.8-2.4); PHOSPHOROUS 4.2 mg/dL (2.5-4.9); POTASSIUM 3.9 mmol/L (3.5-5.1)
[2020-11-20] MEDS: PANTOPRAZOLE SODIUM 40 MG TABLET.DR PO SCH (06:08)
[2020-11-20] MEDS ORDERED: PANTOPRAZOLE SODIUM 40 MG TABLET.DR PO SCH (07:00)
[2020-11-20] MEDS: METOPROLOL SUCCINATE XL 25 MG TAB.SR.24H PO SCH (08:07)
[2020-11-20] MEDS: GEMFIBROZIL 600 MG TABLET PO SCH (08:07)
[2020-11-20] MEDS: ENOXAPARIN SODIUM 40 MG/0.4 ML DISP.SYRIN SQ SCH (08:08)
[2020-11-20] MEDS: FLUOXETINE HCL 10 MG CAPSULE PO SCH (08:08)
[2020-11-20] MEDS: EZETIMIBE 10 MG TABLET PO SCH (08:08)
[2020-11-20] MEDS: ASPIRIN EC 81 MG TABLET.DR PO SCH (08:08)
[2020-11-20] MEDS: OMEGA-3 FATTY ACIDS/FISH OIL CAPSULE PO SCH (08:08)
[2020-11-20] MEDS ORDERED: LOSARTAN POTASSIUM 25 MG TABLET PO SCH (09:00)
[2020-11-20] MEDS: ONDANSETRON 4 MG/2 ML VIAL IV PRN (11:43)
[2020-11-21] MEDS ORDERED: LOSARTAN POTASSIUM 50 MG TABLET PO SCH (09:00)
== END 2020-11-20 13:53 | disposition home or self-care (01) | DRG 439 ==
LOC: ER 20:37 → TELE3 11-18 00:46 → TELE-TD3 11-18 12:25 → CCU 11-18 14:00
PROVIDERS: ADMIT Internal Medicine; ATTEND Internal Medicine
DX: K85.90 Acute pancreatitis without necrosis or infection, unspecified (principal); E87.1 Hypo-osmolality and hyponatremia; E78.1 Pure hyperglyceridemia; E11.65 Type 2 diabetes mellitus with hyperglycemia; E66.9 Obesity, unspecified; E83.42 Hypomagnesemia; E86.1 Hypovolemia; E78.5 Hyperlipidemia, unspecified; I10 Essential (primary) hypertension; I25.10 Atherosclerotic heart disease of native coronary artery without angina pectoris; G89.4 Chronic pain syndrome; Z20.822 Contact with and (suspected) exposure to COVID-19; K86.1 Other chronic pancreatitis; K76.0 Fatty (change of) liver, not elsewhere classified; Z68.34 Body mass index [BMI] 34.0-34.9, adult; Z79.82 Long term (current) use of aspirin; M47.9 Spondylosis, unspecified; K76.89 Other specified diseases of liver; Z79.84 Long term (current) use of oral hypoglycemic drugs; Z83.3 Family history of diabetes mellitus; Z79.891 Long term (current) use of opiate analgesic
CPT/HCPCS: 36415; 70030-TC; 71045; 82652; 83690; 83735; 83935; 84100; 84300; 84443; 84478; 84550; 85025; 93005; A4663; C9113; G0378; J1170; J1650; J1815; J2405; J3475; J3490; J7030

== ENCOUNTER 2021-11-02 19:38 | Inpatient (IN) | payer MEDICARE, OTHER ==
[~2021-11-02] VITALS: Ht 170.2 cm; Wt 111.1 kg
[~2021-11-02 19:38] MED LIST changes: -FLUO10CA29 PO; -GABA-534 PO; +ICOS1CAP PO; -INSU100I26 SQ; +INSU300I SQ; -METO-295 PO; +VITAMIN D
--- NOTE | 2021-11-02 19:45 | NUR ---
Patient walked into ER c/o non radiating CP with a 8/10 pressure pain that started about 8hrs ago
[2021-11-02] MEDS ORDERED: HYDROMORPHONE HCL 2 MG TABLET PO ONE ×2 (20:00→21:00)
[2021-11-02] MEDS ORDERED: ONDANSETRON 4 MG/2 ML VIAL IV ONE (20:00)
[2021-11-02] MEDS ORDERED: NITROGLYCERIN OINT 1 GM PACKET TP ONE ×2 (20:00→20:02)
[2021-11-02] MEDS ORDERED: ONDANSETRON 4 MG/2 ML VIAL ONE (20:01)
[2021-11-02] MEDS ORDERED: HYDROMORPHONE HCL 2 MG TABLET ONE ×2 (20:02→20:55)
[2021-11-02] MEDS ORDERED: LOSA50TA39 PO (20:10)
[2021-11-02 20:22] LABS: AMYLASE 64 U/L (25-115); CARBON DIOXIDE 25 mmol/L (21-32); CHLORIDE 97 mmol/L (98-107); HEMATOCRIT 38.1 % (36.7-47.1); LIPASE 38 U/L (73-393); MEAN CORPUSCULAR HEMOGLOBIN 29.7 uug (23.8-33.4); MEAN CORPUSCULAR VOLUME 85.2 fL (73.0-96.2); PLATELET COUNT (AUTO) 362 K/uL (152-348); POTASSIUM 4.1 mmol/L (3.5-5.1); UREA NITROGEN, BLOOD 10 mg/dL (7-18)
[2021-11-02 20:30] LABS: GLUCOSE 322 mg/dL (74-106)
[2021-11-02 20:37] LABS: ALANINE AMINOTRANSFERASE 39 U/L (16-63); ALKALINE PHOSPHATASE 80 U/L (50-136); ASPARTATE AMINOTRANSFERASE 18 U/L (15-37); BILIRUBIN,DIRECT < 0.1 mg/dL (0.0-0.2); BILIRUBIN,TOTAL 0.3 mg/dL (0.2-1.0); TOTAL PROTEIN, SERUM 7.5 g/dL (6.4-8.2)
--- NOTE | 2021-11-02 20:40 | NUR ---
called for bed. Patient will go to room 305
[2021-11-02 20:48] LABS: *BILIRUBIN,URIN NEGATIVE (NEGATIVE); *COLOR,URINE YELLOW (YELLOW); *KETONES,URINE NEGATIVE (NEGATIVE); *UROBILINOGEN,URINE 0.2 E.U./dl (NORMAL); LEUKOCYTE ESTERASE ,URINE TRACE (NEGATIVE); NITRITE, URINE NEGATIVE (NEGATIVE); PH,URINE 5.5 (5.0-8.0); UGLUCOSE 2+ (NEGATIVE)
[2021-11-02 20:49] LABS: *BLOOD, URINE TRACE (NEGATIVE); *CLARITY,URINE HAZY (CLEAR)
--- NOTE | 2021-11-02 20:52 | NUR ---
called [facility]. Dr Barney will call us back
[2021-11-02 20:59] LABS: BACTERIA,URINE FEW /HPF (NONE SEEN); SQUAMOUS EPITHELIAL CELL,UR FEW /HPF (NONE SEEN)
--- NOTE | 2021-11-02 21:00 | NUR ---
called 3rd floor to give report. will call us back
--- NOTE | 2021-11-02 21:04 | NUR ---
gave report to Trevor MCKAY
--- NOTE | 2021-11-02 21:05 | NUR ---
Received admission report from ER nurse.
--- NOTE | 2021-11-02 21:15 | NUR ---
Pt. admitted to 305 TELE , under care of Dr. Barney Belongs List completed Layda RN is aware of patient's arrival
--- NOTE | 2021-11-02 21:17 | NUR ---
Patient arrived in the floor via wheelchair accompanied by ER nurse. Awake, alert and oriented x 4. Denies any pain at this time. Not in respiratory distress. Transferred himself from wheelchair to bed without difficulty. Routine admission care done. Plan of care initiated.
[2021-11-02 21:34] VITALS: BP 146/97
[2021-11-02] MEDS ORDERED: DEXTROSE 50% 50 ML DISP.SYRIN IV PRN ×2 (21:45)
[2021-11-02] MEDS ORDERED: INSULIN REGULAR, HUMAN 300 UNIT/3 ML VIAL SQ PRN (21:45)
[2021-11-02] MEDS ORDERED: MORPHINE SULFATE 2 MG/1 ML DISP.SYRIN IV PRN (21:45)
[2021-11-02] MEDS ORDERED: MAGNESIUM HYDROXIDE 30 ML LIQUID UDC PO PRN (21:45)
[2021-11-02] MEDS ORDERED: ACETAMINOPHEN 325 MG TABLET PO PRN (21:45)
[2021-11-02] MEDS ORDERED: BLOOD SUGAR DIAGNOSTIC 1 EACH STRIP VI SCH (21:45)
[2021-11-02] MEDS ORDERED: INSULIN REGULAR, HUMAN 300 UNITS/3 ML VIAL SQ PRN (21:45)
[2021-11-02] MEDS ORDERED: HYDROCODONE/APAP 5-325MG TABLET PO PRN (21:45)
[2021-11-02] MEDS ORDERED: hydrALAZINE HCL 20 MG/1 ML VIAL IV PRN (21:45)
--- NOTE | 2021-11-02 21:57 | NUR ---
Patient status changed from Telemetry to ICU per MD ordered. Transferred patient to ICU via wheelchair. In no apparent distress.
--- NOTE | 2021-11-02 22:00 | NUR ---
Patient came back to ER from 3rd floor
[2021-11-02] MEDS ORDERED: HYDROMORPHONE 1 MG/1 ML DISP.SYRIN ONE (22:10)
[2021-11-02] MEDS ORDERED: HYDROMORPHONE 1 MG/1 ML DISP.SYRIN IV PRN (22:15)
[2021-11-02] MEDS: BLOOD SUGAR DIAGNOSTIC 1 EACH STRIP VI SCH (22:39)
[2021-11-02] MEDS: IV D5 1/2 NS 1000 ML 1,000 ML IV SCH (22:55)
[2021-11-03] VITALS (16 sets, daily range): BP systolic 117–144; BP diastolic 66–91
[2021-11-03 00:10] LABS: BILIRUBIN,TOTAL 0.4 mg/dL (0.2-1.0); CREATININE 0.9 mg/dL (0.6-1.3); TOTAL PROTEIN, SERUM 7.2 g/dL (6.4-8.2)
[2021-11-03] MEDS: BLOOD SUGAR DIAGNOSTIC 1 EACH STRIP VI SCH ×24 (00:19→22:58)
[2021-11-03] MEDS ORDERED: POTASSIUM CHLORIDE 20 MEQ TAB.PRT.SR PO ONE (00:45)
[2021-11-03] MEDS ORDERED: INSULIN REGULAR, HUMAN 300 UNIT/3 ML VIAL ONE (00:49)
[2021-11-03] MEDS ORDERED: POTASSIUM CHLORIDE 20 MEQ TAB.PRT.SR ONE (01:07)
--- NOTE | 2021-11-03 01:46 | NUR ---
called Dr Allen, asked what algorithym to be used. he stated continue 11 units/hr and continue the D5 0.45% NS. Updated Dr Allen current blood glucose is 256 and K 4.0
[2021-11-03] MEDS ORDERED: HYDROMORPHONE 1 MG/1 ML DISP.SYRIN ONE ×4 (02:19→15:22)
[2021-11-03] MEDS: HYDROMORPHONE 1 MG/1 ML DISP.SYRIN IV PRN ×6 (02:25→23:01)
[2021-11-03] MEDS ORDERED: ONDANSETRON 4 MG/2 ML VIAL ONE ×2 (02:27→15:22)
[2021-11-03] MEDS: ONDANSETRON 4 MG/2 ML VIAL IV PRN ×3 (02:30→23:01)
[2021-11-03 03:51] LABS: BILIRUBIN,TOTAL 0.3 mg/dL (0.2-1.0); CREATININE 0.9 mg/dL (0.6-1.3); POTASSIUM 3.6 mmol/L (3.5-5.1); TOTAL PROTEIN, SERUM 6.9 g/dL (6.4-8.2)
--- NOTE | 2021-11-03 04:25 | NUR ---
updated Dr Allen that the patient's blood glucose is 156 and potassium is 3.6 he stated titrate blood glucose to 250. Consulted Dr Mcdonald and he stated titrate insulin drip from 11 units/hr to 5 units/hr
[2021-11-03] MEDS: IV D5 1/2 NS 1000 ML 1,000 ML IV SCH (04:30)
[2021-11-03] MEDS ORDERED: POTASSIUM CHLORIDE 50 ML ONE (05:06)
[2021-11-03] MEDS: POTASSIUM CHLORIDE 50 ML IV PRN ×4 (05:40→09:07)
--- NOTE | 2021-11-03 06:10 | NUR ---
tried calling Dr Allen to update about patient's glucose 137. They said he will call back
--- NOTE | 2021-11-03 06:21 | NUR ---
talked to Dr Allen. New orders received
[2021-11-03] MEDS: IV 10% DEXTROSE 1,000 ML IV PRN ×2 (06:30→13:11)
[2021-11-03] MEDS ORDERED: POTASSIUM CHLORIDE 150 ML ONE (06:41)
--- NOTE | 2021-11-03 07:30 | NUR ---
spoke to Dr. walkre due to no standing IV insulin orders. recieved new orders and faxed to pharmacy.
[2021-11-03 07:41] LABS: MEAN CORPUSCULAR HEMOGLOBIN 29.8 uug (23.8-33.4); MEAN CORPUSCULAR VOLUME 86.3 fL (73.0-96.2); PLATELET COUNT (AUTO) 331 K/uL (152-348)
[2021-11-03 08:01] LABS: BILIRUBIN,TOTAL 0.4 mg/dL (0.2-1.0); CREATININE 0.9 mg/dL (0.6-1.3); POTASSIUM 4.1 mmol/L (3.5-5.1); TOTAL PROTEIN, SERUM 6.6 g/dL (6.4-8.2)
[2021-11-03] MEDS: INSULIN REGULAR, HUMAN 100 UNIT in IV NORMAL SALINE 99 ML IV PRN ×4 (08:02→20:05)
[2021-11-03] MEDS ORDERED: PANTOPRAZOLE SODIUM 40 MG TABLET.DR PO ONE (08:42)
[2021-11-03] MEDS ORDERED: ASPIRIN 81 MG TAB.CHEW ONE (08:42)
[2021-11-03] MEDS ORDERED: ENOXAPARIN SODIUM 40 MG/0.4 ML DISP.SYRIN SQ ONE (08:42)
[2021-11-03] MEDS ORDERED: AMLODIPINE 5 MG TABLET ONE (08:43)
[2021-11-03] MEDS ORDERED: METOPROLOL SUCCINATE XL 25 MG TAB.SR.24H PO ONE (08:45)
[2021-11-03] MEDS: PANTOPRAZOLE SODIUM 40 MG TABLET.DR PO SCH (08:47)
[2021-11-03] MEDS: METOPROLOL SUCCINATE XL 25 MG TAB.SR.24H PO SCH (08:47)
[2021-11-03] MEDS: ASPIRIN EC 81 MG TABLET.DR PO SCH (08:48)
[2021-11-03] MEDS: GEMFIBROZIL 600 MG TABLET PO SCH ×2 (08:49→17:55)
[2021-11-03] MEDS: EZETIMIBE 10 MG TABLET PO SCH (08:49)
[2021-11-03] MEDS: AMLODIPINE 5 MG TABLET PO SCH (08:49)
[2021-11-03] MEDS: LOSARTAN POTASSIUM 50 MG TABLET PO SCH (08:50)
[2021-11-03] MEDS: ENOXAPARIN SODIUM 40 MG/0.4 ML DISP.SYRIN SQ SCH (08:51)
[2021-11-03] MEDS ORDERED: Empagliflozin (Jardiance) 25 MG) PO SCH (09:00)
[2021-11-03] MEDS ORDERED: Medication Not On Formulary EA (Dexlansoprazole (Dexilant) 1 CAP) PO SCH (09:00)
--- NOTE | 2021-11-03 09:00 | NUR ---
obtained diet order called dietary for tray.
[2021-11-03 09:54] LABS: PHOSPHOROUS 3.5 mg/dL (2.5-4.9)
[2021-11-03 11:53] LABS: BILIRUBIN,TOTAL 0.4 mg/dL (0.2-1.0); POTASSIUM 4.3 mmol/L (3.5-5.1); TOTAL PROTEIN, SERUM 6.8 g/dL (6.4-8.2)
--- NOTE | 2021-11-03 13:15 | NUR ---
Informed Dr. champagne with new cmp results with sodium down to 131 and D10 still running at 150ml/hr. Ordered to decrease rate to 90ml/hr for now.
[2021-11-03 16:25] LABS: BILIRUBIN,TOTAL 0.5 mg/dL (0.2-1.0); CREATININE 0.9 mg/dL (0.6-1.3); POTASSIUM 4.3 mmol/L (3.5-5.1); TOTAL PROTEIN, SERUM 6.9 g/dL (6.4-8.2)
--- NOTE | 2021-11-03 16:55 | NUR ---
Informed of new lab results triglyceride level cholesterol level potassium and sodium level. no new orders continue plan of care for now.l
--- NOTE | 2021-11-03 19:30 | NUR ---
Seen by Dr. Lopez. Report received. Patient AAO, c/o chest pressure 8/10. Stated Dr. Lopez changed pain medication to Q3H. Dr. Lopez notified. On continuous Insulin and D10% IV infusion. Assessment completed. Addendum: 11/03/21 at 2149 by PIERO MCLAUGHLIN RN Amended: Links added. Addendum: 11/03/21 at 2152 by PIERO MCLAUGHLIN RN Amended: Links added. Addendum: 11/03/21 at 2153 by PIERO MCLAUGHLIN RN Amended: Links added.
--- NOTE | 2021-11-03 19:45 | NUR ---
Medicated with Dilaudid IV. Addendum: 11/03/21 at 2152 by PIERO MCLAUGHLIN RN Amended: Links added. Addendum: 11/03/21 at 2153 by PIERO MCLAUGHLIN RN Amended: Links added.
[2021-11-03] MEDS: CEFTRIAXONE 1 G in IV DEXTROSE 5% 50 ML IV SCH (19:59)
--- NOTE | 2021-11-03 20:30 | NUR ---
Sleeping after Dilaudid and desaturates to 88-89%. Put on O2 2L NC. Saturations improved. Addendum: 11/03/21 at 2153 by PIERO MCLAUGHLIN RN Amended: Links added.
--- NOTE | 2021-11-03 21:30 | NUR ---
C/o room being hot; room thermostat adjusted. PM care provided.
--- NOTE | 2021-11-03 21:53 | NUR ---
Noted that Dilaudid IV scanned and given at 5 did NOT get saved. Will discuss with Pharmacist in am.
[2021-11-04] VITALS (19 sets, daily range): BP systolic 107–189; BP diastolic 66–155
--- NOTE | 2021-11-04 | NUR ---
C/o being hungry; dxptotudg=990. Snack given. Ate well, no nausea. NAD noted. Addendum: 11/04/21 at 0115 by PIERO MCLAUGHLIN RN Amended: Links added.
[2021-11-04] MEDS: BLOOD SUGAR DIAGNOSTIC 1 EACH STRIP VI SCH ×19 (00:02→20:53)
[2021-11-04] MEDS: IV 10% DEXTROSE 1,000 ML IV PRN ×2 (00:04→11:23)
[2021-11-04] MEDS: HYDROMORPHONE 1 MG/1 ML DISP.SYRIN IV PRN ×8 (02:00→23:58)
[2021-11-04 05:27] LABS: HEMATOCRIT 36.1 % (36.7-47.1); MEAN CORPUSCULAR HEMOGLOBIN 29.8 uug (23.8-33.4); MEAN CORPUSCULAR VOLUME 85.9 fL (73.0-96.2); PLATELET COUNT (AUTO) 322 K/uL (152-348)
[2021-11-04 05:42] LABS: MAGNESIUM 1.6 mg/dL (1.8-2.4); PHOSPHOROUS 4.3 mg/dL (2.5-4.9)
--- NOTE | 2021-11-04 06:25 | NUR ---
Remains on Insulin drip and Accu checks QH ranges 178-269. Requires Dilaudid IV Q3H for c/o chest pains/discomfort. VS stable.
[2021-11-04] MEDS: PANTOPRAZOLE SODIUM 40 MG TABLET.DR PO SCH (06:30)
[2021-11-04] MEDS: METOPROLOL SUCCINATE XL 25 MG TAB.SR.24H PO SCH (08:12)
[2021-11-04] MEDS: LOSARTAN POTASSIUM 50 MG TABLET PO SCH (08:12)
[2021-11-04] MEDS: ASPIRIN EC 81 MG TABLET.DR PO SCH (08:13)
[2021-11-04] MEDS: AMLODIPINE 5 MG TABLET PO SCH (08:13)
[2021-11-04] MEDS: GEMFIBROZIL 600 MG TABLET PO SCH ×2 (08:13→16:33)
[2021-11-04] MEDS: EZETIMIBE 10 MG TABLET PO SCH (08:13)
[2021-11-04] MEDS: ENOXAPARIN SODIUM 40 MG/0.4 ML DISP.SYRIN SQ SCH (08:14)
[2021-11-04] MEDS ORDERED: MAGNESIUM OXIDE 400 MG TABLET PO ONE (09:30)
[2021-11-04] MEDS: ONDANSETRON 4 MG/2 ML VIAL IV PRN (14:43)
[2021-11-04] MEDS ORDERED: DEXTROSE 50% 50 ML DISP.SYRIN IV PRN (17:00)
--- NOTE | 2021-11-04 17:00 | NUR ---
Dr. Lopez called to downgrade patient to MS. Orders given to stop insulin drip, and IVF of D10; start accucheck ac & hs with aggressive regular insulin sliding scale coverage. diabetic meds will be reviewed and resumed by him when he rounds with patient tonight.
[2021-11-04] MEDS: INSULIN REGULAR, HUMAN 300 UNIT/3 ML VIAL SQ PRN (17:46)
--- NOTE | 2021-11-04 18:20 | NUR ---
Gave report to Cedrick MCKAY. Informed that insulin coverage given prior to transfer. patient transferred via wheelchair personal belongings transferred with the patient.
--- NOTE | 2021-11-04 18:22 | NUR ---
Received patient from CCU. Patient report from Lisa MCKAY.
[2021-11-04] MEDS: CEFTRIAXONE 1 G in IV DEXTROSE 5% 50 ML IV SCH (18:29)
--- NOTE | 2021-11-04 18:37 | NUR ---
Patient resting comfortably in bed with no signs of distress or discomfort. IV site intact and patent. IV antibiotics started. Bed left in the lowest position with call light within reach. Comfort measures provided. Will endorse information to PM nurse.
[2021-11-04] MEDS: INSULIN REGULAR, HUMAN 300 UNITS/3 ML VIAL SQ PRN (20:55)
[2021-11-05] MEDS: HYDROMORPHONE 1 MG/1 ML DISP.SYRIN IV PRN ×7 (03:19→21:30)
[2021-11-05 04:00] VITALS: BP 121/87
--- NOTE | 2021-11-05 06:01 | NUR ---
Patient is alert and oriented x4. Is comfortable this shift, sleeping intermittently. Complains of pain to medial upper abdomen, states pain is chronic and usually managed with Hien and his pain management MD but the pain was too strong now. Pain medication is requested every 3 hours PRN. Patient ABD is soft, non distended, slightly tender. Able to ambulate to bathroom. On 2L 02 via NC. No SOB. All needs attended.
[2021-11-05] MEDS: PANTOPRAZOLE SODIUM 40 MG TABLET.DR PO SCH (06:24)
[2021-11-05] MEDS: BLOOD SUGAR DIAGNOSTIC 1 EACH STRIP VI SCH ×4 (06:32→20:30)
--- NOTE | 2021-11-05 07:45 | NUR ---
Arrived to patient's room sleeping comfortably with no signs of distress or discomfort. IV site intact and patent. Bed left in lowest position with call light within reach. Will continue to monitor patient throughout shift.
[2021-11-05] MEDS: GEMFIBROZIL 600 MG TABLET PO SCH ×2 (08:26→16:53)
[2021-11-05] MEDS: AMLODIPINE 5 MG TABLET PO SCH (08:26)
[2021-11-05] MEDS: EZETIMIBE 10 MG TABLET PO SCH (08:26)
[2021-11-05] MEDS: ASPIRIN EC 81 MG TABLET.DR PO SCH (08:26)
[2021-11-05] MEDS: METOPROLOL SUCCINATE XL 25 MG TAB.SR.24H PO SCH (08:27)
[2021-11-05] MEDS: LOSARTAN POTASSIUM 50 MG TABLET PO SCH (08:30)
[2021-11-05] MEDS: ENOXAPARIN SODIUM 40 MG/0.4 ML DISP.SYRIN SQ SCH (08:34)
[2021-11-05] MEDS: INSULIN REGULAR, HUMAN 300 UNIT/3 ML VIAL SQ PRN ×3 (08:34→16:25)
[2021-11-05] MEDS: ONDANSETRON 4 MG/2 ML VIAL IV PRN (09:21)
[2021-11-05 11:03] VITALS: BP 139/85
[2021-11-05 15:16] VITALS: BP 101/64
--- NOTE | 2021-11-05 16:49 | NUR ---
Pharmacist to speak to Doctor regarding patient's rocephin, if patient will continue to take this medication or not. Will endorse to PM nurse.
--- NOTE | 2021-11-05 18:39 | NUR ---
Patient received care well throughout shift. Pain managed during shift. IV site intact and patent. No signs of distress or discomfort. Bed left in lowest position with call light within reach. Comfort measures provided. Will endorse information to PM nurse.
[2021-11-05 20:00] VITALS: BP 126/77
[2021-11-05] MEDS: INSULIN REGULAR, HUMAN 300 UNITS/3 ML VIAL SQ PRN (20:32)
[2021-11-06] MEDS: HYDROMORPHONE 1 MG/1 ML DISP.SYRIN IV PRN ×5 (00:43→12:34)
[2021-11-06 04:01] VITALS: BP 128/70
[2021-11-06] MEDS: PANTOPRAZOLE SODIUM 40 MG TABLET.DR PO SCH (06:33)
[2021-11-06] MEDS: BLOOD SUGAR DIAGNOSTIC 1 EACH STRIP VI SCH ×2 (06:40→11:21)
--- NOTE | 2021-11-06 06:44 | NUR ---
Patient is alert and oriented x4. Patient able to make his needs known. Sleeping intermittently, requesting Dilaudid for severe abdominal pain every 3 hours- medication provided as per orders. Patient ABD is soft, non distended, slightly tender. Able to ambulate to bathroom. Gait is steady. Safety measures continued, call light within reach.
[2021-11-06] MEDS: ASPIRIN EC 81 MG TABLET.DR PO SCH (09:07)
[2021-11-06] MEDS: GEMFIBROZIL 600 MG TABLET PO SCH (09:07)
[2021-11-06] MEDS: AMLODIPINE 5 MG TABLET PO SCH (09:07)
[2021-11-06] MEDS: METOPROLOL SUCCINATE XL 25 MG TAB.SR.24H PO SCH (09:08)
[2021-11-06] MEDS: EZETIMIBE 10 MG TABLET PO SCH (09:08)
[2021-11-06] MEDS: LOSARTAN POTASSIUM 50 MG TABLET PO SCH (09:08)
[2021-11-06] MEDS: ENOXAPARIN SODIUM 40 MG/0.4 ML DISP.SYRIN SQ SCH (09:11)
[2021-11-06] MEDS: INSULIN REGULAR, HUMAN 300 UNIT/3 ML VIAL SQ PRN ×2 (09:12→11:24)
[2021-11-06 11:26] VITALS: BP 135/87
--- NOTE | 2021-11-06 11:31 | NUR ---
Patient to become discharged from hospital at 1330.
--- NOTE | 2021-11-06 13:07 | NUR ---
Discharge education provided. IV site removed. ID badge removed.
--- NOTE | 2021-11-06 13:37 | NUR ---
Patient discharged from unit.
== END 2021-11-06 13:30 | disposition home or self-care (01) | DRG 642 ==
LOC: ER 19:40 → TELE3 21:06 → OBSER 21:59 → TRANSITION 11-03 08:30 → CCU 11-03 17:00 → MEDSURG3 11-04 18:24
PROVIDERS: ADMIT Internal Medicine; ATTEND Internal Medicine
DX: E78.1 Pure hyperglyceridemia (principal); N39.0 Urinary tract infection, site not specified; E11.65 Type 2 diabetes mellitus with hyperglycemia; E66.9 Obesity, unspecified; G89.4 Chronic pain syndrome; I10 Essential (primary) hypertension; I25.10 Atherosclerotic heart disease of native coronary artery without angina pectoris; K76.0 Fatty (change of) liver, not elsewhere classified; Z79.82 Long term (current) use of aspirin; Z79.4 Long term (current) use of insulin; Z91.19 Patient's noncompliance with other medical treatment and regimen; Z68.38 Body mass index [BMI] 38.0-38.9, adult; M47.9 Spondylosis, unspecified; K76.89 Other specified diseases of liver; Z79.84 Long term (current) use of oral hypoglycemic drugs; Z20.822 Contact with and (suspected) exposure to COVID-19; Z83.438 Family history of other disorder of lipoprotein metabolism and other lipidemia
CPT/HCPCS: 36415; 71045; 83690; 83735; 84100; 84478; 84484; 84681; 85025; 93005; A4663; G0378; J0696; J1170; J1650; J1815; J2405; J3480

== ENCOUNTER 2025-03-22 18:38 | Emergency (ER) | payer MEDICARE ==
[~2025-03-22] VITALS: Ht 172.7 cm; Wt 113.4 kg
[~2025-03-22 18:38] MED LIST changes: +LOSA50TA39 PO
[2025-03-22 18:39] VITALS: BP 149/91
[2025-03-22] MEDS ORDERED: KETOROLAC TROMETHAMINE 30 MG INJ ONE (20:25)
[2025-03-22] MEDS: KETOROLAC TROMETHAMINE 30 MG INJ IM ONE (20:31)
[2025-03-22] MEDS ORDERED: CYCL5TAB PO (22:03)
[2025-03-22] MEDS ORDERED: NAPR-1009 PO (22:03)
[2025-03-22 22:21] VITALS: BP 140/89; O2SAT 99
== END 2025-03-22 22:22 | disposition home or self-care (01) ==
LOC: ER 18:42
DX: S33.5XXA Sprain of ligaments of lumbar spine, initial encounter (principal); S20.219A Contusion of unspecified front wall of thorax, initial encounter; S43.402A Unspecified sprain of left shoulder joint, initial encounter; S06.0X0A Concussion without loss of consciousness, initial encounter; E78.00 Pure hypercholesterolemia, unspecified; G89.29 Other chronic pain; I25.10 Atherosclerotic heart disease of native coronary artery without angina pectoris; E11.9 Type 2 diabetes mellitus without complications; K86.1 Other chronic pancreatitis; Z79.82 Long term (current) use of aspirin; Z79.84 Long term (current) use of oral hypoglycemic drugs; Z79.899 Other long term (current) drug therapy; Z88.5 Allergy status to narcotic agent; V43.52XA Car driver injured in collision with other type car in traffic accident, initial encounter; Y93.89 Activity, other specified; Y92.410 Unspecified street and highway as the place of occurrence of the external cause; Y99.8 Other external cause status
CPT/HCPCS: 99284; 71046; 72100; 96372; J1885; A4606; A4663